=== PATIENT | female | born 1935 | race Hispanic/Latino ===

== ENCOUNTER 2018-06-18 22:48 | Observation (INO) | payer OTHER ==
[2018-06-18] MEDS ORDERED: FUROSEMIDE 40 MG/4 ML VIAL ONE (23:42)
[2018-06-18] MEDS ORDERED: IPRATROPIUM BROM 0.5MG/2.5ML ONE (23:42)
[2018-06-18] MEDS ORDERED: ALBUTEROL 2.5 MG/3 ML NEB SOL ONE (23:42)
[2018-06-19 00:13] LABS: Protime INR 1.31
[2018-06-19 00:16] LABS: Absolute Lymphocytes (CBC) 1.1 K/uL (0.7-4.9); Absolute Monocytes 0.6 K/uL (0.1-1.3); Absolute Neutrophil 2.4 K/uL (1.8-8.0); Basophils % 0.9 % (0-1.3); Eosinophils % 4.4 % (0-4.4); Hematocrit 32.5 % (36.0-45.0); Lymphocytes % 25.1 % (15.3-44.8); MPV 8.9 fL (7.6-11.3); Monocytes % 14.2 % (3.3-12.3); RBC Red Blood Cell Count 3.56 M/uL (3.86-4.86)
[2018-06-19 00:22] LABS: Albumin 2.6 g/dL (3.4-5.0); Bilirubin Direct 0.4 mg/dL (0-0.2); Bilirubin Total 0.8 mg/dL (0.2-1.0); Magnesium 2.1 mg/dL (1.8-2.4); Potassium 3.6 mmol/L (3.5-5.1); Protein, Total 7.1 g/dL (6.4-8.2); Troponin (Emerg Dept Use Only) 0.05 ng/mL (0.0-0.045)
[2018-06-19 00:37] LABS: Blood Morphology Comment NOTED (NOT SEEN); Platelet Estimate DECR; Urine White Blood Cell Casts OK
[2018-06-19 00:38] LABS: Ovalocytes 1+
--- NOTE | 2018-06-19 00:38 | ER ---
Nurse's Notes [facility] Name: Claudia Fowler Age: 82 yrs Sex: Female : 1935 Arrival Date: 06/18/2018 Time: 22:53 Bed 8 Private MD: Diagnosis: Acute systolic (congestive) heart failure Presentation: 06/18 23:02 Presenting complaint: She has been having cold symptoms for about two weeks. Today she ed1 had an increase in shortness of breath and swelling. Transition of care: patient was not received from another setting of care. Onset of symptoms was June 18, 2018. Risk Assessment: Do you want to hurt yourself or someone else? Patient reports no desire to harm self or others. Initial Sepsis Screen: Does the patient meet any 2 criteria? No. Patient's initial sepsis screen is negative. Does the patient have a suspected source of infection? No. Patient's initial sepsis screen is negative. Care prior to arrival: Medication(s) given: Pt was taking DayQuil and NyQuil. 23:02 Method Of Arrival: Wheelchair ed1 23:02 Acuity: REJI 3 ed1 Triage Assessment: 23:08 General: Appears in no apparent distress. Behavior is calm, cooperative. Pain: Denies ed1 pain. EENT: Oral mucosa is moist. Neuro: Level of Consciousness is awake, alert, obeys commands, Oriented to person, place, time, situation. Cardiovascular: Denies chest pain, Heart tones S1 S2 present. Cardiovascular: Edema is 2+ to left ankle and right ankle. Respiratory: Reports shortness of breath at rest cough that is non-productive, Onset: The symptoms/episode began/occurred about 2 weeks ago, the patient has mild shortness of breath. GI: Abdomen is non-distended, Bowel sounds present X 4 quads. Abd is soft and non tender X 4 quads. Patient currently denies diarrhea, nausea, vomiting. : No signs and/or symptoms were reported regarding the genitourinary system. Derm: Skin is fragile, is thin, Skin is dry, Skin is normal, Skin temperature is warm. Musculoskeletal: Circulation, motion, and sensation intact. Capillary refill < 3 seconds, in bilateral fingers. Range of motion: intact in all extremities. Historical: - Allergies: 23:08 No Known Allergies; ed1 - Home Meds: 23:08 aspirin 81 mg Oral chew 1 tab once daily [Active]; atorvastatin 20 mg oral tab 1 tab ed1 once daily [Active]; carvedilol 25 mg oral tab 1 tab 2 times per day [Active]; lisinopril 40 mg Oral tab 1 tab once daily [Active]; furosemide 20 mg Oral tab 1 tab once daily [Active]; Fish Oil 1,000 mg oral cap daily [Active]; Vitamin D Oral 1,000 unit daily [Active]; vitamin A 25,000 unit Oral cap 1 cap once daily [Active]; Vitamin B-12 1,000 mcg Oral TbER daily [Active]; - PMHx: 23:08 CAD; ed1 - PSHx: 23:08 CABG; ed1 - Immunization history:: Adult Immunizations up to date. - Social history:: Smoking status: Patient/guardian denies using tobacco. - Ebola Screening: : Patient negative for fever greater than or equal to 101.5 degrees Fahrenheit, and additional compatible Ebola Virus Disease symptoms Patient denies exposure to infectious person Patient denies travel to an Ebola-affected area in the 21 days before illness onset No symptoms or risks identified at this time. Screenin:12 Abuse screen: Denies threats or abuse. Denies injuries from another. Nutritional ed1 screening: No deficits noted. Tuberculosis screening: No symptoms or risk factors identified. Fall Risk No fall in past 12 months (0 pts). No secondary diagnosis (0 pts). No IV (0 pts). Ambulatory Aid- Crutches/Cane/Walker (15 pts). Gait- Weak (10 pts.). Mental Status- Oriented to own ability (0 pts). Total Alan Fall Scale indicates Low Risk Score (25-44 pts). Fall prevention measures have been instituted. Side Rails Up X 2 Frequent Obs/Assesments occuring Family Present and informed to notify staff if they need to leave bedside As available Patient and Family Educated on Fall Prevention Program and strategies. Assessment: 23:12 Reassessment: See triage assessment. Cardiovascular: Rhythm is sinus rhythm. ed1 Respiratory: Airway is patent Respiratory effort is even, unlabored, Respiratory pattern is regular, symmetrical, Breath sounds with wheezes bilaterally. 06/19 00:08 Reassessment: Patient appears in no apparent distress at this time. Patient and/or ed1 family updated on plan of care and expected duration. Pain level reassessed. Patient is alert, oriented x 3, equal unlabored respirations, skin warm/dry/pink. Pt reports mid back pain that is coming and going. Pt repositioned for comfort. Dr. Mcmillan notified, no new orders received. 00:57 Reassessment: Patient appears in no apparent distress at this time. Patient and/or ed1 family updated on plan of care and expected duration. Pain level reassessed. Patient is alert, oriented x 3, equal unlabored respirations, skin warm/dry/pink. Patient states feeling better. Patient states symptoms have improved. 01:24 Reassessment: Patient appears in no apparent distress at this time. Patient and/or ed1 family updated on plan of care and expected duration. Pain level reassessed. Patient is alert, oriented x 3, equal unlabored respirations, skin warm/dry/pink. Patient states feeling better. Patient states symptoms have improved. Vital Signs: 06/18 23:08 BP 147 / 63; Pulse 66; Resp 21; Temp 98.2(O); Pulse Ox 98% on R/A; Weight 90.72 kg (R); ed1 Height 5 ft. 0 in. (152.40 cm) (R); Pain 0/10; 06/19 00:08 BP 138 / 51; Pulse 65; Resp 18; Pulse Ox 97% on R/A; Pain 8/10; ed1 00:57 BP 122 / 77; Pulse 65; Resp 14; Temp 98(O); Pulse Ox 97% on R/A; Pain 5/10; ed1 01:24 BP 142 / 52; Pulse 65; Resp 15; Temp 97.9(O); Pulse Ox 96% on R/A; Pain 5/10; ed1 06/18 23:08 Body Mass Index 39.06 (90.72 kg, 152.40 cm) ed1 ED Course: 06/18 22:53 Patient arrived in ED. es 22:56 Tonia Call, HAYLEY is Primary Nurse. ed1 22:56 Santi Mcmillan MD is Attending Physician. gs 23:04 Triage completed. ed1 23:08 Arm band placed on. ed1 23:11 X-ray completed. Portable x-ray completed in exam room. Patient tolerated procedure sg4 well. 23:12 Patient has correct armband on for positive identification. Placed in gown. Bed in low ed1 position. Call light in reach. Side rails up X2. Adult w/ patient. phonograph mechanic on. Pulse ox on. NIBP on. Warm blanket given. 23:31 XRAY Chest (1 view) In Process Unspecified. EDMS 23:39 Initial lab(s) drawn, by me, sent to lab. Initial Neb Treatment Given as ordered ed1 Patient was instructed and evaluated on procedure. Inserted saline lock: 22 gauge in right forearm, using aseptic technique. Blood collected. 06/19 00:36 Ana Maria Napoles MD is Hospitalizing Provider. gs 01:24 No provider procedures requiring assistance completed. Patient admitted, IV remains in ed1 place. intact, No redness/swelling at site. Administered Medications: 06/18 23:38 Drug: Albuterol 2.5 mg Route: Inhalation; ed1 06/19 00:57 Follow up: Response: No adverse reaction ed1 06/18 23:38 Drug: AtroVENT Aerosol 0.5 mg Route: Inhalation; ed1 06/19 00:56 Follow up: Response: No adverse reaction ed1 06/18 23:38 Drug: Lasix 40 mg Route: IVP; Site: right forearm; ed1 06/19 00:56 Follow up: Urine output 200 ml; Response: No adverse reaction ed1 Output: 00:56 Urine: 200ml; Total: 200ml. ed1 Outcome: 00:36 Decision to Hospitalize by Provider. gs 01:24 Admitted to Med/surg accompanied by tech, family with patient, via wheelchair, room ed1 211, with chart, Report called to Chioma Ortega LVN 01:24 Condition: good 01:24 Discharge instructions given to patient, family, Instructed on the need for admit, Demonstrated understanding of instructions. 01:45 Patient left the ED. ak1 Signatures: Dispatcher [employer] EDMS Rylee Keita Erika, RN RN ed1 Marilia Carcamo RN RN ak1 Santi Mcmillan MD MD gs Garcia, Susana sg4 Corrections: (The following items were deleted from the chart) 00:57 06/18 23:08 BP 147 / 63; Pulse 66bpm; Resp 21bpm; Pulse Ox 98% RA; 90.72 kg Reported; ed1 Height 5 ft. 0 in. Reported; BMI: 39.0; Pain 0/10; ed1
--- NOTE | 2018-06-19 00:39 | EDPHYS ---
Physician Documentation [facility] Name: Claudia Fowler Age: 82 yrs Sex: Female : 1935 Arrival Date: 06/18/2018 Time: 22:53 Bed 8 Private MD: ED Physician Santi Mcmillan HPI: 06/19 00:31 This 82 yrs old Female presents to ER via Wheelchair with complaints of gs Shortness Of Breath, Swelling all over. 00:31 Onset: The symptoms/episode began/occurred 2 week(s) ago, and became worse and became gs persistent. Duration: The symptoms are continuous, and are steadily getting worse. The patient's shortness of breath is aggravated by exertion. Associated signs and symptoms: Pertinent negatives: chest pain, non-productive cough, productive cough, fever. Severity of symptoms: At their worst the symptoms were moderate in the emergency department the symptoms are unchanged. The patient has experienced similar episodes in the past, a few times. The patient has not recently seen a physician. Historical: - Allergies: 06/18 23:08 No Known Allergies; ed1 - Home Meds: 23:08 aspirin 81 mg Oral chew 1 tab once daily [Active]; atorvastatin 20 mg oral tab 1 tab ed1 once daily [Active]; carvedilol 25 mg oral tab 1 tab 2 times per day [Active]; lisinopril 40 mg Oral tab 1 tab once daily [Active]; furosemide 20 mg Oral tab 1 tab once daily [Active]; Fish Oil 1,000 mg oral cap daily [Active]; Vitamin D Oral 1,000 unit daily [Active]; vitamin A 25,000 unit Oral cap 1 cap once daily [Active]; Vitamin B-12 1,000 mcg Oral TbER daily [Active]; - PMHx: 23:08 CAD; ed1 - PSHx: 23:08 CABG; ed1 - Immunization history:: Adult Immunizations up to date. - Social history:: Smoking status: Patient/guardian denies using tobacco. - Ebola Screening: : Patient negative for fever greater than or equal to 101.5 degrees Fahrenheit, and additional compatible Ebola Virus Disease symptoms Patient denies exposure to infectious person Patient denies travel to an Ebola-affected area in the 21 days before illness onset No symptoms or risks identified at this time. ROS: 06/19 00:31 Cardiovascular: Positive for edema. gs All other systems are negative. Exam: 00:31 Head/Face: Normocephalic, atraumatic. Eyes: Pupils equal round and reactive to light, gs extra-ocular motions intact. Lids and lashes normal. Conjunctiva and sclera are non-icteric and not injected. Cornea within normal limits. Periorbital areas with no swelling, redness, or edema. ENT: Nares patent. No nasal discharge, no septal abnormalities noted. Tympanic membranes are normal and external auditory canals are clear. Oropharynx with no redness, swelling, or masses, exudates, or evidence of obstruction, uvula midline. Mucous membranes moist. Neck: Trachea midline, no thyromegaly or masses palpated, and no cervical lymphadenopathy. Supple, full range of motion without nuchal rigidity, or vertebral point tenderness. No Meningismus. Chest/axilla: Normal chest wall appearance and motion. Nontender with no deformity. No lesions are appreciated. 00:31 Abdomen/GI: Soft, non-tender, with normal bowel sounds. No distension or tympany. No guarding or rebound. No evidence of tenderness throughout. Back: No spinal tenderness. No costovertebral tenderness. Full range of motion. Skin: Warm, dry with normal turgor. Normal color with no rashes, no lesions, and no evidence of cellulitis. MS/ Extremity: Pulses equal, no cyanosis. Neurovascular intact. Full, normal range of motion. Neuro: Awake and alert, GCS 15, oriented to person, place, time, and situation. Cranial nerves II-XII grossly intact. Motor strength 5/5 in all extremities. Sensory grossly intact. Cerebellar exam normal. Normal gait. 00:31 Constitutional: The patient appears alert, awake. 00:31 Cardiovascular: Rate: normal, Rhythm: regular, Pulses: no pulse deficits are appreciated, Edema: 2+ edema to level of left midcalf and right midcalf. 00:31 ECG was reviewed by the Attending Physician. 00:31 Respiratory: moderate respiratory distress is noted, Respirations: shallow respirations, Breath sounds: wheezing: inspiratory expiratory Vital Signs: 06/18 23:08 BP 147 / 63; Pulse 66; Resp 21; Temp 98.2(O); Pulse Ox 98% on R/A; Weight 90.72 kg (R); ed1 Height 5 ft. 0 in. (152.40 cm) (R); Pain 0/10; 06/19 00:08 BP 138 / 51; Pulse 65; Resp 18; Pulse Ox 97% on R/A; Pain 8/10; ed1 00:57 BP 122 / 77; Pulse 65; Resp 14; Temp 98(O); Pulse Ox 97% on R/A; Pain 5/10; ed1 01:24 BP 142 / 52; Pulse 65; Resp 15; Temp 97.9(O); Pulse Ox 96% on R/A; Pain 5/10; ed1 06/18 23:08 Body Mass Index 39.06 (90.72 kg, 152.40 cm) ed1 MDM: 06/18 23:05 Patient medically screened. 06/19 00:31 Differential diagnosis: CHF exacerbation, Chronic Obstructive Pulmonary Disease gs Myocardial Infarction pneumonia. Data reviewed: vital signs, nurses notes, lab test result(s), EKG, radiologic studies. Counseling: I had a detailed discussion with the patient and/or guardian regarding: the historical points, exam findings, and any diagnostic results supporting the discharge/admit diagnosis, the need for further work-up and treatment in the hospital. Response to treatment: the patient's symptoms have markedly improved after treatment, and as a result, I will admit patient. 06/18 23:06 Order name: Basic Metabolic Panel 06/18 23:06 Order name: CBC with Diff 06/18 23:06 Order name: LFT's; Complete Time: 00: 06/18 23:06 Order name: Magnesium; Complete Time: 00: 06/18 23:06 Order name: NT PRO-BNP; Complete Time: 00: 06/18 23:06 Order name: PT-INR; Complete Time: 00: 06/18 23:06 Order name: Troponin (emerg Dept Use Only); Complete Time: 00: 06/18 23:06 Order name: XRAY Chest (1 view) 06/18 23:06 Order name: EKG; Complete Time: 23:07 06/18 23:06 Order name: Basic Metabolic Panel; Complete Time: 00: [facility] 06/19 00:38 Order name: CBC Smear Scan [facility] 06/18 23:06 Order name: Cardiac monitoring; Complete Time: 23:40 06/18 23:06 Order name: EKG - Nurse/Tech; Complete Time: 23:39 06/18 23:06 Order name: IV Saline Lock; Complete Time: 23:39 06/18 23:06 Order name: Labs collected and sent; Complete Time: 23:39 06/18 23:06 Order name: O2 Per Protocol; Complete Time: 23:39 06/18 23:06 Order name: O2 Sat Monitoring; Complete Time: 23:39 06/19 00:28 Order name: EKG - Nurse/Tech; Complete Time: 00:56 EC:31 Rate is 66 beats/min. Rhythm is regular. MA interval is normal. T waves are Inverted. No ST changes noted. Clinical impression: NSR w/ Non-specific ST/T Changes. Interpreted by me. Administered Medications: 06/18 23:38 Drug: Albuterol 2.5 mg Route: Inhalation; ed1 06/19 00:57 Follow up: Response: No adverse reaction ed1 06/18 23:38 Drug: AtroVENT Aerosol 0.5 mg Route: Inhalation; ed1 06/19 00:56 Follow up: Response: No adverse reaction ed1 06/18 23:38 Drug: Lasix 40 mg Route: IVP; Site: right forearm; ed1 06/19 00:56 Follow up: Urine output 200 ml; Response: No adverse reaction ed1 Disposition: 00:36 Critical Care:. gs Disposition: 06/19/18 00:36 Hospitalization ordered by Ana Maria Napoles for Observation. Preliminary diagnosis is Acute systolic (congestive) heart failure. - Bed requested for Telemetry/MedSurg (observation). - Status is Observation. ak1 - Condition is Stable. - Problem is new. - Symptoms have improved. UTI on Admission? No Critical care time excluding procedures: 00:36 Critical care time: Bedside Care: 10 minutes, Consultation: 10 minutes, Family gs Intervention: 10 minutes. Total time: 30 minutes Signatures: Dispatcher [employer] Fabiola Jerome RN RN kl Riggs, Erika, RN RN ed1 Marilia Carcamo RN RN ak1 Santi Mcmillan MD MD Corrections: (The following items were deleted from the chart) 01:07 00:36 Hospitalization Ordered by Ana Maria Napoles MD for Observation. Preliminary kl diagnosis is Acute systolic (congestive) heart failure. Bed requested for Telemetry/MedSurg (observation). Status is Observation. Condition is Stable. Problem is new. Symptoms have improved. UTI on Admission? No. gs 01:45 01:07 06/19/2018 00:36 Hospitalization Ordered by Ana Maria Napoles MD for Observation. ak1 Preliminary diagnosis is Acute systolic (congestive) heart failure. Bed requested for Telemetry/MedSurg (observation). Status is Observation. Condition is Stable. Problem is new. Symptoms have improved. UTI on Admission? No. kl
[2018-06-19] MEDS ORDERED: ACETAMINOPHEN 500 MG TAB PO PRN (00:57)
[2018-06-19] MEDS ORDERED: ONDANSETRON 4 MG/2 ML VIAL IV PRN (00:57)
[2018-06-19] MEDS ORDERED: FUROSEMIDE 40 MG/4 ML VIAL IV SCH (02:16)
--- NOTE | 2018-06-19 05:00 | P.HP ---
Certification for Inpatient Patient admitted to: Observation With expected LOS: <2 Midnights Practitioner: I am a practitioner with admitting privileges, knowledge of patient current condition, hospital course, and medical plan of care. Services: Services provided to patient in accordance with Admission requirements found in Title 42 Section 412.3 of the Code of Federal Regulations Patient History Date of Service: 06/19/18 Reason for admission: CHF exacerbation History of Present Illness: Ms Fowler is an 82 years old woman with history of CAD s/p CABG, HTN, who start about 2 weeks ago with cold signs. Over this time, she has had progressively increasing in lower extremity swelling and SOB. Today, her symptoms got worse and she came to ED for evaluation. The patient denied chest pain, dizziness, palpitation or sweating episodes. No history of fever or chills either. Her SOB its worse with light activity. Lab work remarkable for normal WBC count and elevated ProBNP. O2 sat was 98% on RA, CXR bilateral infiltrate consistent with pulmonary edema. Allergies No Known Allergies Allergy (Verified 06/19/18 02:16) Home medications list reviewed: Yes Home Medications: Aspirin Chewable [Aspirin Chewable*] 81 mg PO DAILY 06/19/18 Atorvastatin Calcium [Lipitor*] 20 mg PO DAILY 06/19/18 Carvedilol [Coreg*] 25 mg PO BID 06/19/18 Cholecalciferol (Vitamin D3) [Vitamin D 1000 Iu Tab*] 1,000 unit PO DAILY Cyanocobalamin [Vitamin B-12*] 1,000 mcg PO DAILY 06/19/18 Furosemide [Lasix*] 20 mg PO DAILY 06/19/18 Lisinopril [Zestril] 40 mg PO DAILY 06/19/18 [place]-3 Fatty Acids/Fish Oil [Fish Oil 1,000 mg Capsule] 1 cap PO DAILY Vitamin A [Vitamin A*] 25,000 unit PO DAILY 06/19/18 - Past Medical/Surgical History Has patient received pneumonia vaccine in the past: No Diabetic: No -: HTN -: CAD -: CHF -: BYPASS - Social History Smoking Status: Never smoker Alcohol use: No CD- Drugs: No Caffeine use: No Place of Residence: Home Review of Systems 10-point ROS is otherwise unremarkable Physical Examination - Vital Signs Temperature: 97.6 F Blood Pressure: 135/60 Pulse: 67 Respirations: 60 Pulse Ox (%): 16 - Physical Exam General: Alert, In no apparent distress HEENT: Atraumatic, PERRLA, Mucous membr. moist/pink, EOMI, Sclerae nonicteric Neck: Supple, 2+ carotid pulse no bruit, No LAD, Without JVD or thyroid abnormality Respiratory: Diminished, Crackles/rales (bibasilar rales) Cardiovascular: Regular rate/rhythm, Normal S1 S2 Gastrointestinal: Normal bowel sounds, No tenderness Musculoskeletal: No tenderness, Swelling (bilateral LE edema 2+) Integumentary: No rashes Neurological: Normal speech, Normal strength at 5/5 x4 extr, Normal tone, Normal affect Lymphatics: No axilla or inguinal lymphadenopathy - Studies Laboratory Data (last 24 hrs) 06/18/18 23:27: PT 15.5 H, INR 1.31 06/18/18 23:27: WBC 4.4, Hgb 10.9 L, Hct 32.5 L, Plt Count 95 L 06/18/18 23:27: Sodium 142, Potassium 3.6, BUN 15, Creatinine 1.03, Glucose 113 H, Magnesium 2.1, Total Bilirubin 0.8, AST 26, ALT 14, Alkaline Phosphatase 92 Assessment and Plan - Problems (Diagnosis) (1) Acute on chronic systolic CHF (congestive heart failure) Current Visit: Yes Status: Acute (2) CAD (coronary artery disease) Current Visit: Yes Status: Acute Qualifiers: Coronary Disease-Associated Artery/Lesion type: bypass graft [place] vs. transplanted heart: [place] heart Associated angina: without angina Qualified Code(s): I25.810 - Atherosclerosis of coronary artery bypass graft(s) without angina pectoris (3) HTN (hypertension) Current Visit: Yes Status: Acute Qualifiers: Hypertension type: essential hypertension Qualified Code(s): I10 - Essential (primary) hypertension - Plan The patient will be admitted to the hospital due to acute CHF exacerbation. No records of previous ECHO, however, her granddaughter, states that her EF is known to be abnormal, about 20%. Will order new ECHO today, continue close monitoring of body fluid balance, start IV lasix. Will resume home medication once verified. - Advance Directives Does patient have a Living Will: Yes Does patient have a Durable POA for Healthcare: Yes - Code Status/Comfort Care Code Status: Do Not Resuscitate
--- NOTE | 2018-06-19 07:58 | RAD REPORT ---
EXAM DESCRIPTION: RAD - Chest Single View - 06/18/2018 11:31 pm CLINICAL HISTORY: Shortness of breath COMPARISON: None. TECHNIQUE: AP portable chest image was obtained 2329 hours . FINDINGS: Lung volumes are low. Interstitial markings are prominent. Baseline for the patient is unk nown. Heart size and vasculature are prominent in part due to the shallow inspiration and portable [place]. Bilateral costophrenic angle blunting is present more pronounced on the left. No pneumothora x. CABG surgical changes are present. No acute bony abnormality seen. No acute aortic findings suspec neel. IMPRESSION: Limited shallow inspiration film showing evidence for a mild failure or volume overload. Increased left base opacification could indicate superimposed atelectasis and/or pneumonia.
[2018-06-19] MEDS: ENOXAPARIN 40 MG/0.4 ML SQ SCH (09:59)
[2018-06-19] MEDS: FUROSEMIDE 40 MG/4 ML VIAL IV SCH ×2 (09:59→16:26)
--- NOTE | 2018-06-19 12:16 | PN ---
Date of Progress Note: 06/19/2018 The patient is seen and examined. Chart reviewed and case discussed with RN. Family at the bedside. Treatment plan explained. All questions answered. Code Status: Do not resuscitate. Medications: List reviewed. Physical Examination: Vital Signs: Temperature 98, heart rate 65, blood pressure 138/61, respirations 20, O2 97% on room a ir. General: Awake, alert, oriented x3, not in any acute distress. Elderly female, obese. CV: S1 and S2. Regular rate and rhythm. Peripheral pulses present. Respiratory: Diminished breath sounds. Some crackles heard. No wheezing or stridor. Gastrointestinal: Abdomen is soft, nontender, nondistended. Positive bowel sounds. Extremities: No clubbing, cyanosis. The patient has 3+ peripheral edema. Neuro: Nonfocal. Laboratory Data: Troponin is 0.05. Chest x-ray shows mild failure or volume overload, left base opa cification could be atelectasis or pneumonia. Assessment And Plan: An 82-year-old female with: 1.Acute on chronic systolic congestive heart failure. Last known ejection fraction is 30%-35%. The patient has not seen her systems security analyst in a couple of years. Her systems security analyst is in [place]. We kerry l continue with daily weights. Strict I's and O's. We will continue with fluid-restricted diet. Co ntinue diuresis. Congestive heart failure guidelines. 2.Coronary artery disease, [place] artery and [place] heart, status post coronary artery bypass grafti ng, stable. 3.Essential hypertension, stable. Resume home medications as appropriate. 4.Obesity, body mass index of 33.9. 5.Gastrointestinal and deep venous thrombosis prophylaxis addressed. The patient is on Lovenox. Plan: Continue diuresis. The patient does have some mild elevated troponin, likely due to congestiv e heart failure. No chest pain. SA/MODL Voice ID: [id number] Report ID: [id number]
[2018-06-19] MEDS ORDERED: ATORVASTATIN 20 MG TAB PO SCH (21:00)
[2018-06-19] MEDS: CARVEDILOL 25 MG TAB PO SCH (21:11)
[2018-06-20] MEDS: FUROSEMIDE 40 MG/4 ML VIAL IV SCH ×2 (00:33→08:56)
[2018-06-20 05:57] VITALS: BMI 31.0
[2018-06-20 06:25] LABS: Albumin 2.2 g/dL (3.4-5.0); Bilirubin Total 0.9 mg/dL (0.2-1.0); Potassium 3.1 mmol/L (3.5-5.1); Protein, Total 6.2 g/dL (6.4-8.2); Troponin I 0.07 ng/mL (0.0-0.045)
[2018-06-20] MEDS ORDERED: KCL 20 MEQ/100 mL IVPB 20 MEQ/100 ML BAG IV SCH (07:00)
[2018-06-20] MEDS ORDERED: POTASSIUM CL SA 10 MEQ TAB PO ONE (07:45)
[2018-06-20 08:44] VITALS: O2SAT 93
[2018-06-20 08:54] VITALS: BP 157/65; TEMP 98.3
[2018-06-20] MEDS: ENOXAPARIN 40 MG/0.4 ML SQ SCH (08:56)
[2018-06-20] MEDS: CARVEDILOL 25 MG TAB PO SCH (08:56)
[2018-06-20] MEDS ORDERED: LISINOPRIL 20 MG TAB PO SCH (09:00)
[2018-06-20] MEDS ORDERED: ASPIRIN 81 MG CHEWABLE TABLET PO SCH (09:00)
--- NOTE | 2018-06-21 03:41 | DS ---
Date of Discharge: 06/20/2018 Discharge Diagnoses: 1.Acute on chronic systolic congestive heart failure. Last known ejection fraction 30%-35%. 2.Coronary artery disease [place] artery and [place] heart status post coronary artery bypass graft. 3.Essential hypertension. 4.Obesity, BMI of 33.9. 5.Elevated troponin level. 6.Hyperkalemia. Hospital Course: The patient is an 82-year-old female with history of coronary artery disease status post CABG, hypertension, comes in with progressive shortness of breath and lower extremity swelling. She was found to have CHF exacerbation. Her chest x-ray showed pulmonary edema. She was started o n CHF guidelines. She did have some hypokalemia and mildly elevated troponin levels, which was likel y related to demand mismatch. No chest pain. EKG did not show any acute ST elevation. The patient was then weighed daily. She diuresed well and had improvement in her symptoms. Her daily weight vel wed decrease and her fluid balance was negative. The patient's swelling improved. She was able to a mbulate, move around well. The patient was then cleared for discharge. She was sent home in stable condition. She was counseled regarding fluid restricted diet and to establish care with a cardiologi . She has not seen a change attendant since in [place] and has been several years. Medications: As per medication reconciliation list. Followup: Follow up with primary care physician in 2-3 days. Establish care with change attendant in [facility] area, Dr. Kaplan in [place]. Return to ER for worsening condition. Diet: Low-sodium, fluid-restricted diet. Activity: Fall precautions. The patient instructed to weigh herself daily, to increase the dose of Lasix when she finds herself getting more than 3 pounds and to call her physician. The patient refus ed home health with physical therapy. Her daughter and son-in-law are both paramedics and she has go od social support. She felt that she did not need home health and understands the risks. She does u se a cane for ambulation. Physical Examination: General: Awake, alert and oriented x3. Elderly female, obese. CV: S1, S2. Respiratory: Moving air well bilaterally. Abdomen: Soft, nontender, nondistended. Positive bowel sounds. Extremities: No clubbing or cyanosis. 1+ edema, improved significantly. Neurologic: Nonfocal. SA/MODL Voice ID: [id number] Report ID: [id number]
--- NOTE | 2018-06-21 07:59 | EKG ---
Test Date: 2018-06-18 Test Time: 23:13:15 Emt I/85: TERESA MEASUREMENT RESULTS: Intervals: Rate: 66 NH: 122 QRSD: 96 QT: 454 QTc: 475 [place]: P: 37 NH: 122 QRS: 76 T: -82 INTERPRETIVE STATEMENTS: Normal sinus rhythm Cannot rule out Anterior infarct, age undetermined Abnormal ECG Compared to ECG 05/14/2007 06:16:04 Myocardial infarct finding now present T-wave abnormality no longer present Possible ischemia no longer present Prolonged QT interval no longer present Electronically Signed On 06-21-18 07:54:40 CLINICAL RESEARCH MANAGER by Ayaz Rivero
--- NOTE | 2018-06-21 20:54 | EKG ---
Test Date: 2018-06-19 Test Time: 00:41:37 Stationary Boiler Fireman: JEANR MEASUREMENT RESULTS: Intervals: Rate: 66 VA: 146 QRSD: 96 QT: 442 QTc: 463 [place]: P: 96 VA: 146 QRS: -10 T: 206 INTERPRETIVE STATEMENTS: Normal sinus rhythm Nonspecific ST and T wave abnormality Abnormal ECG Compared to ECG 06/18/2018 23:13:15 ST (T wave) deviation now present Myocardial infarct finding no longer present Electronically Signed On 06-21-18 20:48:37 DRY HEAT ROOM ATTENDANT by Ayaz Rivero
== END 2018-06-20 12:10 | disposition home or self-care (01) ==
LOC: ER 22:48 → ERHOLD 06-19 00:36 → 2ND 06-19 01:37
PROVIDERS: ADMIT Internal Medicine; ATTEND Internal Medicine
DX: I11.0 Hypertensive heart disease with heart failure (principal); I50.23 Acute on chronic systolic (congestive) heart failure; R79.89 Other specified abnormal findings of blood chemistry; E87.5 Hyperkalemia; I25.10 Atherosclerotic heart disease of native coronary artery without angina pectoris; Z95.1 Presence of aortocoronary bypass graft; Z79.82 Long term (current) use of aspirin; E66.9 Obesity, unspecified; Z68.33 Body mass index [BMI] 33.0-33.9, adult
CPT/HCPCS: 36415 ×2; 71045; 80048; 80053; 80076; 83735; 83880; 84484 ×3; 85025; 85610; 93005 ×2; 94760 ×3; 96374; 99285; G0378 ×2; J1650 ×2; J1940 ×5

== ENCOUNTER 2019-03-21 09:06 | Inpatient (IN) | payer OTHER ==
--- NOTE | 2019-03-21 10:50 | R.PREADM ---
SCREENING DATE AND TIME 03/21/2019 09:22 (CDT) ANTICIPATED REHAB ADMISSION DATE 03/23/2019 REFERRING FACILITY [facility] REFERRAL DATE AND TIME 03/21/2019 09:23 (CDT) Previous Rehabilitation(s): No. REFERRING PHYSICIAN [facility] REHAB FACILITY [facility] CLINICAL LIAISON Robert Elena PHYSICIAN REVIEWER Dr. Milton Torres M.D. MR# [id number] NAME LUCIANELSON WESLEY ADDRESS [address] [facility] PHONE [facility] [id number] DATE OF 1935 AGE 83 SSN# [id number] GENDER female MARITAL STATUS RACE white ADMIT FROM Outside Hospital PRE-HOSPITAL LIVING SETTING Home HOME TYPE AND DETAILS Type of home: Single Family # of steps to enter the residence: 0 # of steps within the residence: 0 # of levels in the residence: 1 PRE-HOSPITAL LIVING WITH Attendant FAMILY SUPPORT No PRIMARY FAMILY CONTACT NAME ID [place] PRIMARY FAMILY CONTACT PHONE PHONE PRIMARY FAMILY CONTACT ON ADM.? no IS PRIMARY FAMILY CONTACT AUTH. REP.? no 1ST EMERGENCY CONTACT [id number] 1ST CONTACT PHONE PHONE 1ST CONTACT ON ADM. no IS 1ST CONTACT AUTH. REP.? no PHONE 2ND CONTACT ON ADM.? no PATIENT EMPLOYMENT STATUS Retired (for age) PATIENT EMPLOYER No Employer PAYOR INFORMATION: 1ST PAYOR NAME [email or web address] 1ST PAYOR PHONE 1ST PAYOR INJURY/ILLNESS DUE TO ACCIDENT? No ANOTHER REPUBLICAN RESPONSIBLE? No PRIMARY REHAB/ACUTE DIAGNOSIS: L STORAGE ARCHITECT occlusion ONSET DATE 03/10/2019 REHAB IMPAIRMENT CATEGORY (SHAORNA): 01 Stroke (STR) MEETS 60% rule AFFECTED EXTREMITIES: LLE, and LUE PRIMARY DIAGNOSIS-RELATED SURGERIES: No surgeries related to the primary diagnosis were performed. COMORBID REHAB/ACUTE DIAGNOSES: - N/A CHF hypertension ckd stage III intracranial Aneurysm INTERVENTIONS: - Hypertension Fluid management Medications VS RISK FOR COMPLICATIONS: - Hypertension CVA Hypotension MN TIA SUMMARY OF ACUTE HOSPITALIZATION: Pt. is a 83 yo Right-handed white female. On 03/10/2019 Pt. presented to [facility] with sudden onset of left-side weakness. On 03/10/2019 she was admitted to [facility] with diagnosis L STORAGE ARCHITECT occlusion. Her impairment category is Stroke 01 - Left Body (Right Brain) (01.1). Pre-morbidly, Pt. was independent/mod-I in Self-Care, Sphincter Control, Transfers Control, Locomotio n, Communication, and Social Cognition; and she had good Sphincter Control. Currently, she has deficits of Self-Care, Transfers Control, Locomotion, Communication, Social Cognit ion, Endurance, Balance, and Safety Awareness. Pt. is now referred to [facility] for acute in-patient rehabilitation in order to maximize patient's functional independence in activities of daily living, strength, ROM, and mobi lity. Patient has realistic goal of being discharged at assistance level 6-Jakob to reside at Home with Fam christina/Relatives. Patient was admitted on Mar 10 2019 to [facility] for acute L sided weakness. 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 Patient lives al one with family support. PAST MEDICAL HISTORY CAD valvular disease PAST SURGICAL HISTORY: CABG MEDICATION ALLERGIES: No Known Drug Allergies (NKDA) ENVIRONMENTAL ALLERGIES: - Substance Allergies None Known - Other Allergies None Known CODE STATUS: Full code WEIGHT/HEIGHT/BMI: WEIGHT 140 lbs HEIGHT 5' 0" BMI 27.3 DIET: - Diet Type Regular - Diet - Solid Texture Regular - Diet - Liquid Texture Regular - Tube Feed N/A REVIEW OF SYSTEMS: - Gen Alert and awake Lying in bed No apparent distress Oriented to: person, time, and place - CVS RRR VITAL SIGNS Temperature: 97.6 F SBP/DBP: 131/71 Pulse: 65 Resp: 18 Vital signs stable, afebrile MEDICATIONS/TREATMENT: Other- See attached MAR (Medication Administration Record). CURRENT SPHINCTER CONTROL: Pre-hospital bladder status: continent # of bladder accidents in the last 7 days prior to screenin Pre-hospital bowel status: continent # of bowel accidents in the last 7 days prior to screenin Last Bowel Movement Date: 03/21/2019 DETAILED CURRENT FUNCTIONAL STATUS: - Bladder accident frequency: Ind - No accidents in the past 7 days - Bowel accident frequency: Ind - No accidents in the past 7 days - Walking score based on distance walked: 1(<=50ft) - Wheelchair score based on distance traveled: 1(<=50ft) FUNCTIONAL STATUS: - Self-Care A. Eating Ind sup B. Grooming Ind sup C. Bathing Ind modA D. Dressing - Upper Ind sup E. Dressing - Lower Ind maxA F. Toileting Ind modA - Sphincter Control G: Bladder control Ind Ind H: Bowel control Ind Ind - Transfers Control I. Bed/Chair/Wheelchair Ind CGA J. Toilet Ind CGA K. Tub/Shower Ind Joaquim - Locomotion L. Walk/Wheelchair (C) Ind maxA L. Walk/Wheelchair (W) Ind ADNO M. Stairs Ind ADNO - Communication N. Comprehension (B) Ind sup O. Expression (B) Ind sup - Social Cognition P. Social Interaction Ind sup Q. Problem Solving Ind sup R. Memory Ind sup - Endurance Poor - Balance Poor - Safety Awareness Fair QI SCORES: - Self-Care A. Eating 05-Setup or clean-up assistance B. Oral hygiene 05-Setup or clean-up assistance C. Toileting hygiene 05-Setup or clean-up assistance E. Shower/bathe self 03-Partial/moderate assistance F. Upper body dressing 05-Setup or clean-up assistance G. Lower body dressing 04-Supervision or touching assistance H. Putting on/taking off footwear 88-Not attempted due to medical condition or safety concerns - Mobility A. Roll left and right 04-Supervision or touching assistance B. Sit to lying 04-Supervision or touching assistance C. Lying to sitting on side of bed 04-Supervision or touching assistance D. Sit to stand 03-Partial/moderate assistance E. Chair/cto-qc-lajho transfer 05-Setup or clean-up assistance F. Toilet transfer 05-Setup or clean-up assistance G. Car transfer 88-Not attempted due to medical condition or safety concerns I. Walk 10 feet 03-Partial/moderate assistance J. Walk 50 feet with two turns 88-Not attempted due to medical condition or safety concerns K. Walk 150 feet 88-Not attempted due to medical condition or safety concerns L. Walking 10 feet on uneven surfaces 88-Not attempted due to medical condition or safety concerns M. 1 step (curb) 88-Not attempted due to medical condition or safety concerns N. 4 steps 88-Not attempted due to medical condition or safety concerns O. 12 steps 88-Not attempted due to medical condition or safety concerns P. Picking up object 88-Not attempted due to medical condition or safety concerns R. Wheel 50 feet with two turns 88-Not attempted due to medical condition or safety concerns S. Wheel 150 feet 88-Not attempted due to medical condition or safety concerns - Bladder and Bowel Bladder continence 0-Always continent Bowel continence 0-Always continent CURRENT FUNC. DEFICITS: Self-Care, Transfers Control, Locomotion, Communication, Social Cognition, Endurance, Balance, and Sa fety Awareness THERAPY NOTES FROM ACUTE CARE: Attached. SPECIAL NEEDS: - Safety Concerns Skin breakdown precautions needed due to skin breakdown risk PRECAUTIONS: - Weight Bearing Precaution WBAT left LE PATIENT NEEDS ACTIVE AND ONGOING THERAPEUTIC INTERVENTION OF MULTIPLE THERAPY DISCIPLINES, INCLUDING: - Occupational Therapy Cognitive Retraining. Visual Perceptual Training. - Dietary and Nutrition Adequate Nutrition. Nutritional Education. Nutritional Supplements. - Speech Therapy Cognitive Training. Expressive Language Skills. Memory Strategies. Receptive Language Skills. Speech Intelligibility Training. PATIENT NEEDS CLOSE MEDICAL SUPERVISION BY A REHABILITATION PHYSICIAN FOR: Bowel and Bladder Management Coordination of Treatment Team Medical and Co-Morbidity Management PATIENT REQUIRES 24X7 REHAB NURSING FOR MEDICAL AND FUNCTIONAL MGT. OF THE FOLLOWING DEFICITS: ADL's Ambulation Bowel and Bladder Management Cognition Communication Disease Management Medication Management Patient/Family Education Providing Safe Environment Transfers PATIENT REQUIRES INTENSIVE, COORDINATED INTERDISCIPLINARY APPROACH TO REHAB: Arranging Home Equipment/Services Discharge Planning Family Intervention/Training Job Hand/Case Management PATIENT REHAB POTENTIAL: Silvino MYERS is able and expected to receive 3 hours of individualized therapy daily on at least 5 of every 7 days Silvino MYERS's prognosis for significant practical improvement within a reasonable period of time appe ars Good Expected level of measurable improvement will be of a practical value to Silvino MYERS's functional cap acity or adaptations to impairments Has a viable Discharge Plan Medically appropriate; condition is sufficiently stable to participate in intensive rehab program DISCHARGE PLAN: - Estimated Length of Stay (days) 17. - Consensus on plan Discharge plan has been discussed with primary caregiver. Patient/Family is in agreement with the clint n. Primary caregiver is in agreement with the plan. - Patient/Family Goals Return home with assistance. - Planned Living Setting Upon Discharge Home, to live with Family/Relatives. RECOMMENDED CARE LEVEL: IRF RECOMMENDATION DETAILS: Recommended Admission to Comprehensive Rehabilitation Program to Increase Functional [place] SCREENER'S COMPLETENESS CONFIRMATION: - Screening Confirmation The patient data collection on this preadmission screening form is finished PHYSICIANS REVIEW AND ADMISSION DETERMINATION Admit - Based on my review of the Pre-Admission Screening results, in my medical judgment and experie nce, I concur with the findings and recommend admission to [facility], as this patient requires an IRF level of care. SIGNATURE PANEL: Clinical Liaison - [electronically] signed by Trinity Canada on 03/21/2019 at 10:28 (CDT) Clinical Liaison - [electronically] signed by Robert Elena RN on 03/21/2019 at 10:30 (CDT) Physician Reviewer - [electronically] signed by Dr. Milton Torres M.D. on 03/21/2019 at 10:49 (CDT )
[2019-03-21] MEDS: ATORVASTATIN 80 MG TAB PO SCH (20:36)
[2019-03-21] MEDS: DIPHENHYDRAMINE 25 MG TAB/CAP PO PRN (20:36)
[2019-03-22] MEDS: carvediloL 25 MG TAB PO SCH ×2 (05:30→17:21)
[2019-03-22 06:36] LABS: Absolute Lymphocytes (CBC) 0.6 K/uL (0.7-4.9); Basophils % 0.5 % (0-1.3); Hematocrit 22.1 % (36.0-45.0); Lymphocytes % 22.4 % (15.3-44.8); MPV 8.9 fL (7.6-11.3); RBC Red Blood Cell Count 2.47 M/uL (3.86-4.86)
[2019-03-22 06:41] LABS: Albumin 1.9 g/dL (3.4-5.0); Magnesium 2.3 mg/dL (1.8-2.4); Potassium 4.2 mmol/L (3.5-5.1)
[2019-03-22] MEDS: CYANOCOBALAMIN 1,000 MCG TAB PO SCH (07:37)
[2019-03-22] MEDS: CLOPIDOGREL 75 MG TABLET PO SCH (07:37)
[2019-03-22] MEDS: ASPIRIN 81 MG CHEWABLE TABLET PO SCH (07:37)
[2019-03-22] MEDS: VITAMIN D 1000 UNIT TAB PO SCH (07:37)
[2019-03-22] MEDS: ISOSORBIDE MONO SR 30 MG TAB PO SCH (07:38)
[2019-03-22] MEDS ORDERED: HYDROCORTISONE 1 % CREAM 30GM TOP SCH (08:00)
[2019-03-22] MEDS: HYDROCORTISONE 1% OINTMENT TOP SCH ×2 (09:15→19:36)
[2019-03-22] MEDS: VITAMIN A PO SCH (09:15)
[2019-03-22 09:38] LABS: Anisocytosis 1+; Blood Morphology Comment NOTED (NOT SEEN); Hypochromasia 1+; Ovalocytes 1+; Platelet Estimate DECR
--- NOTE | 2019-03-22 10:49 | FAST ---
SHIFT START DATE/TIME: 03/22/2019 07:00 (CDT) SHIFT END DATE/TIME: 03/22/2019 19:00 (CDT) NAME NELSON MYERS DATE OF : 1935 DATE OF ADMISSION: 03/21/2019 17:38 (CDT) PHONE: AGE: 83 N# [id number] GENDER: Female ENCOUNTER PHYSICIAN: Dr. Milton Torres M.D. 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 EATING: EATING - STEP 1: Does the patient complete the activity by him/herself with no assistance (physical, verbal/nonverbal cueing, setup/clean-up)? No. EATING - STEP 2: Does the patient need only setup/clean-up assistance from one helper? Yes. 1. [id number] ADMISSION PERFORMANCE: Setup or clean-up assistance CODE: 05 ORAL HYGIENE: ORAL HYGIENE - STEP 1: Does the patient complete the activity by him/herself with no assistance (physical, verbal/nonverbal cueing, setup/clean-up)? No. ORAL HYGIENE - STEP 2: Does the patient need only setup/clean-up assistance from one helper? Yes. 1. [id number] ADMISSION PERFORMANCE: Setup or clean-up assistance CODE: 05 TOILETING HYGIENE: TOILETING HYGIENE - STEP 1: Does the patient complete the activity by him/herself with no assistance (physical, verbal/nonverbal cueing, setup/clean-up)? No. TOILETING HYGIENE - STEP 2: Does the patient need only setup/clean-up assistance from one helper? No. TOILETING HYGIENE - STEP 3: Does the patient need only verbal/nonverbal cueing or touching/steadying/contact guard assistance fro m one helper? Yes. 1. [id number] ADMISSION PERFORMANCE: Supervision or touching assistance CODE: 04 BATHING: Not assessed/no information CODE: - DRESSING - UPPER BODY: Not assessed/no information CODE: - DRESSING - LOWER BODY: Not assessed/no information CODE: - PUTTING ON/TAKING OFF FOOTWEAR: Not assessed/no information CODE: - ROLL LEFT AND RIGHT: Not assessed/no information CODE: - SIT TO LYING: Not assessed/no information CODE: - LYING TO SITTING: Not assessed/no information CODE: - SIT TO STAND: Not assessed/no information CODE: - TRANSFERS: BED, CHAIR: Not assessed/no information CODE: - TRANSFER TOILET: TOILET TRANSFER - STEP 1: Does the patient complete the activity by him/herself with no assistance (physical, verbal/nonverbal cueing, setup/clean-up)? No. TOILET TRANSFER - STEP 2: Does the patient need only setup/clean-up assistance from one helper? Yes. 1. [id number] ADMISSION PERFORMANCE: Setup or clean-up assistance CODE: 05 TRANSFERS: CAR: Not assessed/no information CODE: - WALK 10 FEET: Not assessed/no information CODE: - 1 STEP (CURB): Not assessed/no information CODE: - PICKING UP OBJECT: Not assessed/no information CODE: - DOES THE PATIENT USE A WHEELCHAIR/SCOOTER? CODE: EXPR WHEEL 50 FEET WITH TWO TURNS: Not assessed/no information CODE: - INDICATE THE TYPE OF WHEELCHAIR/SCOOTER USED: CODE: EXPR WHEEL 150 FEET: Not assessed/no information CODE: - INDICATE THE TYPE OF WHEELCHAIR/SCOOTER USED: CODE: EXPR BLADDER AND BOWEL: H350. BLADDER CONTINENCE (3-DAY ASSESSMENT PERIOD): Always continent (no documented incontinence) CODE: 0 H400. BOWEL CONTINENCE (3-DAY ASSESSMENT PERIOD): Always continent CODE: 0 SIGNATURE PANEL: The following modified sections: 1. [id number] Admission Performance, 1. [id number] Admission Performance, 1. [id number] Admission Performance, 1. [id number] Admission Performance, Code, H350. Bladder Continence (3 -day assessment period), H400. Bowel Continence (3-day assessment period) were [electronically] gilberto d by Anibal Cervantes on ThuMar 22 2019 10:49:10 GMT-0500 (Central Daylight Time)
[2019-03-22] MEDS ORDERED: NA CHLORIDE 0.9% 250 ML ONE ×2 (11:37→17:45)
--- NOTE | 2019-03-22 16:40 | FAST ---
ENCOUNTER DATE AND TIME: 03/22/2019 08:00 (CDT) NAME NELSON MYERS DATE OF : 1935 DATE OF ADMISSION: 03/21/2019 17:38 (CDT) PHONE: AGE: 83 N# [id number] GENDER: Female ENCOUNTER PHYSICIAN: Dr. Milton Torres M.D. 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 ROLL LEFT AND RIGHT: ROLL LEFT AND RIGHT - STEP 1: Does the patient complete the activity by him/herself with no assistance (physical, verbal/nonverbal cueing, setup/clean-up)? No. ROLL LEFT AND RIGHT - STEP 2: Does the patient need only setup/clean-up assistance from one helper? No. ROLL LEFT AND RIGHT - STEP 3: Does the patient need only verbal/nonverbal cueing or touching/steadying/contact guard assistance fro m one helper? Yes. 1. [id number] ADMISSION PERFORMANCE: Supervision or touching assistance CODE: 04 SIT TO LYING: SIT TO LYING - STEP 1: Does the patient complete the activity by him/herself with no assistance (physical, verbal/nonverbal cueing, setup/clean-up)? No. SIT TO LYING - STEP 2: Does the patient need only setup/clean-up assistance from one helper? No. SIT TO LYING - STEP 3: Does the patient need only verbal/nonverbal cueing or touching/steadying/contact guard assistance fro m one helper? Yes. 1. [id number] ADMISSION PERFORMANCE: Supervision or touching assistance CODE: 04 LYING TO SITTING: LYING TO SITTING ON SIDE OF BED - STEP 1: Does the patient complete the activity by him/herself with no assistance (physical, verbal/nonverbal cueing, setup/clean-up)? No. LYING TO SITTING ON SIDE OF BED - STEP 2: Does the patient need only setup/clean-up assistance from one helper? No. LYING TO SITTING ON SIDE OF BED - STEP 3: Does the patient need only verbal/nonverbal cueing or touching/steadying/contact guard assistance fro m one helper? Yes. 1. [id number] ADMISSION PERFORMANCE: Supervision or touching assistance CODE: 04 SIT TO STAND: SIT TO STAND - STEP 1: Does the patient complete the activity by him/herself with no assistance (physical, verbal/nonverbal cueing, setup/clean-up)? No. SIT TO STAND - STEP 2: Does the patient need only setup/clean-up assistance from one helper? No. SIT TO STAND - STEP 3: Does the patient need only verbal/nonverbal cueing or touching/steadying/contact guard assistance fro m one helper? No. SIT TO STAND - STEP 4: Does the patient need physical assistance - for example lifting or trunk support from one helper - wi th the helper providing less than half of the effort? Yes. 1. [id number] ADMISSION PERFORMANCE: Partial/moderate assistance CODE: 03 TRANSFERS: BED, CHAIR: CHAIR/[id number] TRANSFER - STEP 1: Does the patient complete the activity by him/herself with no assistance (physical, verbal/nonverbal cueing, setup/clean-up)? No. CHAIR/[id number]-UK-[id number] TRANSFER - STEP 2: Does the patient need only setup/clean-up assistance from one helper? No. CHAIR/[id number] TRANSFER - STEP 3: Does the patient need only verbal/nonverbal cueing or touching/steadying/contact guard assistance fro m one helper? No. CHAIR/[id number] TRANSFER - STEP 4: Does the patient need physical assistance - for example lifting or trunk support from one helper - wi th the helper providing less than half of the effort? Yes. 1. [id number] ADMISSION PERFORMANCE: Partial/moderate assistance CODE: 03 TRANSFER TOILET: TOILET TRANSFER - STEP 1: Does the patient complete the activity by him/herself with no assistance (physical, verbal/nonverbal cueing, setup/clean-up)? No. TOILET TRANSFER - STEP 2: Does the patient need only setup/clean-up assistance from one helper? No. TOILET TRANSFER - STEP 3: Does the patient need only verbal/nonverbal cueing or touching/steadying/contact guard assistance fro m one helper? No. TOILET TRANSFER - STEP 4: Does the patient need physical assistance - for example lifting or trunk support from one helper - wi th the helper providing less than half of the effort? Yes. 1. [id number] ADMISSION PERFORMANCE: Partial/moderate assistance CODE: 03 TRANSFERS: CAR: Not attempted due to environmental limitations (e.g., lack of equipment, weather constraints) CODE: 10 WALK 10 FEET: WALK 10 FEET - STEP 1: Does the patient complete the activity by him/herself with no assistance (physical, verbal/nonverbal cueing, setup/clean-up)? No. WALK 10 FEET - STEP 2: Does the patient need only setup/clean-up assistance from one helper? No. WALK 10 FEET - STEP 3: Does the patient need only verbal/nonverbal cueing or touching/steadying/contact guard assistance fro m one helper? Yes. 1. [id number] ADMISSION PERFORMANCE: Supervision or touching assistance CODE: 04 WALK 50 FEET: WALK 50 FEET - STEP 1: Does the patient complete the activity by him/herself with no assistance (physical, verbal/nonverbal cueing, setup/clean-up)? No. WALK 50 FEET - STEP 2: Does the patient need only setup/clean-up assistance from one helper? No. WALK 50 FEET - STEP 3: Does the patient need only verbal/nonverbal cueing or touching/steadying/contact guard assistance fro m one helper? Yes. 1. [id number] ADMISSION PERFORMANCE: Supervision or touching assistance CODE: 04 WALK 150 FEET: Not attempted due to medical condition or safety concerns CODE: 88 WALK 10 FEET UNEVEN: Not attempted due to medical condition or safety concerns CODE: 88 1 STEP (CURB): Not attempted due to medical condition or safety concerns CODE: 88 PICKING UP OBJECT: Not attempted due to medical condition or safety concerns CODE: 88 DOES THE PATIENT USE A WHEELCHAIR/SCOOTER? Q1. DOES THE PATIENT USE A WHEELCHAIR/SCOOTER?: No CODE: 0 INDICATE THE TYPE OF WHEELCHAIR/SCOOTER USED: CODE: EXPR INDICATE THE TYPE OF WHEELCHAIR/SCOOTER USED: CODE: EXPR BLADDER AND BOWEL: CODE: EXPR CODE: EXPR SIGNATURE PANEL: The following modified sections: 1. [id number] Admission Performance, 1. [id number] Admission Performance, 1. [id number] Admission Performance, 1. EU2162C Admission Performance, 1. [id number] Admission Performance, 1. [id number] Admission Performance, 1. [id number] Admission Performance, 1. [id number] Admission Performance , Q1. Does the patient use a wheelchair/scooter? were [electronically] signed by Joaquín Loja PT on ThuMar 22 2019 16:39:54 T-0500 (Central Daylight Time)
[2019-03-22] MEDS: FUROSEMIDE 20 MG/ 2ML VIAL IV SCH ×2 (17:21→22:21)
[2019-03-22 18:48] LABS: Urine Appearance CLEAR; Urine Bilirubin NEGATIVE (NEG); Urine Blood TRACE (NEG); Urine Color DK YELLOW; Urine Glucose NEGATIVE (NEG); Urine Protein NEGATIVE (NEG); Urine Specific Gravity 1.015 (1.005-1.030); Urine Urobilinogen 0.2 mg/dL (0.2-1.0); Urine pH 5.5 (5.0-7.0)
[2019-03-22] MEDS: MAGNESIUM OXIDE 400 MG TAB PO SCH (19:36)
[2019-03-22] MEDS: ACETAMINOPHEN 500 MG TAB PO PRN (19:36)
[2019-03-22] MEDS: ATORVASTATIN 80 MG TAB PO SCH (19:36)
[2019-03-22] MEDS: PROMOD 30 ML DOSE PO SCH (19:37)
[2019-03-22 19:53] LABS: Urine Amorphous Sediment 3+ /HPF (NONE SEEN); Urine Bacteria >50 /HPF (<20); Urine Culture Reflex Order REFLEXED; Urine Mucus 3+ /HPF (NONE SEEN)
--- NOTE | 2019-03-22 21:21 | R.HP ---
FACILITY: [facility] ENCOUNTER DATE AND TIME: 03/22/2019 20:59 (CDT) MR#: [id number] NAME NELSON MYERS ADDRESS: [id number] CITY: [place]IP [address] PHONE: DATE OF : 1935 AGE: 83 SSN# [id number] GENDER: Female DEXTERITY Right-handed MARITAL STATUS RACE White PRE-HOSPITAL LIVING SETTING Home PRE-HOSPITAL LIVING WITH Attendant ENCOUNTER PHYSICIAN: Dr. Milton Torres M.D. REFERRING DOCTOR: Elizabeth Paris DATE OF ADMISSION: 03/21/2019 17:38 (CDT) REFERRING FACILITY [facility] HOME TYPE AND DETAILS: Type of home: Single Family # of steps to enter the residence: 0 # of steps within the residence: 0 # of levels in the residence: 1 ADMISSION DIAGNOSIS: L SEAMER ELASTIC BAND occlusion ONSET DATE: 03/10/2019 PRIMARY DIAGNOSIS-RELATED SURGERIES: No surgeries related to the primary diagnosis were performed. SECONDARY/COMORBID DIAGNOSES (TIERED): - N/A CHF hypertension ckd stage III intracranial Aneurysm Severe anemia, will get 2 units of PRBCs. HISTORY OF PRESENT ILLNESS (HPI): Pt. is a 83 yo Right-handed white female. On 03/10/2019 Pt. presented to [facility] with sudden onset of left-side weakness. On 03/10/2019 she was admitted to [facility] with diagnosis L SEAMER ELASTIC BAND occlusion. Her impairment category is Stroke 01 - Left Body (Right Brain) (01.1). Pre-morbidly, Pt. was independent/mod-I in Self-Care, Sphincter Control, Transfers Control, Locomotio n, Communication, and Social Cognition; and she had good Sphincter Control. Currently, she has deficits of Self-Care, Transfers Control, Locomotion, Communication, Social Cognit ion, Endurance, Balance, and Safety Awareness. Pt. is now referred to [facility] for acute in-patient rehabilitation in order to maximize patient's functional independence in activities of daily living, strength, ROM, and mobi lity. Patient has realistic goal of being discharged at assistance level 6-Jakob to reside at Home with Fam christina/Relatives. Patient was admitted on Mar 10 2019 to [facility] for acute L sided weakness. 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 Patient lives al one with family support. MEDICATION ALLERGIES: No Known Drug Allergies (NKDA) ENVIRONMENTAL ALLERGIES: - Substance Allergies None Known - Other Allergies None Known PAST MEDICAL HISTORY: CAD valvular disease PAST SURGICAL HISTORY: CABG FAMILY HISTORY: Family history is not contributory. REVIEW OF SYSTEMS: - Gen No Chills Fatigue No Fever - Eyes No Double Vision No itchiness - ENMT No Difficulty Swallowing - CVS No Chest Discomfort No Chest Pain Fatigue No Weight Gain - Resp No Cough No Shortness of Breath - GI Continent No Abdominal Pain No Constipation No Diarrhea - Continent No Kidney Pain No Painful Urination No Urinary Urgency - MSK No Joint Pain Muscle Cramps Stiffness - Skin No Itching No Rash No Suspicious Lesions - Neuro Coordination Difficulty Difficulty with Concentration No Memory Loss No Seizures Weakness - Psych No Anxiety No Depression No HIV Exposure No Persistent Infections No Seasonal Allergies - Endo No Cold/Heat Intolerance No Excessive Hunger No Excessive Thirst No Excessive Urination PHYSICAL EXAM - Gen Alert and awake Lying in bed No apparent distress Oriented to: person, time, and place - Skin Allergic rash and edema of the the legs No abnormalities - Eyes No abnormalities - ENMT No abnormalities - Neck No abnormalities - CVS RRR - Chest No abnormalities - Resp Clear to auscultation - Abd + bowel sounds - GI nondistended Deferred - No abnormalities - Ext Mild to moderate bilateral lower extremity edema. - MSK 4+/5 weakness in left lower extremity - Neuro 4/5 strength left lower extremity. - Psych No abnormalities VITAL SIGNS Temperature: 97.6 F SBP/DBP: 131/71 Pulse: 65 Resp: 18 NURSING: - Shower allowing shower - Bladder care per protocol - Skin care per protocol PRECAUTIONS: - Weight Bearing Precaution WBAT left LE ACTIVITIES OOB only with supervision FUNCTIONAL STATUS: - Self-Care A. Eating Ind sup B. Grooming Ind sup C. Bathing Ind modA D. Dressing - Upper Ind sup E. Dressing - Lower Ind maxA F. Toileting Ind modA - Sphincter Control G: Bladder control Ind Ind H: Bowel control Ind Ind - Transfers Control I. Bed/Chair/Wheelchair Ind CGA J. Toilet Ind CGA K. Tub/Shower Ind Joaquim - Locomotion L. Walk/Wheelchair (C) Ind maxA L. Walk/Wheelchair (W) Ind ADNO M. Stairs Ind ADNO - Communication N. Comprehension (B) Ind sup O. Expression (B) Ind sup - Social Cognition P. Social Interaction Ind sup Q. Problem Solving Ind sup R. Memory Ind sup - Endurance Poor - Balance Poor - Safety Awareness Fair QI SCORES: - Self-Care A. Eating 05-Setup or clean-up assistance B. Oral hygiene 05-Setup or clean-up assistance C. Toileting hygiene 05-Setup or clean-up assistance E. Shower/bathe self 03-Partial/moderate assistance F. Upper body dressing 05-Setup or clean-up assistance G. Lower body dressing 04-Supervision or touching assistance H. Putting on/taking off footwear 88-Not attempted due to medical condition or safety concerns - Mobility A. Roll left and right 04-Supervision or touching assistance B. Sit to lying 04-Supervision or touching assistance C. Lying to sitting on side of bed 04-Supervision or touching assistance D. Sit to stand 03-Partial/moderate assistance E. Chair/gcs-mw-yggve transfer 05-Setup or clean-up assistance F. Toilet transfer 05-Setup or clean-up assistance G. Car transfer 88-Not attempted due to medical condition or safety concerns I. Walk 10 feet 03-Partial/moderate assistance J. Walk 50 feet with two turns 88-Not attempted due to medical condition or safety concerns K. Walk 150 feet 88-Not attempted due to medical condition or safety concerns L. Walking 10 feet on uneven surfaces 88-Not attempted due to medical condition or safety concerns M. 1 step (curb) 88-Not attempted due to medical condition or safety concerns N. 4 steps 88-Not attempted due to medical condition or safety concerns O. 12 steps 88-Not attempted due to medical condition or safety concerns P. Picking up object 88-Not attempted due to medical condition or safety concerns R. Wheel 50 feet with two turns 88-Not attempted due to medical condition or safety concerns S. Wheel 150 feet 88-Not attempted due to medical condition or safety concerns - Bladder and Bowel Bladder continence 0-Always continent Bowel continence 0-Always continent CURRENT FUNC. DEFICITS: Self-Care, Transfers Control, Locomotion, Communication, Social Cognition, Endurance, Balance, and Sa fety Awareness MEDICATIONS: - Other See attached MAR (Medication Administration Record) ASSESSMENT: Pt. is a 83 yo Right-handed white female.On 03/10/2019 Pt. presented to [facility] with sudden o nset of left-side weakness.On 03/10/2019 she was admitted to [facility] with diagnosis L SEAMER ELASTIC BAND occ lusion.Her impairment category is Stroke 01 - Left Body (Right Brain) (01.1).Pre-morbidly, Pt. was i ndependent/mod-I in Self-Care, Sphincter Control, Transfers Control, Locomotion, Communication, and S ocial Cognition; and she had good Sphincter Control.Currently, she has deficits of Self-Care, Transfe rs Control, Locomotion, Communication, Social Cognition, Endurance, Balance, and Safety Awareness.Pt. is now referred to [facility] for acute in-patient rehabilitation in order to maximize patient's functional independence in activities of daily living, strength, ROM, and mobilit y.- Rehab Goal Patient has realistic goal of being discharged at assistance level 6-Jakob to reside at Home with Fam christina/Relatives. Patient was admitted on Mar 10 2019 to [facility] for acute L sided weakness. 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 Patient lives al one with family support. REHAB PLAN: for Dementia, TBI, Stroke, or others - Physical Therapy Gait dysfunction - to improve, our physical therapists will perform initial evaluation of pt's status upon admission and devise an individualized program for Gait Training, and Wheel Chair mobility Inability to transfer - to improve, our physical therapists will perform initial evaluation of pt's s tatus upon admission and devise an individualized program for Bed mobility Need for home safety evaluation - to improve, our physical therapists will perform initial evaluation of pt's status upon admission and devise an individualized program for Home Evaluation Need in caregiver upon discharge - to improve, our physical therapists will perform initial evaluatio n of pt's status upon admission and devise an individualized program for Caregiver Training New precaution - to improve, our physical therapists will perform initial evaluation of pt's status u crista admission and devise an individualized program for Patient precaution education Edema - to improve, our physical therapists will perform initial evaluation of pt's status upon admi ssion and devise an individualized program for Elevation Training, and Lymphedema Therapy Poor balance - to improve, our physical therapists will perform initial evaluation of pt's status upo n admission and devise an individualized program for Balance Training Poor endurance - to improve, our physical therapists will perform initial evaluation of pt's status u crista admission and devise an individualized program for Endurance Training Weakness - to improve, our physical therapists will perform initial evaluation of pt's status upon ad mission and devise an individualized program for Aquatic Therapy, Neuromuscular Reeducation, and Stre ngthening Achieving independence - to improve, our physical therapists will perform initial evaluation of pt's status upon admission and devise an individualized program for Community Reintegration Activities - Occupational Therapy ADL deficits - to improve, our occupation therapists will perform initial evaluation of pt's status u crista admission and devise an individualized program for Bathing, Bed mobility, Community Reintegration , Cooking, Dressing, Eating, Fine Motor Skills, Grooming, Homemaking, Kitchen Mobility, Laundry, Rosey ent Education, Safety Awareness, Splinting - Positioning, Transfers(Toilet, Tub, Shower), and Wheel C hair Management Cognitive deficits - to improve, our occupation therapists will perform initial evaluation of pt's st atus upon admission and devise an individualized program for Cognition - orientation Need for career development manager - to improve, our occupation therapists will perform initial evaluation of pt's s tatus upon admission and devise an individualized program for Caregiver Training Weakness - to improve, our occupation therapists will perform initial evaluation of pt's status upon admission and devise an individualized program for Aquatic Therapy, Balance, Endurance, UE ROM, and U E strengthening MEDICAL PLAN: - Diet Type Start Regular - Diet - Liquid Texture Start Regular - Tube Feed Start N/A - Bladder care per protocol - Weight Bearing Precaution WBAT left LE - Skin care per protocol - Other See attached MAR (Medication Administration Record) - Diet - Solid Texture Regular - Shower shower DISCHARGE PLAN: - Estimated Length of Stay (days) 17. - Consensus on plan Discharge plan has been discussed with primary caregiver. Patient/Family is in agreement with the clint n. Primary caregiver is in agreement with the plan. - Patient/Family Goals Return home with assistance. - Planned Living Setting Upon Discharge Home, to live with Family/Relatives. SIGNATURE PANEL: (CDT)
--- NOTE | 2019-03-22 21:24 | PAPE ---
PATIENT: [facility] MR# [id number] REFERRING DOCTOR Elizabeth Paris EVALUATION DATE AND TIME 03/22/2019 21:22 (CDT) NAME NELSON MYERS DATE OF 1935 AGE 83 PHONE SSN# [id number] GENDER female EVALUATING PHYSICIAN Dr. Milton Torres M.D. ADMISSION DIAGNOSIS: L BINGO CASHIER occlusion ONSET DATE 03/10/2019 SECONDARY/COMORBID DIAGNOSES TIERED: - N/A CHF hypertension ckd stage III intracranial Aneurysm Severe anemia, will get 2 units of PRBCs. POST-ADMISSION FUNCTIONAL/MEDICAL STATUS: - Bladder Same accident frequency: Ind - No accidents in the past 7 days - Bowel Same accident frequency: Ind - No accidents in the past 7 days - Walking Same score based on distance walked: 1(<=50ft) - Wheelchair Same score based on distance traveled: 1(<=50ft) STATUS CHANGE EVALUATION: No change in Functional or Medical Status is identified compared with Pre-Admission screening. PATIENT NEEDS CLOSE MEDICAL SUPERVISION BY A REHABILITATION PHYSICIAN FOR: Bowel and Bladder Management Coordination of Treatment Team Medical and Co-Morbidity Management PATIENT REQUIRES 24X7 REHAB NURSING FOR MEDICAL AND FUNCTIONAL MGT. OF THE FOLLOWING DEFICITS: ADL's Ambulation Bowel and Bladder Management Cognition Communication Disease Management Medication Management Patient/Family Education Providing Safe Environment Transfers PATIENT REQUIRES INTENSIVE, COORDINATED INTERDISCIPLINARY APPROACH TO REHAB: Arranging Home Equipment/Services Discharge Planning Family Intervention/Training Tomb Maker Helper/Case Management LIST OF IDENTIFIED AND POTENTIAL PROBLEMS: Alteration in leisure activities Bladder, Incontinence Blood Pressure, Hypertension/hypotension Issues Bowel, Incontinence Fluid volume overload related to Congestive Heart Failure (CHF) Infection, Actual or Potential Mobility Impaired Pain, Alteration in Comfort Self Care Deficit Skin Integrity, Actual or Potential Urinary Tract Infection (UTI), Actual or Potential RISK FOR COMPLICATIONS - Hypertension CVA. Hypotension. MA. TIA. INTERVENTIONS - Hypertension PATIENT COULD BE AT RISK FOR COMPLICATIONS FROM ADVERSE MEDICAL CONDITIONS DUE TO HIS/HER COMORBIDITI ES AND THE RIGORS OF THE INTENSIVE REHABILLITATION PROGRAM. METHODS OR INTERVENTIONS TO AVOID COMPLIC ATIONS INCLUDE: - Bleeding Stroke patients assessed for lethargy or change in status. - Infection Clinical staff to assess and manage the signs and symptoms of infection including fever, redness, war mth, etc. - Urinary Tract Infection - Aspiration Clinical staff will assess and manage coughing, drooling, congestion. - Falls Patient will be evaluated for Fall Precautions and will be placed on Fall Precautions as indicated pe r protocol. - Skin Breakdown Nursing will assess skin daily using assessment tool and will place on Skin Breakdown Precautions as indicated per protocol. - Pain Clinical staff may employ non-medication methods such as massage, distraction, decrease stimulus, etc . as needed. Clinical staff will assess patient's pain level every shift per protocol to assess and e nsure pain management effectiveness. Medications will be given and the pain level re-assessed. PRELIMINARY PLAN OF CARE: - Physical Therapy Patient needs Physical Therapy for a daily minimum of 1.5 hours at least 5 out of 7 days, to improve: Mobility, Strengthening, Transfers, Stretching, ROM, Endurance, Ability to manage stairs, Gait, and Balance. - Speech Therapy Patient needs Speech Therapy for a daily minimum of 0.5 hours at least 5 out of 7 days, to improve: S wallowing, Cognition, Language Skills, and Compensatory Strategies. - Rehabilitation Nursing Patient requires 24x7 Rehabilitation Nursing for: Pain Issues, Identifying and preventing risk factor s, Monitoring and reporting current medical conditions, Assisting with ambulation and transfer, Fran ting with all ADL-s, Teaching patients about disease process and medications, Family teaching, Provid ing safe environment, Bowel and Bladder Issues, Skin Integrity, and Medication Management. Patient needs Tomb Maker Helper and/or Case Management for: Discharge Planning, Arranging Home Equipmen t or Services, and Family Interventions. - Dietary and Nutrition Services Patient needs Dietary and Nutrition Services for: Adequate Nutrition, Nutritional Supplements, and Nu tritional Education. - Occupational Therapy Patient needs Occupational Therapy for a daily minimum of 1.5 hours at least 5 out of 7 days, to impr ove Activities of Daily Living, including: Eating, Grooming, Bathing, Dressing, Toileting, Toilet Tra nsfers, Community Reintegration, Higher functional activities, Adaptive Equipment, Splinting, Househo ld Tasks, and Other activities as determined. QI SCORES: - Self-Care A. Eating 05-Setup or clean-up assistance B. Oral hygiene 05-Setup or clean-up assistance C. Toileting hygiene 05-Setup or clean-up assistance E. Shower/bathe self 03-Partial/moderate assistance F. Upper body dressing 05-Setup or clean-up assistance G. Lower body dressing 04-Supervision or touching assistance H. Putting on/taking off footwear 88-Not attempted due to medical condition or safety concerns - Mobility A. Roll left and right 04-Supervision or touching assistance B. Sit to lying 04-Supervision or touching assistance C. Lying to sitting on side of bed 04-Supervision or touching assistance D. Sit to stand 03-Partial/moderate assistance E. Chair/unh-gz-khczv transfer 05-Setup or clean-up assistance F. Toilet transfer 05-Setup or clean-up assistance G. Car transfer 88-Not attempted due to medical condition or safety concerns I. Walk 10 feet 03-Partial/moderate assistance J. Walk 50 feet with two turns 88-Not attempted due to medical condition or safety concerns K. Walk 150 feet 88-Not attempted due to medical condition or safety concerns L. Walking 10 feet on uneven surfaces 88-Not attempted due to medical condition or safety concerns M. 1 step (curb) 88-Not attempted due to medical condition or safety concerns N. 4 steps 88-Not attempted due to medical condition or safety concerns O. 12 steps 88-Not attempted due to medical condition or safety concerns P. Picking up object 88-Not attempted due to medical condition or safety concerns R. Wheel 50 feet with two turns 88-Not attempted due to medical condition or safety concerns S. Wheel 150 feet 88-Not attempted due to medical condition or safety concerns - Bladder and Bowel Bladder continence 0-Always continent Bowel continence 0-Always continent POTENTIAL FUNCTIONAL GOALS FOR PATIENT TO ACHIEVE BY DISCHARGE: - Safety Precaution Patient will remain free from falls or injury at time of discharge. - Bed Mobility Patient will perform bed mobility at 4-Joaquim level of assistance. - Transfers Patient will complete transfers from bed to chair at 4-Joaquim level of assistance. - Mobility Patient will ambulate 150 ft with 4-Joaquim level of assistance with RW. PATIENT REHAB POTENTIAL Silvino MYERS is able and expected to receive 3 hours of individualized therapy daily on at least 5 of every 7 days Silvino MYERS's prognosis for significant practical improvement within a reasonable period of time appe ars Good Expected level of measurable improvement will be of a practical value to Silvino MYERS's functional cap acity or adaptations to impairments Has a viable Discharge Plan Medically appropriate; condition is sufficiently stable to participate in intensive rehab program DISCHARGE PLAN: - Estimated Length of Stay (days) 17. - Consensus on plan Discharge plan has been discussed with primary caregiver. Patient/Family is in agreement with the clint n. Primary caregiver is in agreement with the plan. - Patient/Family Goals Return home with assistance. - Planned Living Setting Upon Discharge Home, to live with Family/Relatives. CONCLUSION ON REHABILITATION NECESSITY: I have evaluated patient's pre-admission functional status and, comparing it to the patient's post-ad mission functional status now, I conclude that the pre-admission assessment was accurate. Patient's c ondition on admission supports the medical necessity of admission to IR[facility]. It is safe to proceed with patient's therapy program. SIGNATURE PANEL: (CDT)
[2019-03-23 03:38] LABS: Hematocrit 29.5 % (36.0-45.0)
[2019-03-23] MEDS: carvediloL 25 MG TAB PO SCH ×2 (05:13→17:45)
[2019-03-23] MEDS: FERROUS SULFATE 325 MG TAB PO SCH (08:48)
[2019-03-23] MEDS: VITAMIN D 1000 UNIT TAB PO SCH (08:48)
[2019-03-23] MEDS: predniSONE 10 MG TAB PO SCH (08:48)
[2019-03-23] MEDS: FE SULF/FA/VIT B COMP & C TAB PO SCH (08:48)
[2019-03-23] MEDS: CLOPIDOGREL 75 MG TABLET PO SCH (08:48)
[2019-03-23] MEDS: HYDROCORTISONE 1% OINTMENT TOP SCH ×2 (08:49→20:00)
[2019-03-23] MEDS: ISOSORBIDE MONO SR 30 MG TAB PO SCH (08:50)
[2019-03-23] MEDS: ASPIRIN 81 MG CHEWABLE TABLET PO SCH (08:50)
[2019-03-23] MEDS: PROMOD 30 ML DOSE PO SCH ×2 (08:51→20:54)
--- NOTE | 2019-03-23 12:36 | FAST ---
ENCOUNTER DATE AND TIME: 03/23/2019 08:00 (CDT) NAME NELSON MYERS DATE OF : 1935 DATE OF ADMISSION: 03/21/2019 17:38 (CDT) PHONE: AGE: 83 N# [id number] GENDER: Female ENCOUNTER PHYSICIAN: Dr. Milton Torres M.D. ADMISSION DIAGNOSIS: - Stroke 01 - Left Body (Right Brain) (01.1) L BANKING CONSULTANT occlusion. EATING: EATING - STEP 1: Does the patient complete the activity by him/herself with no assistance (physical, verbal/nonverbal cueing, setup/clean-up)? Yes. 1. [id number] ADMISSION PERFORMANCE: Independent CODE: 06 ORAL HYGIENE: ORAL HYGIENE - STEP 1: Does the patient complete the activity by him/herself with no assistance (physical, verbal/nonverbal cueing, setup/clean-up)? Yes. 1. [id number] ADMISSION PERFORMANCE: Independent CODE: 06 TOILETING HYGIENE: Not assessed/no information CODE: - BATHING: SHOWER/BATHE SELF - STEP 1: Does the patient complete the activity by him/herself with no assistance (physical, verbal/nonverbal cueing, setup/clean-up)? No. SHOWER/BATHE SELF - STEP 2: Does the patient need only setup/clean-up assistance from one helper? No. SHOWER/BATHE SELF - STEP 3: Does the patient need only verbal/nonverbal cueing or touching/steadying/contact guard assistance fro m one helper? No. SHOWER/BATHE SELF - STEP 4: Does the patient need physical assistance - for example lifting or trunk support from one helper - wi th the helper providing less than half of the effort? Yes. 1. [id number] ADMISSION PERFORMANCE: Partial/moderate assistance CODE: 03 DRESSING - UPPER BODY: DRESSING - UPPER BODY - STEP 1: Does the patient complete the activity by him/herself with no assistance (physical, verbal/nonverbal cueing, setup/clean-up)? No. DRESSING - UPPER BODY - STEP 2: Does the patient need only setup/clean-up assistance from one helper? Yes. 1. [id number] ADMISSION PERFORMANCE: Setup or clean-up assistance CODE: 05 DRESSING - LOWER BODY: DRESSING - LOWER BODY - STEP 1: Does the patient complete the activity by him/herself with no assistance (physical, verbal/nonverbal cueing, setup/clean-up)? No. DRESSING - LOWER BODY - STEP 2: Does the patient need only setup/clean-up assistance from one helper? No. DRESSING - LOWER BODY - STEP 3: Does the patient need only verbal/nonverbal cueing or touching/steadying/contact guard assistance fro m one helper? No. DRESSING - LOWER BODY - STEP 4: Does the patient need physical assistance - for example lifting or trunk support from one helper - wi th the helper providing less than half of the effort? Yes. 1. [id number] ADMISSION PERFORMANCE: Partial/moderate assistance CODE: 03 PUTTING ON/TAKING OFF FOOTWEAR: FOOTWEAR - STEP 1: Does the patient complete the activity by him/herself with no assistance (physical, verbal/nonverbal cueing, setup/clean-up)? No. FOOTWEAR - STEP 2: Does the patient need only setup/clean-up assistance from one helper? No. FOOTWEAR - STEP 3: Does the patient need only verbal/nonverbal cueing or touching/steadying/contact guard assistance fro m one helper? No. FOOTWEAR - STEP 4: Does the patient need physical assistance - for example lifting or trunk support from one helper - wi th the helper providing less than half of the effort? No. FOOTWEAR - STEP 5: Does the patient need physical assistance - for example lifting or trunk support from one helper - wi th the helper providing more than half of the effort? No. FOOTWEAR - STEP 6: Does the helper provide all of the effort? OR Is the assistance of two or more helpers required to co mplete the activity? Yes. 1. [id number] ADMISSION PERFORMANCE: Dependent CODE: 01 DOES THE PATIENT USE A WHEELCHAIR/SCOOTER? CODE: EXPR INDICATE THE TYPE OF WHEELCHAIR/SCOOTER USED: CODE: EXPR INDICATE THE TYPE OF WHEELCHAIR/SCOOTER USED: CODE: EXPR BLADDER AND BOWEL: CODE: EXPR CODE: EXPR SIGNATURE PANEL: The following modified sections: 1. [id number] Admission Performance, 1. [id number] Admission Performance, 1. [id number] Admission Performance, 1. [id number] Admission Performance, 1. [id number] Admission Performance, 1. [id number] Admission Performance were [electronically] signed by Winifred Angulo OT on ThuMar 23 12:36:04 GMT-0500 (Central Daylight Time)
[2019-03-23] MEDS: CYANOCOBALAMIN 1,000 MCG TAB PO SCH (12:48)
[2019-03-23] MEDS: MAGNESIUM OXIDE 400 MG TAB PO SCH ×2 (12:48→20:53)
[2019-03-23] MEDS: VITAMIN A PO SCH (12:49)
--- NOTE | 2019-03-23 18:47 | R.PN ---
ENCOUNTER DATE AND TIME: 03/23/2019 18:41 (CDT) NAME NELSON MYERS DATE OF : 1935 DATE OF ADMISSION: 03/21/2019 17:38 (CDT) L BODY SERVICE TEAM MEMBER occlusionCHIEF COMPLAINT: Left posterior cerebral artery occlusion. SUBJECTIVE: Pt denied any Shortness of Breath. Pt denied any depression. Labs reviewed and are stable. She is feeling more energetic today after 2 units of blood yesterday. Shes is making fair progress with physical and occupational therapy. VITAL SIGNS Temperature: 97.5 F SBP/DBP: 135/74 Pulse: 68 Resp: 16 MEDICATION ALLERGIES: No Known Drug Allergies (NKDA) ENVIRONMENTAL ALLERGIES: - Substance Allergies None Known - Other Allergies None Known NURSING: - Shower allowing shower - Bladder care per protocol - Skin care per protocol PRECAUTIONS: - Weight Bearing Precaution WBAT left LE ACTIVITIES OOB only with supervision THERAPIES: - Occupational Therapy Cognitive Retraining. Visual Perceptual Training. - Dietary and Nutrition Adequate Nutrition. Nutritional Education. Nutritional Supplements. - Speech Therapy Cognitive Training. Expressive Language Skills. Memory Strategies. Receptive Language Skills. Speech Intelligibility Training. PHYSICAL EXAM - Gen Alert and awake Lying in bed No apparent distress Oriented to: person, time, and place - Skin Allergic rash and edema of the the legs No abnormalities - Eyes No abnormalities - ENMT No abnormalities - Neck No abnormalities - CVS RRR - Chest No abnormalities - Resp Clear to auscultation - Abd + bowel sounds - GI nondistended Deferred - No abnormalities - Ext Mild to moderate bilateral lower extremity edema. - MSK 4+/5 weakness in left lower extremity - Neuro 4/5 strength left lower extremity. - Psych No abnormalities ASSESSMENT: Pt. is a 83 yo Right-handed white female.On 03/10/2019 Pt. presented to [facility] with sudden o nset of left-side weakness.On 03/10/2019 she was admitted to [facility] with diagnosis L BODY SERVICE TEAM MEMBER occ lusion.Her impairment category is Stroke 01 - Left Body (Right Brain) (01.1).Pre-morbidly, Pt. was i ndependent/mod-I in Self-Care, Sphincter Control, Transfers Control, Locomotion, Communication, and S ocial Cognition; and she had good Sphincter Control.Currently, she has deficits of Self-Care, Transfe rs Control, Locomotion, Communication, Social Cognition, Endurance, Balance, and Safety Awareness.Pt. is now referred to [facility] for acute in-patient rehabilitation in order to maximize patient's functional independence in activities of daily living, strength, ROM, and mobilit y.- Rehab Goal Patient has realistic goal of being discharged at assistance level 6-Jakob to reside at Home with Fam christina/Relatives. MDM/PLAN: - Physical Therapy Gait dysfunction - to improve, our physical therapists will perform initial evaluation of pt's statu s upon admission and devise an individualized program for Gait Training, and Wheel Chair mobility Inability to transfer - to improve, our physical therapists will perform initial evaluation of pt's status upon admission and devise an individualized program for Bed mobility Need for home safety evaluation - to improve, our physical therapists will perform initial evaluatio n of pt's status upon admission and devise an individualized program for Home Evaluation Need in caregiver upon discharge - to improve, our physical therapists will perform initial evaluati on of pt's status upon admission and devise an individualized program for Caregiver Training Edema - to improve, our physical therapists will perform initial evaluation of pt's status upon admis mal and devise an individualized program for Elevation Training, and Lymphedema Therapy New precaution - to improve, our physical therapists will perform initial evaluation of pt's status upon admission and devise an individualized program for Patient precaution education Poor balance - to improve, our physical therapists will perform initial evaluation of pt's status up on admission and devise an individualized program for Balance Training Poor endurance - to improve, our physical therapists will perform initial evaluation of pt's status upon admission and devise an individualized program for Endurance Training Weakness - to improve, our physical therapists will perform initial evaluation of pt's status upon a dmission and devise an individualized program for Aquatic Therapy, Neuromuscular Reeducation, and Str engthening Achieving independence - to improve, our physical therapists will perform initial evaluation of pt's status upon admission and devise an individualized program for Community Reintegration Activities - Occupational Therapy ADL deficits - to improve, our occupation therapists will perform initial evaluation of pt's status upon admission and devise an individualized program for Bathing, Bed mobility, Community Reintegratio n, Cooking, Dressing, Eating, Fine Motor Skills, Grooming, Homemaking, Kitchen Mobility, Laundry, Pat ient Education, Safety Awareness, Splinting - Positioning, Transfers(Toilet, Tub, Shower), and Wheel Chair Management Cognitive deficits - to improve, our occupation therapists will perform initial evaluation of pt's s tatus upon admission and devise an individualized program for Cognition - orientation Need for child day care teacher - to improve, our occupation therapists will perform initial evaluation of pt's status upon admission and devise an individualized program for Caregiver Training Weakness - to improve, our occupation therapists will perform initial evaluation of pt's status upon admission and devise an individualized program for Aquatic Therapy, Balance, Endurance, UE ROM, and UE strengthening - Other See attached MAR (Medication Administration Record) - Diet Type Continue Regular - Diet - Liquid Texture Continue Regular - Tube Feed Continue N/A - Bladder care per protocol - Weight Bearing Precaution WBAT left LE - Skin care per protocol - Diet - Solid Texture Continue Regular - Shower allowing shower for Dementia, TBI, Stroke, or others FUNCTIONAL STATUS: UPDATED AT WEEKLY TEAM CONFERENCE - Bladder Same accident frequency: 7-Ind - No accidents in the past 7 days - Bowel Same accident frequency: 7-Ind - No accidents in the past 7 days - Walking Same score based on distance walked: 1(<=50ft) - Wheelchair Same score based on distance traveled: 1(<=50ft) FUNCTIONAL STATUS: - Self-Care A. Eating sup B. Grooming sup C. Bathing modA D. Dressing - Upper sup E. Dressing - Lower maxA F. Toileting modA - Sphincter Control G: Bladder control Ind H: Bowel control Ind - Transfers Control I. Bed/Chair/Wheelchair CGA J. Toilet CGA K. Tub/Shower Joaquim - Locomotion L. Walk/Wheelchair (C) maxA L. Walk/Wheelchair (W) ADNO M. Stairs ADNO - Communication N. Comprehension (B) sup O. Expression (B) sup - Social Cognition P. Social Interaction sup Q. Problem Solving sup R. Memory sup - Endurance Poor - Balance Poor - Safety Awareness Fair QI SCORES: - Self-Care A. Eating 05-Setup or clean-up assistance B. Oral hygiene 05-Setup or clean-up assistance C. Toileting hygiene 05-Setup or clean-up assistance E. Shower/bathe self 03-Partial/moderate assistance F. Upper body dressing 05-Setup or clean-up assistance G. Lower body dressing 04-Supervision or touching assistance H. Putting on/taking off footwear 88-Not attempted due to medical condition or safety concerns - Mobility A. Roll left and right 04-Supervision or touching assistance B. Sit to lying 04-Supervision or touching assistance C. Lying to sitting on side of bed 04-Supervision or touching assistance D. Sit to stand 03-Partial/moderate assistance E. Chair/[id number] transfer 05-Setup or clean-up assistance F. Toilet transfer 05-Setup or clean-up assistance G. Car transfer 88-Not attempted due to medical condition or safety concerns I. Walk 10 feet 03-Partial/moderate assistance J. Walk 50 feet with two turns 88-Not attempted due to medical condition or safety concerns K. Walk 150 feet 88-Not attempted due to medical condition or safety concerns L. Walking 10 feet on uneven surfaces 88-Not attempted due to medical condition or safety concerns M. 1 step (curb) 88-Not attempted due to medical condition or safety concerns N. 4 steps 88-Not attempted due to medical condition or safety concerns O. 12 steps 88-Not attempted due to medical condition or safety concerns P. Picking up object 88-Not attempted due to medical condition or safety concerns R. Wheel 50 feet with two turns 88-Not attempted due to medical condition or safety concerns S. Wheel 150 feet 88-Not attempted due to medical condition or safety concerns - Bladder and Bowel Bladder continence 0-Always continent Bowel continence 0-Always continent CURRENT FUNC. DEFICITS: Self-Care, Transfers Control, Locomotion, Communication, Social Cognition, Endurance, Balance, and Sa fety Awareness SIGNATURE PANEL: (CDT)
[2019-03-23] MEDS: ATORVASTATIN 80 MG TAB PO SCH (20:53)
[2019-03-23] MEDS: ACETAMINOPHEN 500 MG TAB PO PRN (20:54)
[2019-03-24] MEDS: carvediloL 25 MG TAB PO SCH ×2 (05:04→17:32)
[2019-03-24] MEDS: HYDROCORTISONE 1% OINTMENT TOP SCH ×2 (06:31→20:05)
[2019-03-24] MEDS: CLOPIDOGREL 75 MG TABLET PO SCH (08:42)
[2019-03-24] MEDS: CYANOCOBALAMIN 1,000 MCG TAB PO SCH (08:42)
[2019-03-24] MEDS: VITAMIN D 1000 UNIT TAB PO SCH (08:42)
[2019-03-24] MEDS: VITAMIN A PO SCH (08:42)
[2019-03-24] MEDS: FE SULF/FA/VIT B COMP & C TAB PO SCH (08:43)
[2019-03-24] MEDS: MAGNESIUM OXIDE 400 MG TAB PO SCH ×2 (08:43→20:05)
[2019-03-24] MEDS: FERROUS SULFATE 325 MG TAB PO SCH (08:43)
[2019-03-24] MEDS: ISOSORBIDE MONO SR 30 MG TAB PO SCH (08:44)
[2019-03-24] MEDS: predniSONE 10 MG TAB PO SCH (08:44)
[2019-03-24] MEDS: PROMOD 30 ML DOSE PO SCH ×2 (08:45→20:05)
[2019-03-24] MEDS: ASPIRIN 81 MG CHEWABLE TABLET PO SCH (08:45)
[2019-03-24] MEDS: ATORVASTATIN 80 MG TAB PO SCH (20:05)
[2019-03-25] MEDS: DIPHENHYDRAMINE 25 MG TAB/CAP PO PRN (01:52)
[2019-03-25] MEDS: carvediloL 25 MG TAB PO SCH ×2 (04:58→16:54)
[2019-03-25 06:31] LABS: Absolute Lymphocytes (CBC) 0.6 K/uL (0.7-4.9); Basophils % 0.8 % (0-1.3); Hematocrit 29.3 % (36.0-45.0); Lymphocytes % 21.9 % (15.3-44.8); MPV 8.8 fL (7.6-11.3); RBC Red Blood Cell Count 3.31 M/uL (3.86-4.86)
[2019-03-25 06:43] LABS: Magnesium 2.7 mg/dL (1.8-2.4); Potassium 4.4 mmol/L (3.5-5.1); Prealbumin 7.2 mg/dL (20-40)
[2019-03-25] MEDS: VITAMIN A PO SCH (07:47)
[2019-03-25] MEDS: ASPIRIN 81 MG CHEWABLE TABLET PO SCH (07:48)
[2019-03-25] MEDS: ISOSORBIDE MONO SR 30 MG TAB PO SCH (07:48)
[2019-03-25] MEDS: predniSONE 10 MG TAB PO SCH (07:48)
[2019-03-25] MEDS: CYANOCOBALAMIN 1,000 MCG TAB PO SCH (07:48)
[2019-03-25] MEDS: VITAMIN D 1000 UNIT TAB PO SCH (07:48)
[2019-03-25] MEDS: CLOPIDOGREL 75 MG TABLET PO SCH (07:48)
[2019-03-25] MEDS: PROMOD 30 ML DOSE PO SCH ×2 (07:48→20:16)
[2019-03-25] MEDS: FE SULF/FA/VIT B COMP & C TAB PO SCH (07:48)
[2019-03-25] MEDS: FERROUS SULFATE 325 MG TAB PO SCH (07:49)
[2019-03-25] MEDS: ACETAMINOPHEN 500 MG TAB PO PRN (07:49)
[2019-03-25] MEDS: MAGNESIUM OXIDE 400 MG TAB PO SCH ×2 (07:50→20:00)
--- NOTE | 2019-03-25 09:35 | P.RH.PN ---
Estimated Length of Stay: 16 Expected Discharge Date: 04/05/19 Discharge Disposition Plan: Home Family Support: Yes [facility] Goal: Mobility, Transfers, Self Care Vital Signs: Last Vital Signs Temp 97.6 F 03/24/19 19:50 Pulse 79 03/25/19 04:58 Resp 16 03/24/19 19:50 BP 114/80 03/25/19 04:58 Pulse Ox 99 03/24/19 19:50 Laboratory: Laboratory Last Values WBC 3.0 K/uL (4.3-10.9) L 03/25/19 06:14 RBC 3.31 M/uL (3.86-4.86) L D 03/25/19 06:14 Hgb 10.3 g/dL (12.0-15.0) L 03/25/19 06:14 Hct 29.3 % (36.0-45.0) L 03/25/19 06:14 MCV 88.4 fL (80-100) 03/25/19 06:14 MCH 31.0 pg (27.0-35.0) 03/25/19 06:14 MCHC 35.1 g/dL (32.0-36.0) 03/25/19 06:14 RDW 16.4 % (12.1-15.2) H 03/25/19 06:14 Plt Count 77 K/uL (152-406) L 03/25/19 06:14 MPV 8.8 fL (7.6-11.3) 03/25/19 06:14 Neutrophils % 59.0 % (41.7-73.7) 03/25/19 06:14 Lymphocytes % 21.9 % (15.3-44.8) 03/25/19 06:14 Monocytes % 12.5 % (3.3-12.3) H 03/25/19 06:14 Eosinophils % 5.8 % (0-4.4) H 03/25/19 06:14 Basophils % 0.8 % (0-1.3) 03/25/19 06:14 Absolute Neutrophils 1.7 K/uL (1.8-8.0) L 03/25/19 06:14 Segmented Neutrophils 65 % (40-80) 03/22/19 05:59 Absolute Lymphocytes 0.6 K/uL (0.7-4.9) L 03/25/19 06:14 Lymphocytes 20 % (15-42) 03/22/19 05:59 Monocytes 8 % (0-10) 03/22/19 05:59 Absolute Monocytes 0.4 K/uL (0.1-1.3) 03/25/19 06:14 Eosinophils 6 % (0-3) H 03/22/19 05:59 Absolute Eosinophils 0.2 K/uL (0-0.5) 03/25/19 06:14 Absolute Basophils 0.0 K/uL (0-0.5) 03/25/19 06:14 Atypical Lymphocytes 1 03/22/19 05:59 Hypochromasia 1+ 03/22/19 05:59 Anisocytosis 1+ 03/22/19 05:59 Ovalocytes 1+ 03/22/19 05:59 Morphology Comment Noted (NOT SEEN) 03/22/19 05:59 Sodium 141 mmol/L (136-145) 03/25/19 06:14 Potassium 4.4 mmol/L (3.5-5.1) 03/25/19 06:14 Chloride 112 mmol/L (98-107) H 03/25/19 06:14 Carbon Dioxide 24 mmol/L (21-32) 03/25/19 06:14 BUN 36 mg/dL (7-18) H 03/25/19 06:14 Creatinine 1.11 mg/dL (0.55-1.3) 03/25/19 06:14 Estimated GFR 47 mL/min (=/>90) L 03/25/19 06:14 Glucose 98 mg/dL (74-106) 03/25/19 06:14 Calcium 7.9 mg/dL (8.5-10.1) L 03/25/19 06:14 Magnesium 2.7 mg/dL (1.8-2.4) H 03/25/19 06:14 Albumin 2.0 g/dL (3.4-5.0) L 03/25/19 06:14 Prealbumin 7.2 mg/dL (20-40) L 03/25/19 06:14 Urine Color Dk yellow 03/22/19 18:19 Urine Appearance Clear 03/22/19 18:19 Urine pH 5.5 (5.0-7.0) 03/22/19 18:19 Ur Specific [place] 1.015 (1.005-1.030) 03/22/19 18:19 Urine Ketones Negative (NEG) 03/22/19 18:19 Urine Blood Trace (NEG) H 03/22/19 18:19 Urine Nitrite Negative (NEG) 03/22/19 18:19 Urine Bilirubin Negative (NEG) 03/22/19 18:19 Urine Urobilinogen 0.2 mg/dL (0.2-1.0) 03/22/19 18:19 Ur Leukocyte Esterase 1+ (NEG) H 03/22/19 18:19 Urine RBC 5-10 /HPF (NONE SEEN) H 03/22/19 18:19 Urine WBC 5-10 /HPF (<5) H 03/22/19 18:19 Ur Squamous Epith Cells 5-10 /HPF (NONE SEEN) H 03/22/19 18:19 Amorphous Sediment 3+ /HPF (NONE SEEN) H 03/22/19 18:19 Urine Bacteria >50 /HPF (<20) H 03/22/19 18:19 Hyaline Casts 5-10 /LPF (NONE SEEN) 03/22/19 18:19 Urine Mucus 3+ /HPF (NONE SEEN) H 03/22/19 18:19 Urine Culture Reflexed Reflexed 03/22/19 18:19 Urine Glucose Negative (NEG) 03/22/19 18:19 Urine Total Protein Negative (NEG) 03/22/19 18:19 ABO/Rh O NEGATIVE 03/22/19 08:19 Antibody Screen Negative 03/22/19 08:19 Crossmatch See Detail 03/22/19 08:19 Weight: 138 lb 6.4 oz Wound Present: No Closed Surgical Incision Present: No Negative Pressure Wound Therapy Present: No Physician Update: She is doing fair with ADLs she requires supervision. She has a UTI with pseudomonas sensitive to Levaquin. Minimum assistance for toileting. Her systemic allergic reaction is slightly better. She is walking 250' and up and down 15 stairs with standby assistance. Medical Issues: Patient is incontinent less than daily with bladder and always continent with bowel. Functional Improvement Occupational Therapy: Pt making good physical gains with improving activity tolerance. Cooperative and motivated to participate. Pt does require encouragement and assist with problem solving and attention. Need to further assess safety with functional tasks. Pt continues to require physical assist with Bathing and footware. Summary: Patient's care plan and senior care goals have been reviewed and revised as necessary. Please see the Rehabilitation Signature page for all necessary signatures.
[2019-03-25] MEDS: HYDROCORTISONE 1% OINTMENT TOP SCH ×2 (10:30→20:15)
[2019-03-25] MEDS: CRANBERRY FRUIT EXTRACT 200 MG CAP PO SCH ×2 (12:28→20:15)
--- NOTE | 2019-03-25 14:29 | FAST ---
ENCOUNTER DATE AND TIME: 03/25/2019 08:00 (CDT) NAME NELSON MYERS DATE OF : 1935 DATE OF ADMISSION: 03/21/2019 17:38 (CDT) PHONE: AGE: 83 N# [id number] GENDER: Female ENCOUNTER PHYSICIAN: Dr. Milton Torres M.D. 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 EATING: Not assessed/no information CODE: - ORAL HYGIENE: Not assessed/no information CODE: - TOILETING HYGIENE: TOILETING HYGIENE - STEP 1: Does the patient complete the activity by him/herself with no assistance (physical, verbal/nonverbal cueing, setup/clean-up)? No. TOILETING HYGIENE - STEP 2: Does the patient need only setup/clean-up assistance from one helper? No. TOILETING HYGIENE - STEP 3: Does the patient need only verbal/nonverbal cueing or touching/steadying/contact guard assistance fro m one helper? No. TOILETING HYGIENE - STEP 4: Does the patient need physical assistance - for example lifting or trunk support from one helper - wi th the helper providing less than half of the effort? No. TOILETING HYGIENE - STEP 5: Does the patient need physical assistance - for example lifting or trunk support from one helper - wi th the helper providing more than half of the effort? Yes. 1. [id number] ADMISSION PERFORMANCE: Substantial/maximal assistance CODE: 02 BATHING: SHOWER/BATHE SELF - STEP 1: Does the patient complete the activity by him/herself with no assistance (physical, verbal/nonverbal cueing, setup/clean-up)? No. SHOWER/BATHE SELF - STEP 2: Does the patient need only setup/clean-up assistance from one helper? No. SHOWER/BATHE SELF - STEP 3: Does the patient need only verbal/nonverbal cueing or touching/steadying/contact guard assistance fro m one helper? No. SHOWER/BATHE SELF - STEP 4: Does the patient need physical assistance - for example lifting or trunk support from one helper - wi th the helper providing less than half of the effort? Yes. 1. [id number] ADMISSION PERFORMANCE: Partial/moderate assistance CODE: 03 DRESSING - UPPER BODY: DRESSING - UPPER BODY - STEP 1: Does the patient complete the activity by him/herself with no assistance (physical, verbal/nonverbal cueing, setup/clean-up)? No. DRESSING - UPPER BODY - STEP 2: Does the patient need only setup/clean-up assistance from one helper? Yes. 1. [id number] ADMISSION PERFORMANCE: Setup or clean-up assistance CODE: 05 DRESSING - LOWER BODY: DRESSING - LOWER BODY - STEP 1: Does the patient complete the activity by him/herself with no assistance (physical, verbal/nonverbal cueing, setup/clean-up)? No. DRESSING - LOWER BODY - STEP 2: Does the patient need only setup/clean-up assistance from one helper? No. DRESSING - LOWER BODY - STEP 3: Does the patient need only verbal/nonverbal cueing or touching/steadying/contact guard assistance fro m one helper? No. DRESSING - LOWER BODY - STEP 4: Does the patient need physical assistance - for example lifting or trunk support from one helper - wi th the helper providing less than half of the effort? Yes. 1. [id number] ADMISSION PERFORMANCE: Partial/moderate assistance CODE: 03 PUTTING ON/TAKING OFF FOOTWEAR: FOOTWEAR - STEP 1: Does the patient complete the activity by him/herself with no assistance (physical, verbal/nonverbal cueing, setup/clean-up)? No. FOOTWEAR - STEP 2: Does the patient need only setup/clean-up assistance from one helper? No. FOOTWEAR - STEP 3: Does the patient need only verbal/nonverbal cueing or touching/steadying/contact guard assistance fro m one helper? No. FOOTWEAR - STEP 4: Does the patient need physical assistance - for example lifting or trunk support from one helper - wi th the helper providing less than half of the effort? No. FOOTWEAR - STEP 5: Does the patient need physical assistance - for example lifting or trunk support from one helper - wi th the helper providing more than half of the effort? Yes. 1. [id number] ADMISSION PERFORMANCE: Substantial/maximal assistance CODE: 02 DOES THE PATIENT USE A WHEELCHAIR/SCOOTER? CODE: EXPR INDICATE THE TYPE OF WHEELCHAIR/SCOOTER USED: CODE: EXPR INDICATE THE TYPE OF WHEELCHAIR/SCOOTER USED: CODE: EXPR BLADDER AND BOWEL: CODE: EXPR CODE: EXPR SIGNATURE PANEL: The following modified sections: 1. [id number] Admission Performance, 1. [id number] Admission Performance, 1. [id number] Admission Performance, 1. [id number] Admission Performance, 1. [id number] Admission Performance were [electronically] signed by Edith Watts OT on ThuMar 25 2019 14:29:01 GMT-0500 ([facility] tra Daylight Time)
--- NOTE | 2019-03-25 15:43 | RAD REPORT ---
EXAM DESCRIPTION: RAD - Chest Single View - 03/25/2019 3:34 pm CLINICAL HISTORY: Wheezing Chest pain. COMPARISON: Chest Single View dated 06/18/2018 FINDINGS: Portable technique limits examination quality. Mild interstitial pulmonary edema. The heart is moderately enlarged in size. No displaced fractures.S ternotomy wires present. IMPRESSION: Mild CHF.
[2019-03-25] MEDS ORDERED: FUROSEMIDE 20 MG TABLET PO ONE (16:19)
[2019-03-25] MEDS: ATORVASTATIN 80 MG TAB PO SCH (20:15)
[2019-03-26] MEDS: carvediloL 25 MG TAB PO SCH ×2 (05:16→17:03)
[2019-03-26 05:55] VITALS: BMI 26.4
[2019-03-26] MEDS ORDERED: levoFLOXacin 500 MG TAB PO SCH (06:30)
[2019-03-26] MEDS: VITAMIN A PO SCH (08:52)
[2019-03-26] MEDS: HYDROCORTISONE 1% OINTMENT TOP SCH ×2 (08:52→20:01)
[2019-03-26] MEDS: levoFLOXacin 500 MG TAB PO SCH (08:53)
[2019-03-26] MEDS: CRANBERRY FRUIT EXTRACT 200 MG CAP PO SCH ×2 (08:53→20:01)
[2019-03-26] MEDS: FE SULF/FA/VIT B COMP & C TAB PO SCH (08:53)
[2019-03-26] MEDS: CLOPIDOGREL 75 MG TABLET PO SCH (08:53)
[2019-03-26] MEDS: FERROUS SULFATE 325 MG TAB PO SCH (08:54)
[2019-03-26] MEDS: predniSONE 10 MG TAB PO SCH (08:54)
[2019-03-26] MEDS: ISOSORBIDE MONO SR 30 MG TAB PO SCH (08:54)
[2019-03-26] MEDS: ACETAMINOPHEN 500 MG TAB PO PRN (08:54)
[2019-03-26] MEDS: CYANOCOBALAMIN 1,000 MCG TAB PO SCH (08:54)
[2019-03-26] MEDS: VITAMIN D 1000 UNIT TAB PO SCH (08:55)
[2019-03-26] MEDS: FUROSEMIDE 20 MG TABLET PO SCH (08:55)
[2019-03-26] MEDS: ASPIRIN 81 MG CHEWABLE TABLET PO SCH (08:55)
[2019-03-26] MEDS: PROMOD 30 ML DOSE PO SCH ×2 (08:56→20:01)
[2019-03-26] MEDS: MAGNESIUM OXIDE 400 MG TAB PO SCH ×2 (08:56→20:01)
--- NOTE | 2019-03-26 09:52 | FAST ---
SHIFT START DATE/TIME: 03/26/2019 07:00 (CDT) SHIFT END DATE/TIME: 03/26/2019 19:00 (CDT) NAME NELSON MYERS DATE OF : 1935 DATE OF ADMISSION: 03/21/2019 17:38 (CDT) PHONE: AGE: 83 N# [id number] GENDER: Female ENCOUNTER PHYSICIAN: Dr. Milton Torres M.D. 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 EATING: EATING - STEP 1: Does the patient complete the activity by him/herself with no assistance (physical, verbal/nonverbal cueing, setup/clean-up)? No. EATING - STEP 2: Does the patient need only setup/clean-up assistance from one helper? Yes. 1. [id number] ADMISSION PERFORMANCE: Setup or clean-up assistance CODE: 05 ORAL HYGIENE: ORAL HYGIENE - STEP 1: Does the patient complete the activity by him/herself with no assistance (physical, verbal/nonverbal cueing, setup/clean-up)? No. ORAL HYGIENE - STEP 2: Does the patient need only setup/clean-up assistance from one helper? Yes. 1. [id number] ADMISSION PERFORMANCE: Setup or clean-up assistance CODE: 05 TOILETING HYGIENE: TOILETING HYGIENE - STEP 1: Does the patient complete the activity by him/herself with no assistance (physical, verbal/nonverbal cueing, setup/clean-up)? No. TOILETING HYGIENE - STEP 2: Does the patient need only setup/clean-up assistance from one helper? Yes. 1. [id number] ADMISSION PERFORMANCE: Setup or clean-up assistance CODE: 05 BATHING: Not assessed/no information CODE: - DRESSING - UPPER BODY: Not assessed/no information CODE: - DRESSING - LOWER BODY: Not assessed/no information CODE: - PUTTING ON/TAKING OFF FOOTWEAR: Not assessed/no information CODE: - ROLL LEFT AND RIGHT: Not assessed/no information CODE: - SIT TO LYING: Not assessed/no information CODE: - LYING TO SITTING: Not assessed/no information CODE: - SIT TO STAND: Not assessed/no information CODE: - TRANSFERS: BED, CHAIR: Not assessed/no information CODE: - TRANSFER TOILET: Not assessed/no information CODE: - TRANSFERS: CAR: Not assessed/no information CODE: - WALK 10 FEET: Not assessed/no information CODE: - 1 STEP (CURB): Not assessed/no information CODE: - PICKING UP OBJECT: Not assessed/no information CODE: - DOES THE PATIENT USE A WHEELCHAIR/SCOOTER? CODE: EXPR WHEEL 50 FEET WITH TWO TURNS: Not assessed/no information CODE: - INDICATE THE TYPE OF WHEELCHAIR/SCOOTER USED: CODE: EXPR WHEEL 150 FEET: Not assessed/no information CODE: - INDICATE THE TYPE OF WHEELCHAIR/SCOOTER USED: CODE: EXPR BLADDER AND BOWEL: H350. BLADDER CONTINENCE (3-DAY ASSESSMENT PERIOD): Always continent (no documented incontinence) CODE: 0 H400. BOWEL CONTINENCE (3-DAY ASSESSMENT PERIOD): Always continent CODE: 0 SIGNATURE PANEL: The following modified sections: 1. [id number] Admission Performance, 1. [id number] Admission Performance, 1. [id number] Admission Performance, Code, H350. Bladder Continence (3-day assessment period), H400. [place] Continence (3-day assessment period) were [electronically] signed by Anibal Cervantes on Sat Mar 26 2019 09:51:31 GMT-0500 (Central Daylight Time)
[2019-03-26] MEDS: ATORVASTATIN 80 MG TAB PO SCH (20:01)
[2019-03-27] MEDS: carvediloL 25 MG TAB PO SCH ×2 (04:55→16:42)
[2019-03-27] MEDS: PROMOD 30 ML DOSE PO SCH ×2 (07:48→19:06)
[2019-03-27] MEDS: FE SULF/FA/VIT B COMP & C TAB PO SCH (07:49)
[2019-03-27] MEDS: levoFLOXacin 500 MG TAB PO SCH (07:49)
[2019-03-27] MEDS: VITAMIN A PO SCH (07:49)
[2019-03-27] MEDS: FERROUS SULFATE 325 MG TAB PO SCH (07:49)
[2019-03-27] MEDS: HYDROCORTISONE 1% OINTMENT TOP SCH ×2 (07:49→19:07)
[2019-03-27] MEDS: MAGNESIUM OXIDE 400 MG TAB PO SCH ×2 (07:50→19:06)
[2019-03-27] MEDS: ISOSORBIDE MONO SR 30 MG TAB PO SCH (07:50)
[2019-03-27] MEDS: CLOPIDOGREL 75 MG TABLET PO SCH (07:50)
[2019-03-27] MEDS: predniSONE 10 MG TAB PO SCH (07:50)
[2019-03-27] MEDS: FUROSEMIDE 20 MG TABLET PO SCH (07:50)
[2019-03-27] MEDS: CRANBERRY FRUIT EXTRACT 200 MG CAP PO SCH ×2 (07:50→19:06)
[2019-03-27] MEDS: VITAMIN D 1000 UNIT TAB PO SCH (07:50)
[2019-03-27] MEDS: CYANOCOBALAMIN 1,000 MCG TAB PO SCH (07:51)
[2019-03-27] MEDS: ASPIRIN 81 MG CHEWABLE TABLET PO SCH (07:51)
[2019-03-27] MEDS: ATORVASTATIN 80 MG TAB PO SCH (19:06)
[2019-03-28] MEDS: carvediloL 25 MG TAB PO SCH ×2 (05:11→17:07)
[2019-03-28 06:49] LABS: Potassium 4.2 mmol/L (3.5-5.1)
[2019-03-28] MEDS: VITAMIN A PO SCH (07:52)
[2019-03-28] MEDS: levoFLOXacin 500 MG TAB PO SCH (07:52)
[2019-03-28] MEDS: MAGNESIUM OXIDE 400 MG TAB PO SCH ×2 (07:52→20:00)
[2019-03-28] MEDS: FE SULF/FA/VIT B COMP & C TAB PO SCH (07:52)
[2019-03-28] MEDS: CRANBERRY FRUIT EXTRACT 200 MG CAP PO SCH ×2 (07:52→20:11)
[2019-03-28] MEDS: FERROUS SULFATE 325 MG TAB PO SCH (07:52)
[2019-03-28] MEDS: ISOSORBIDE MONO SR 30 MG TAB PO SCH (07:53)
[2019-03-28] MEDS: VITAMIN D 1000 UNIT TAB PO SCH (07:53)
[2019-03-28] MEDS: FUROSEMIDE 20 MG TABLET PO SCH (07:53)
[2019-03-28] MEDS: PROMOD 30 ML DOSE PO SCH ×2 (07:54→20:11)
[2019-03-28] MEDS: ASPIRIN 81 MG CHEWABLE TABLET PO SCH (07:54)
[2019-03-28] MEDS: predniSONE 10 MG TAB PO SCH (07:54)
[2019-03-28] MEDS: CYANOCOBALAMIN 1,000 MCG TAB PO SCH (07:54)
[2019-03-28] MEDS: CLOPIDOGREL 75 MG TABLET PO SCH (07:54)
[2019-03-28] MEDS: HYDROCORTISONE 1% OINTMENT TOP SCH ×2 (10:15→20:11)
--- NOTE | 2019-03-28 13:42 | FAST ---
ENCOUNTER DATE AND TIME: 03/28/2019 08:00 (EVAPORATOR) NAME NELSON MYERS DATE OF : 1935 DATE OF ADMISSION: 03/21/2019 17:38 (CDT) PHONE: AGE: 83 N# [id number] GENDER: Female ENCOUNTER PHYSICIAN: Dr. Milton Torres M.D. 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 EATING: Not assessed/no information CODE: - ORAL HYGIENE: Not assessed/no information CODE: - TOILETING HYGIENE: Not assessed/no information CODE: - BATHING: SHOWER/BATHE SELF - STEP 1: Does the patient complete the activity by him/herself with no assistance (physical, verbal/nonverbal cueing, setup/clean-up)? No. SHOWER/BATHE SELF - STEP 2: Does the patient need only setup/clean-up assistance from one helper? No. SHOWER/BATHE SELF - STEP 3: Does the patient need only verbal/nonverbal cueing or touching/steadying/contact guard assistance fro m one helper? Yes. 1. [id number] ADMISSION PERFORMANCE: Supervision or touching assistance CODE: 04 DRESSING - UPPER BODY: DRESSING - UPPER BODY - STEP 1: Does the patient complete the activity by him/herself with no assistance (physical, verbal/nonverbal cueing, setup/clean-up)? No. DRESSING - UPPER BODY - STEP 2: Does the patient need only setup/clean-up assistance from one helper? Yes. 1. [id number] ADMISSION PERFORMANCE: Setup or clean-up assistance CODE: 05 DRESSING - LOWER BODY: DRESSING - LOWER BODY - STEP 1: Does the patient complete the activity by him/herself with no assistance (physical, verbal/nonverbal cueing, setup/clean-up)? No. DRESSING - LOWER BODY - STEP 2: Does the patient need only setup/clean-up assistance from one helper? No. DRESSING - LOWER BODY - STEP 3: Does the patient need only verbal/nonverbal cueing or touching/steadying/contact guard assistance fro m one helper? Yes. 1. [id number] ADMISSION PERFORMANCE: Supervision or touching assistance CODE: 04 PUTTING ON/TAKING OFF FOOTWEAR: FOOTWEAR - STEP 1: Does the patient complete the activity by him/herself with no assistance (physical, verbal/nonverbal cueing, setup/clean-up)? No. FOOTWEAR - STEP 2: Does the patient need only setup/clean-up assistance from one helper? No. FOOTWEAR - STEP 3: Does the patient need only verbal/nonverbal cueing or touching/steadying/contact guard assistance fro m one helper? Yes. 1. [id number] ADMISSION PERFORMANCE: Supervision or touching assistance CODE: 04 DOES THE PATIENT USE A WHEELCHAIR/SCOOTER? CODE: EXPR INDICATE THE TYPE OF WHEELCHAIR/SCOOTER USED: CODE: EXPR INDICATE THE TYPE OF WHEELCHAIR/SCOOTER USED: CODE: EXPR BLADDER AND BOWEL: CODE: EXPR CODE: EXPR SIGNATURE PANEL: The following modified sections: 1. [id number] Admission Performance, 1. [id number] Admission Performance, 1. [id number] Admission Performance, 1. [id number] Admission Performance were [electronically] signed by Brianda Watts OT on ThuMar 28 2019 13:41:53 GMT-0600 (Central Standard Time)
--- NOTE | 2019-03-28 14:03 | FAST ---
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 Milton Torres M.D. 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 EATING: EATING - STEP 1: Does the patient complete the activity by him/herself with no assistance (physical, verbal/nonverbal cueing, setup/clean-up)? No. EATING - STEP 2: Does the patient need only setup/clean-up assistance from one helper? Yes. 1. [id number] ADMISSION PERFORMANCE: Setup or clean-up assistance CODE: 05 ORAL HYGIENE: ORAL HYGIENE - STEP 1: Does the patient complete the activity by him/herself with no assistance (physical, verbal/nonverbal cueing, setup/clean-up)? No. ORAL HYGIENE - STEP 2: Does the patient need only setup/clean-up assistance from one helper? Yes. 1. [id number] ADMISSION PERFORMANCE: Setup or clean-up assistance CODE: 05 TOILETING HYGIENE: TOILETING HYGIENE - STEP 1: Does the patient complete the activity by him/herself with no assistance (physical, verbal/nonverbal cueing, setup/clean-up)? No. TOILETING HYGIENE - STEP 2: Does the patient need only setup/clean-up assistance from one helper? No. TOILETING HYGIENE - STEP 3: Does the patient need only verbal/nonverbal cueing or touching/steadying/contact guard assistance fro m one helper? Yes. 1. [id number] ADMISSION PERFORMANCE: Supervision or touching assistance CODE: 04 BATHING: Not assessed/no information CODE: - DRESSING - UPPER BODY: Not assessed/no information CODE: - DRESSING - LOWER BODY: Not assessed/no information DRESSING - LOWER BODY - STEP 1: Does the patient complete the activity by him/herself with no assistance (physical, verbal/nonverbal cueing, setup/clean-up)? No. DRESSING - LOWER BODY - STEP 2: Does the patient need only setup/clean-up assistance from one helper? No. DRESSING - LOWER BODY - STEP 3: Does the patient need only verbal/nonverbal cueing or touching/steadying/contact guard assistance fro m one helper? Yes. 1. [id number] ADMISSION PERFORMANCE: Supervision or touching assistance CODE: 04 PUTTING ON/TAKING OFF FOOTWEAR: Not assessed/no information CODE: - ROLL LEFT AND RIGHT: ROLL LEFT AND RIGHT - STEP 1: Does the patient complete the activity by him/herself with no assistance (physical, verbal/nonverbal cueing, setup/clean-up)? No. ROLL LEFT AND RIGHT - STEP 2: Does the patient need only setup/clean-up assistance from one helper? No. ROLL LEFT AND RIGHT - STEP 3: Does the patient need only verbal/nonverbal cueing or touching/steadying/contact guard assistance fro m one helper? Yes. 1. [id number] ADMISSION PERFORMANCE: Supervision or touching assistance CODE: 04 SIT TO LYING: SIT TO LYING - STEP 1: Does the patient complete the activity by him/herself with no assistance (physical, verbal/nonverbal cueing, setup/clean-up)? No. SIT TO LYING - STEP 2: Does the patient need only setup/clean-up assistance from one helper? No. SIT TO LYING - STEP 3: Does the patient need only verbal/nonverbal cueing or touching/steadying/contact guard assistance fro m one helper? Yes. 1. [id number] ADMISSION PERFORMANCE: Supervision or touching assistance CODE: 04 LYING TO SITTING: LYING TO SITTING ON SIDE OF BED - STEP 1: Does the patient complete the activity by him/herself with no assistance (physical, verbal/nonverbal cueing, setup/clean-up)? No. LYING TO SITTING ON SIDE OF BED - STEP 2: Does the patient need only setup/clean-up assistance from one helper? No. LYING TO SITTING ON SIDE OF BED - STEP 3: Does the patient need only verbal/nonverbal cueing or touching/steadying/contact guard assistance fro m one helper? Yes. 1. [id number] ADMISSION PERFORMANCE: Supervision or touching assistance CODE: 04 SIT TO STAND: SIT TO STAND - STEP 1: Does the patient complete the activity by him/herself with no assistance (physical, verbal/nonverbal cueing, setup/clean-up)? No. SIT TO STAND - STEP 2: Does the patient need only setup/clean-up assistance from one helper? No. SIT TO STAND - STEP 3: Does the patient need only verbal/nonverbal cueing or touching/steadying/contact guard assistance fro m one helper? Yes. 1. [id number] ADMISSION PERFORMANCE: Supervision or touching assistance CODE: 04 TRANSFERS: BED, CHAIR: CHAIR/[id number] TRANSFER - STEP 1: Does the patient complete the activity by him/herself with no assistance (physical, verbal/nonverbal cueing, setup/clean-up)? No. CHAIR/[id number] TRANSFER - STEP 2: Does the patient need only setup/clean-up assistance from one helper? No. CHAIR/[id number] TRANSFER - STEP 3: Does the patient need only verbal/nonverbal cueing or touching/steadying/contact guard assistance fro m one helper? Yes. 1. [id number] ADMISSION PERFORMANCE: Supervision or touching assistance CODE: 04 TRANSFER TOILET: TOILET TRANSFER - STEP 1: Does the patient complete the activity by him/herself with no assistance (physical, verbal/nonverbal cueing, setup/clean-up)? No. TOILET TRANSFER - STEP 2: Does the patient need only setup/clean-up assistance from one helper? No. TOILET TRANSFER - STEP 3: Does the patient need only verbal/nonverbal cueing or touching/steadying/contact guard assistance fro m one helper? Yes. 1. [id number] ADMISSION PERFORMANCE: Supervision or touching assistance CODE: 04 TRANSFERS: CAR: Not assessed/no information CODE: - WALK 10 FEET: Not assessed/no information CODE: - 1 STEP (CURB): Not assessed/no information CODE: - PICKING UP OBJECT: Not assessed/no information CODE: - DOES THE PATIENT USE A WHEELCHAIR/SCOOTER? Q1. DOES THE PATIENT USE A WHEELCHAIR/SCOOTER?: Yes CODE: 1 WHEEL 50 FEET WITH TWO TURNS: WHEEL 50 FEET WITH TWO TURNS - STEP 1: Does the patient complete the activity by him/herself with no assistance (physical, verbal/nonverbal cueing, setup/clean-up)? No. WHEEL 50 FEET WITH TWO TURNS - STEP 2: Does the patient need only setup/clean-up assistance from one helper? Yes. 1. [id number] ADMISSION PERFORMANCE: Setup or clean-up assistance CODE: 05 INDICATE THE TYPE OF WHEELCHAIR/SCOOTER USED: RR1. INDICATE THE TYPE OF WHEELCHAIR/SCOOTER USED.: Manual CODE: 1 WHEEL 150 FEET: Not assessed/no information CODE: - INDICATE THE TYPE OF WHEELCHAIR/SCOOTER USED: SS1. INDICATE THE TYPE OF WHEELCHAIR/SCOOTER USED.: Manual CODE: 1 BLADDER AND BOWEL: H350. BLADDER CONTINENCE (3-DAY ASSESSMENT PERIOD): Always continent (no documented incontinence) CODE: 0 H400. BOWEL CONTINENCE (3-DAY ASSESSMENT PERIOD): Always continent CODE: 0 SIGNATURE PANEL: The following modified sections: 1. [id number] Admission Performance, 1. [id number] Admission Performance, 1. BV2848B Admission Performance, 1. UT9031A Admission Performance, 1. [id number] Admission Performance, 1. [id number] Admission Performance, 1. [id number] Admission Performance, 1. [id number] Admission Performance , 1. [id number] Admission Performance, 1. [id number] Admission Performance, 1. [id number] Admission Performanc e, 1. [id number] Admission Performance, 1. [id number] Admission Performance, Q1. Does the patient use a whe elchair/scooter?, 1. [id number] Admission Performance, 1. [id number] Admission Performance, RR1. Indicate t he type of wheelchair/scooter used., Code, SS1. Indicate the type of wheelchair/scooter used., H350. Bladder Continence (3-day assessment period), H400. Bowel Continence (3-day assessment period) were [ electronically] signed by Coretta Ordonez C.N.A. on ThuMar 28 2019 14:02:20 GMT-0600 (Central Standard Time)
--- NOTE | 2019-03-28 14:52 | FAST ---
ENCOUNTER DATE AND TIME: 03/24/2019 08:00 (CDT) NAME NELSON MYERS DATE OF : 1935 DATE OF ADMISSION: 03/21/2019 17:38 (CDT) PHONE: AGE: 83 N# [id number] GENDER: Female ENCOUNTER PHYSICIAN: Dr. Milton Torres M.D. 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 ROLL LEFT AND RIGHT: ROLL LEFT AND RIGHT - STEP 1: Does the patient complete the activity by him/herself with no assistance (physical, verbal/nonverbal cueing, setup/clean-up)? No. ROLL LEFT AND RIGHT - STEP 2: Does the patient need only setup/clean-up assistance from one helper? Yes. 1. [id number] ADMISSION PERFORMANCE: Setup or clean-up assistance CODE: 05 SIT TO LYING: SIT TO LYING - STEP 1: Does the patient complete the activity by him/herself with no assistance (physical, verbal/nonverbal cueing, setup/clean-up)? No. SIT TO LYING - STEP 2: Does the patient need only setup/clean-up assistance from one helper? Yes. 1. [id number] ADMISSION PERFORMANCE: Setup or clean-up assistance CODE: 05 LYING TO SITTING: LYING TO SITTING ON SIDE OF BED - STEP 1: Does the patient complete the activity by him/herself with no assistance (physical, verbal/nonverbal cueing, setup/clean-up)? No. LYING TO SITTING ON SIDE OF BED - STEP 2: Does the patient need only setup/clean-up assistance from one helper? Yes. 1. [id number] ADMISSION PERFORMANCE: Setup or clean-up assistance CODE: 05 SIT TO STAND: SIT TO STAND - STEP 1: Does the patient complete the activity by him/herself with no assistance (physical, verbal/nonverbal cueing, setup/clean-up)? No. SIT TO STAND - STEP 2: Does the patient need only setup/clean-up assistance from one helper? Yes. 1. [id number] ADMISSION PERFORMANCE: Setup or clean-up assistance CODE: 05 TRANSFERS: BED, CHAIR: CHAIR/[id number] TRANSFER - STEP 1: Does the patient complete the activity by him/herself with no assistance (physical, verbal/nonverbal cueing, setup/clean-up)? No. CHAIR/[id number] TRANSFER - STEP 2: Does the patient need only setup/clean-up assistance from one helper? Yes. 1. [id number] ADMISSION PERFORMANCE: Setup or clean-up assistance CODE: 05 TRANSFER TOILET: Not assessed/no information CODE: - TRANSFERS: CAR: Not assessed/no information CODE: - WALK 10 FEET: WALK 10 FEET - STEP 1: Does the patient complete the activity by him/herself with no assistance (physical, verbal/nonverbal cueing, setup/clean-up)? No. WALK 10 FEET - STEP 2: Does the patient need only setup/clean-up assistance from one helper? Yes. 1. [id number] ADMISSION PERFORMANCE: Setup or clean-up assistance CODE: 05 WALK 50 FEET: WALK 50 FEET - STEP 1: Does the patient complete the activity by him/herself with no assistance (physical, verbal/nonverbal cueing, setup/clean-up)? No. WALK 50 FEET - STEP 2: Does the patient need only setup/clean-up assistance from one helper? Yes. 1. [id number] ADMISSION PERFORMANCE: Setup or clean-up assistance CODE: 05 WALK 150 FEET: WALK 150 FEET - STEP 1: Does the patient complete the activity by him/herself with no assistance (physical, verbal/nonverbal cueing, setup/clean-up)? No. WALK 150 FEET - STEP 2: Does the patient need only setup/clean-up assistance from one helper? Yes. 1. [id number] ADMISSION PERFORMANCE: Setup or clean-up assistance CODE: 05 WALK 10 FEET UNEVEN: Not assessed/no information CODE: - 1 STEP (CURB): 1 STEP CURB - STEP 1: Does the patient complete the activity by him/herself with no assistance (physical, verbal/nonverbal cueing, setup/clean-up)? No. 1 STEP CURB - STEP 2: Does the patient need only setup/clean-up assistance from one helper? Yes. 1. [id number] ADMISSION PERFORMANCE: Setup or clean-up assistance CODE: 05 4 STEPS: 4 STEPS - STEP 1: Does the patient complete the activity by him/herself with no assistance (physical, verbal/nonverbal cueing, setup/clean-up)? No. 4 STEPS - STEP 2: Does the patient need only setup/clean-up assistance from one helper? Yes. 1. [id number] ADMISSION PERFORMANCE: Setup or clean-up assistance CODE: 05 12 STEPS: 12 STEPS - STEP 1: Does the patient complete the activity by him/herself with no assistance (physical, verbal/nonverbal cueing, setup/clean-up)? No. 12 STEPS - STEP 2: Does the patient need only setup/clean-up assistance from one helper? Yes. 1. [id number] ADMISSION PERFORMANCE: Setup or clean-up assistance CODE: 05 PICKING UP OBJECT: Not assessed/no information CODE: - DOES THE PATIENT USE A WHEELCHAIR/SCOOTER? Q1. DOES THE PATIENT USE A WHEELCHAIR/SCOOTER?: Yes CODE: 1 WHEEL 50 FEET WITH TWO TURNS: WHEEL 50 FEET WITH TWO TURNS - STEP 1: Does the patient complete the activity by him/herself with no assistance (physical, verbal/nonverbal cueing, setup/clean-up)? No. WHEEL 50 FEET WITH TWO TURNS - STEP 2: Does the patient need only setup/clean-up assistance from one helper? No. WHEEL 50 FEET WITH TWO TURNS - STEP 3: Does the patient need only verbal/nonverbal cueing or touching/steadying/contact guard assistance fro m one helper? Yes. 1. [id number] ADMISSION PERFORMANCE: Supervision or touching assistance CODE: 04 INDICATE THE TYPE OF WHEELCHAIR/SCOOTER USED: RR1. INDICATE THE TYPE OF WHEELCHAIR/SCOOTER USED.: Manual CODE: 1 WHEEL 150 FEET: WHEEL 150 FEET - STEP 1: Does the patient complete the activity by him/herself with no assistance (physical, verbal/nonverbal cueing, setup/clean-up)? No. WHEEL 150 FEET - STEP 2: Does the patient need only setup/clean-up assistance from one helper? No. WHEEL 150 FEET - STEP 3: Does the patient need only verbal/nonverbal cueing or touching/steadying/contact guard assistance fro m one helper? Yes. 1. [id number] ADMISSION PERFORMANCE: Supervision or touching assistance CODE: 04 INDICATE THE TYPE OF WHEELCHAIR/SCOOTER USED: SS1. INDICATE THE TYPE OF WHEELCHAIR/SCOOTER USED.: Manual CODE: 1 BLADDER AND BOWEL: CODE: EXPR CODE: EXPR SIGNATURE PANEL: The following modified sections: 1. [id number] Admission Performance, 1. [id number] Admission Performance, 1. [id number] Admission Performance, 1. [id number] Admission Performance, 1. [id number] Admission Performance, 1. RR2704U Admission Performance, 1. [id number] Admission Performance, 1. JL4399V Admission Performance , 1. SB3398E Admission Performance, 1. IB1276Z Admission Performance, 1. [id number] Admission Performanc e, Q1. Does the patient use a wheelchair/scooter?, 1. EU0888V Admission Performance, 1. [id number] Admis mal Performance, Code, SS1. Indicate the type of wheelchair/scooter used., RR1. Indicate the type of wheelchair/scooter used. were [electronically] signed by Vinnie Jackson PTA on ThuMar 28 2019 14:51:43 GMT-0600 (Central Standard Time)
--- NOTE | 2019-03-28 19:24 | R.PN ---
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 SUBJECTIVE: Pt denied any Shortness of Breath. Pt denied any depression. Labs reviewed and are stable. She is feeling well after 2 units of blood. Shes is making better prog ress with physical and occupational therapy. VITAL SIGNS Temperature: 97.2 F SBP/DBP: 131/76 Pulse: 74 Resp: 16 MEDICATION ALLERGIES: No Known Drug Allergies (NKDA) ENVIRONMENTAL ALLERGIES: - Substance Allergies None Known - Other Allergies None Known NURSING: - Shower allowing shower - Bladder care per protocol - Skin care per protocol PRECAUTIONS: - Weight Bearing Precaution WBAT left LE ACTIVITIES OOB only with supervision THERAPIES: - Occupational Therapy Cognitive Retraining. Visual Perceptual Training. - Dietary and Nutrition Adequate Nutrition. Nutritional Education. Nutritional Supplements. - Speech Therapy Cognitive Training. Expressive Language Skills. Memory Strategies. Receptive Language Skills. Speech Intelligibility Training. PHYSICAL EXAM - Gen Alert and awake Lying in bed No apparent distress Oriented to: person, time, and place - Skin Allergic rash and edema of the the legs No abnormalities - Eyes No abnormalities - ENMT No abnormalities - Neck No abnormalities - CVS RRR - Chest No abnormalities - Resp Clear to auscultation - Abd + bowel sounds - GI nondistended Deferred - No abnormalities - Ext Mild to moderate bilateral lower extremity edema. - MSK 4+/5 weakness in left lower extremity - Neuro 4/5 strength left lower extremity. - Psych No abnormalities ASSESSMENT: Pt. is a 83 yo Right-handed white female.On 03/10/2019 Pt. presented to [facility] with sudden o nset of left-side weakness.On 03/10/2019 she was admitted to [facility] with diagnosis L PRE SCHOOL MANAGER occ lusion.Her impairment category is Stroke 01 - Left Body (Right Brain) (01.1).Pre-morbidly, Pt. was i ndependent/mod-I in Self-Care, Sphincter Control, Transfers Control, Locomotion, Communication, and S ocial Cognition; and she had good Sphincter Control.Currently, she has deficits of Self-Care, Transfe rs Control, Locomotion, Communication, Social Cognition, Endurance, Balance, and Safety Awareness.Pt. is now referred to [facility] for acute in-patient rehabilitation in order to maximize patient's functional independence in activities of daily living, strength, ROM, and mobilit y.- Rehab Goal Patient has realistic goal of being discharged at assistance level 6-Jakob to reside at Home with Fam christina/Relatives. MDM/PLAN: - Physical Therapy Gait dysfunction - to improve, our physical therapists will perform initial evaluation of pt's statu s upon admission and devise an individualized program for Gait Training, and Wheel Chair mobility Inability to transfer - to improve, our physical therapists will perform initial evaluation of pt's status upon admission and devise an individualized program for Bed mobility Need for home safety evaluation - to improve, our physical therapists will perform initial evaluatio n of pt's status upon admission and devise an individualized program for Home Evaluation Need in caregiver upon discharge - to improve, our physical therapists will perform initial evaluati on of pt's status upon admission and devise an individualized program for Caregiver Training Edema - to improve, our physical therapists will perform initial evaluation of pt's status upon admi ssion and devise an individualized program for Elevation Training, and Lymphedema Therapy New precaution - to improve, our physical therapists will perform initial evaluation of pt's status upon admission and devise an individualized program for Patient precaution education Poor balance - to improve, our physical therapists will perform initial evaluation of pt's status up on admission and devise an individualized program for Balance Training Poor endurance - to improve, our physical therapists will perform initial evaluation of pt's status upon admission and devise an individualized program for Endurance Training Weakness - to improve, our physical therapists will perform initial evaluation of pt's status upon a dmission and devise an individualized program for Aquatic Therapy, Neuromuscular Reeducation, and Str engthening Achieving independence - to improve, our physical therapists will perform initial evaluation of pt's status upon admission and devise an individualized program for Community Reintegration Activities - Occupational Therapy ADL deficits - to improve, our occupation therapists will perform initial evaluation of pt's status upon admission and devise an individualized program for Bathing, Bed mobility, Community Reintegratio n, Cooking, Dressing, Eating, Fine Motor Skills, Grooming, Homemaking, Kitchen Mobility, Laundry, Pat ient Education, Safety Awareness, Splinting - Positioning, Transfers(Toilet, Tub, Shower), and Wheel Chair Management Cognitive deficits - to improve, our occupation therapists will perform initial evaluation of pt's s tatus upon admission and devise an individualized program for Cognition - orientation Need for pet care attendant - to improve, our occupation therapists will perform initial evaluation of pt's status upon admission and devise an individualized program for Caregiver Training Weakness - to improve, our occupation therapists will perform initial evaluation of pt's status upon admission and devise an individualized program for Aquatic Therapy, Balance, Endurance, UE ROM, and UE strengthening - Other See attached MAR (Medication Administration Record) - Diet Type Continue Regular - Diet - Liquid Texture Continue Regular - Tube Feed Continue N/A - Bladder care per protocol - Weight Bearing Precaution WBAT left LE - Skin care per protocol - Diet - Solid Texture Continue Regular - Shower allowing shower for Dementia, TBI, Stroke, or others FUNCTIONAL STATUS: UPDATED AT WEEKLY TEAM CONFERENCE - Bladder Same accident frequency: 7-Ind - No accidents in the past 7 days - Bowel Same accident frequency: 7-Ind - No accidents in the past 7 days - Walking Same score based on distance walked: 1(<=50ft) - Wheelchair Same score based on distance traveled: 1(<=50ft) FUNCTIONAL STATUS: - Self-Care A. Eating sup B. Grooming sup C. Bathing modA D. Dressing - Upper sup E. Dressing - Lower maxA F. Toileting modA - Sphincter Control G: Bladder control Ind H: Bowel control Ind - Transfers Control I. Bed/Chair/Wheelchair CGA J. Toilet CGA K. Tub/Shower Joaquim - Locomotion L. Walk/Wheelchair (C) maxA L. Walk/Wheelchair (W) ADNO M. Stairs ADNO - Communication N. Comprehension (B) sup O. Expression (B) sup - Social Cognition P. Social Interaction sup Q. Problem Solving sup R. Memory sup - Endurance Poor - Balance Poor - Safety Awareness Fair QI SCORES: - Self-Care A. Eating 05-Setup or clean-up assistance B. Oral hygiene 05-Setup or clean-up assistance C. Toileting hygiene 05-Setup or clean-up assistance E. Shower/bathe self 03-Partial/moderate assistance F. Upper body dressing 05-Setup or clean-up assistance G. Lower body dressing 04-Supervision or touching assistance H. Putting on/taking off footwear 88-Not attempted due to medical condition or safety concerns - Mobility A. Roll left and right 04-Supervision or touching assistance B. Sit to lying 04-Supervision or touching assistance C. Lying to sitting on side of bed 04-Supervision or touching assistance D. Sit to stand 03-Partial/moderate assistance E. Chair/arh-ut-ceeej transfer 05-Setup or clean-up assistance F. Toilet transfer 05-Setup or clean-up assistance G. Car transfer 88-Not attempted due to medical condition or safety concerns I. Walk 10 feet 03-Partial/moderate assistance J. Walk 50 feet with two turns 88-Not attempted due to medical condition or safety concerns K. Walk 150 feet 88-Not attempted due to medical condition or safety concerns L. Walking 10 feet on uneven surfaces 88-Not attempted due to medical condition or safety concerns M. 1 step (curb) 88-Not attempted due to medical condition or safety concerns N. 4 steps 88-Not attempted due to medical condition or safety concerns O. 12 steps 88-Not attempted due to medical condition or safety concerns P. Picking up object 88-Not attempted due to medical condition or safety concerns R. Wheel 50 feet with two turns 88-Not attempted due to medical condition or safety concerns S. Wheel 150 feet 88-Not attempted due to medical condition or safety concerns - Bladder and Bowel Bladder continence 0-Always continent Bowel continence 0-Always continent CURRENT FUNC. 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
[2019-03-28] MEDS: ATORVASTATIN 80 MG TAB PO SCH (20:11)
[2019-03-29] MEDS: carvediloL 25 MG TAB PO SCH ×2 (05:02→17:02)
[2019-03-29] MEDS: MAGNESIUM OXIDE 400 MG TAB PO SCH ×3 (08:00→20:00)
[2019-03-29] MEDS: VITAMIN A PO SCH (08:21)
[2019-03-29] MEDS: HYDROCORTISONE 1% OINTMENT TOP SCH (08:21)
[2019-03-29] MEDS: VITAMIN D 1000 UNIT TAB PO SCH (08:23)
[2019-03-29] MEDS: CRANBERRY FRUIT EXTRACT 200 MG CAP PO SCH ×3 (08:23→20:00)
[2019-03-29] MEDS: ISOSORBIDE MONO SR 30 MG TAB PO SCH (08:24)
[2019-03-29] MEDS: CLOPIDOGREL 75 MG TABLET PO SCH (08:24)
[2019-03-29] MEDS: FE SULF/FA/VIT B COMP & C TAB PO SCH (08:24)
[2019-03-29] MEDS: FERROUS SULFATE 325 MG TAB PO SCH (08:24)
[2019-03-29] MEDS: FUROSEMIDE 20 MG TABLET PO SCH (08:25)
[2019-03-29] MEDS: predniSONE 10 MG TAB PO SCH (08:25)
[2019-03-29] MEDS: CYANOCOBALAMIN 1,000 MCG TAB PO SCH (08:26)
[2019-03-29] MEDS: ASPIRIN 81 MG CHEWABLE TABLET PO SCH (08:26)
[2019-03-29] MEDS: levoFLOXacin 500 MG TAB PO SCH (08:27)
[2019-03-29] MEDS: PROMOD 30 ML DOSE PO SCH ×2 (09:35→19:39)
--- NOTE | 2019-03-29 15:33 | FAST ---
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 Milton Torres M.D. 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 EATING: EATING - STEP 1: Does the patient complete the activity by him/herself with no assistance (physical, verbal/nonverbal cueing, setup/clean-up)? No. EATING - STEP 2: Does the patient need only setup/clean-up assistance from one helper? Yes. 1. [id number] ADMISSION PERFORMANCE: Setup or clean-up assistance CODE: 05 ORAL HYGIENE: ORAL HYGIENE - STEP 1: Does the patient complete the activity by him/herself with no assistance (physical, verbal/nonverbal cueing, setup/clean-up)? No. ORAL HYGIENE - STEP 2: Does the patient need only setup/clean-up assistance from one helper? Yes. 1. [id number] ADMISSION PERFORMANCE: Setup or clean-up assistance CODE: 05 TOILETING HYGIENE: TOILETING HYGIENE - STEP 1: Does the patient complete the activity by him/herself with no assistance (physical, verbal/nonverbal cueing, setup/clean-up)? No. TOILETING HYGIENE - STEP 2: Does the patient need only setup/clean-up assistance from one helper? No. TOILETING HYGIENE - STEP 3: Does the patient need only verbal/nonverbal cueing or touching/steadying/contact guard assistance fro m one helper? Yes. 1. [id number] ADMISSION PERFORMANCE: Supervision or touching assistance CODE: 04 BATHING: Not assessed/no information CODE: - DRESSING - UPPER BODY: Not assessed/no information CODE: - DRESSING - LOWER BODY: DRESSING - LOWER BODY - STEP 1: Does the patient complete the activity by him/herself with no assistance (physical, verbal/nonverbal cueing, setup/clean-up)? No. DRESSING - LOWER BODY - STEP 2: Does the patient need only setup/clean-up assistance from one helper? No. DRESSING - LOWER BODY - STEP 3: Does the patient need only verbal/nonverbal cueing or touching/steadying/contact guard assistance fro m one helper? Yes. 1. [id number] ADMISSION PERFORMANCE: Supervision or touching assistance CODE: 04 PUTTING ON/TAKING OFF FOOTWEAR: FOOTWEAR - STEP 1: Does the patient complete the activity by him/herself with no assistance (physical, verbal/nonverbal cueing, setup/clean-up)? No. FOOTWEAR - STEP 2: Does the patient need only setup/clean-up assistance from one helper? No. FOOTWEAR - STEP 3: Does the patient need only verbal/nonverbal cueing or touching/steadying/contact guard assistance fro m one helper? Yes. 1. [id number] ADMISSION PERFORMANCE: Supervision or touching assistance CODE: 04 ROLL LEFT AND RIGHT: ROLL LEFT AND RIGHT - STEP 1: Does the patient complete the activity by him/herself with no assistance (physical, verbal/nonverbal cueing, setup/clean-up)? No. ROLL LEFT AND RIGHT - STEP 2: Does the patient need only setup/clean-up assistance from one helper? No. ROLL LEFT AND RIGHT - STEP 3: Does the patient need only verbal/nonverbal cueing or touching/steadying/contact guard assistance fro m one helper? Yes. 1. [id number] ADMISSION PERFORMANCE: Supervision or touching assistance CODE: 04 SIT TO LYING: SIT TO LYING - STEP 1: Does the patient complete the activity by him/herself with no assistance (physical, verbal/nonverbal cueing, setup/clean-up)? No. SIT TO LYING - STEP 2: Does the patient need only setup/clean-up assistance from one helper? No. SIT TO LYING - STEP 3: Does the patient need only verbal/nonverbal cueing or touching/steadying/contact guard assistance fro m one helper? Yes. 1. [id number] ADMISSION PERFORMANCE: Supervision or touching assistance CODE: 04 LYING TO SITTING: LYING TO SITTING ON SIDE OF BED - STEP 1: Does the patient complete the activity by him/herself with no assistance (physical, verbal/nonverbal cueing, setup/clean-up)? No. LYING TO SITTING ON SIDE OF BED - STEP 2: Does the patient need only setup/clean-up assistance from one helper? No. LYING TO SITTING ON SIDE OF BED - STEP 3: Does the patient need only verbal/nonverbal cueing or touching/steadying/contact guard assistance fro m one helper? Yes. 1. [id number] ADMISSION PERFORMANCE: Supervision or touching assistance CODE: 04 SIT TO STAND: SIT TO STAND - STEP 1: Does the patient complete the activity by him/herself with no assistance (physical, verbal/nonverbal cueing, setup/clean-up)? No. SIT TO STAND - STEP 2: Does the patient need only setup/clean-up assistance from one helper? No. SIT TO STAND - STEP 3: Does the patient need only verbal/nonverbal cueing or touching/steadying/contact guard assistance fro m one helper? Yes. 1. [id number] ADMISSION PERFORMANCE: Supervision or touching assistance CODE: 04 TRANSFERS: BED, CHAIR: CHAIR/[id number] TRANSFER - STEP 1: Does the patient complete the activity by him/herself with no assistance (physical, verbal/nonverbal cueing, setup/clean-up)? No. CHAIR/[id number] TRANSFER - STEP 2: Does the patient need only setup/clean-up assistance from one helper? No. CHAIR/XLO-SC-LYRAY TRANSFER - STEP 3: Does the patient need only verbal/nonverbal cueing or touching/steadying/contact guard assistance fro m one helper? Yes. 1. [id number] ADMISSION PERFORMANCE: Supervision or touching assistance CODE: 04 TRANSFER TOILET: TOILET TRANSFER - STEP 1: Does the patient complete the activity by him/herself with no assistance (physical, verbal/nonverbal cueing, setup/clean-up)? No. TOILET TRANSFER - STEP 2: Does the patient need only setup/clean-up assistance from one helper? No. TOILET TRANSFER - STEP 3: Does the patient need only verbal/nonverbal cueing or touching/steadying/contact guard assistance fro m one helper? Yes. 1. [id number] ADMISSION PERFORMANCE: Supervision or touching assistance CODE: 04 TRANSFERS: CAR: Not assessed/no information CODE: - WALK 10 FEET: Not assessed/no information CODE: - 1 STEP (CURB): Not assessed/no information CODE: - PICKING UP OBJECT: Not assessed/no information CODE: - DOES THE PATIENT USE A WHEELCHAIR/SCOOTER? Q1. DOES THE PATIENT USE A WHEELCHAIR/SCOOTER?: Yes CODE: 1 WHEEL 50 FEET WITH TWO TURNS: WHEEL 50 FEET WITH TWO TURNS - STEP 1: Does the patient complete the activity by him/herself with no assistance (physical, verbal/nonverbal cueing, setup/clean-up)? No. WHEEL 50 FEET WITH TWO TURNS - STEP 2: Does the patient need only setup/clean-up assistance from one helper? No. WHEEL 50 FEET WITH TWO TURNS - STEP 3: Does the patient need only verbal/nonverbal cueing or touching/steadying/contact guard assistance fro m one helper? Yes. 1. [id number] ADMISSION PERFORMANCE: Supervision or touching assistance CODE: 04 INDICATE THE TYPE OF WHEELCHAIR/SCOOTER USED: RR1. INDICATE THE TYPE OF WHEELCHAIR/SCOOTER USED.: Motorized CODE: 2 WHEEL 150 FEET: WHEEL 150 FEET - STEP 1: Does the patient complete the activity by him/herself with no assistance (physical, verbal/nonverbal cueing, setup/clean-up)? No. WHEEL 150 FEET - STEP 2: Does the patient need only setup/clean-up assistance from one helper? No. WHEEL 150 FEET - STEP 3: Does the patient need only verbal/nonverbal cueing or touching/steadying/contact guard assistance fro m one helper? Yes. 1. [id number] ADMISSION PERFORMANCE: Supervision or touching assistance CODE: 04 INDICATE THE TYPE OF WHEELCHAIR/SCOOTER USED: SS1. INDICATE THE TYPE OF WHEELCHAIR/SCOOTER USED.: Motorized CODE: 2 BLADDER AND BOWEL: H350. BLADDER CONTINENCE (3-DAY ASSESSMENT PERIOD): Incontinent less than daily (e.g., once or twice during the 3-day assessment period) CODE: 2 H400. BOWEL CONTINENCE (3-DAY ASSESSMENT PERIOD): Occasionally incontinent (one episode of bowel incontinence) CODE: 1 SIGNATURE PANEL: The following modified sections: 1. [id number] Admission Performance, 1. US1285I Admission Performance, 1. [id number] Admission Performance, 1. [id number] Admission Performance, 1. [id number] Admission Performance, 1. [id number] Admission Performance, 1. [id number] Admission Performance, 1. [id number] Admission Performance , 1. [id number] Admission Performance, 1. [id number] Admission Performance, 1. [id number] Admission Performanc e, 1. [id number] Admission Performance, 1. [id number] Admission Performance, 1. [id number] Admission Performan ce, 1. [id number] Admission Performance, Q1. Does the patient use a wheelchair/scooter?, 1. [id number] Admi ssion Performance, 1. [id number] Admission Performance, RR1. Indicate the type of wheelchair/scooter use d., 1. [id number] Admission Performance, Code, SS1. Indicate the type of wheelchair/scooter used., H350. Bladder Continence (3-day assessment period), H400. Bowel Continence (3-day assessment period) were [electronically] signed by Coretta Ordonez C.N.A. on ThuMar 29 2019 15:32:14 T-0600 (Central Standar d Time)
[2019-03-29] MEDS: HYDROCORTISONE 1 % OINT 30GM TOP SCH ×2 (19:38→20:00)
[2019-03-29] MEDS: ATORVASTATIN 80 MG TAB PO SCH ×2 (20:00→20:12)
[2019-03-30] MEDS: carvediloL 25 MG TAB PO SCH ×2 (05:27→17:17)
[2019-03-30] MEDS: HYDROCORTISONE 1 % OINT 30GM TOP SCH ×2 (08:16→20:00)
[2019-03-30] MEDS: VITAMIN A PO SCH (08:16)
[2019-03-30] MEDS: MAGNESIUM OXIDE 400 MG TAB PO SCH ×2 (08:17→20:01)
[2019-03-30] MEDS: CRANBERRY FRUIT EXTRACT 200 MG CAP PO SCH ×2 (08:17→20:02)
[2019-03-30] MEDS: CLOPIDOGREL 75 MG TABLET PO SCH (08:17)
[2019-03-30] MEDS: ASPIRIN 81 MG CHEWABLE TABLET PO SCH (08:18)
[2019-03-30] MEDS: FUROSEMIDE 20 MG TABLET PO SCH (08:18)
[2019-03-30] MEDS: VITAMIN D 1000 UNIT TAB PO SCH (08:18)
[2019-03-30] MEDS: levoFLOXacin 500 MG TAB PO SCH (08:19)
[2019-03-30] MEDS: CYANOCOBALAMIN 1,000 MCG TAB PO SCH (08:19)
[2019-03-30] MEDS: FERROUS SULFATE 325 MG TAB PO SCH (08:19)
[2019-03-30] MEDS: predniSONE 10 MG TAB PO SCH (08:19)
[2019-03-30] MEDS: FE SULF/FA/VIT B COMP & C TAB PO SCH (08:20)
[2019-03-30] MEDS: PROMOD 30 ML DOSE PO SCH ×2 (08:20→20:00)
[2019-03-30] MEDS: ISOSORBIDE MONO SR 30 MG TAB PO SCH (08:20)
--- NOTE | 2019-03-30 17:58 | R.PN ---
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 SUBJECTIVE: Pt denied any Shortness of Breath. Pt denied any depression. Labs reviewed and are stable. She completed Levaquin 500 mg daily for 5 days. She is making good prog ress with physical, occupational and speech therapy. VITAL SIGNS Temperature: 97.5 F SBP/DBP: 128/79 Pulse: 76 Resp: 16 MEDICATION ALLERGIES: No Known Drug Allergies (NKDA) ENVIRONMENTAL ALLERGIES: - Substance Allergies None Known - Other Allergies None Known NURSING: - Shower allowing shower - Bladder care per protocol - Skin care per protocol PRECAUTIONS: - Weight Bearing Precaution WBAT left LE ACTIVITIES OOB only with supervision THERAPIES: - Occupational Therapy Cognitive Retraining. Visual Perceptual Training. - Dietary and Nutrition Adequate Nutrition. Nutritional Education. Nutritional Supplements. - Speech Therapy Cognitive Training. Expressive Language Skills. Memory Strategies. Receptive Language Skills. Speech Intelligibility Training. PHYSICAL EXAM - Gen Alert and awake Lying in bed No apparent distress Oriented to: person, time, and place - Skin Allergic rash and edema of the the legs No abnormalities - Eyes No abnormalities - ENMT No abnormalities - Neck No abnormalities - CVS RRR - Chest No abnormalities - Resp Clear to auscultation - Abd + bowel sounds - GI nondistended Deferred - No abnormalities - Ext Mild to moderate bilateral lower extremity edema. - MSK 4+/5 weakness in left lower extremity - Neuro 4/5 strength left lower extremity. - Psych No abnormalities ASSESSMENT: Pt. is a 83 yo Right-handed white female.On 03/10/2019 Pt. presented to [facility] with sudden o nset of left-side weakness.On 03/10/2019 she was admitted to [facility] with diagnosis L SENIOR ANALYST MARKET INTELLIGENCE occ lusion.Her impairment category is Stroke 01 - Left Body (Right Brain) (01.1).Pre-morbidly, Pt. was i ndependent/mod-I in Self-Care, Sphincter Control, Transfers Control, Locomotion, Communication, and S ocial Cognition; and she had good Sphincter Control.Currently, she has deficits of Self-Care, Transfe rs Control, Locomotion, Communication, Social Cognition, Endurance, Balance, and Safety Awareness.Pt. is now referred to [facility] for acute in-patient rehabilitation in order to maximize patient's functional independence in activities of daily living, strength, ROM, and mobilit y.- Rehab Goal Patient has realistic goal of being discharged at assistance level 6-Jakob to reside at Home with Fam christina/Relatives. MDM/PLAN: - Physical Therapy Gait dysfunction - to improve, our physical therapists will perform initial evaluation of pt's statu s upon admission and devise an individualized program for Gait Training, and Wheel Chair mobility Inability to transfer - to improve, our physical therapists will perform initial evaluation of pt's status upon admission and devise an individualized program for Bed mobility Need for home safety evaluation - to improve, our physical therapists will perform initial evaluatio n of pt's status upon admission and devise an individualized program for Home Evaluation Need in caregiver upon discharge - to improve, our physical therapists will perform initial evaluati on of pt's status upon admission and devise an individualized program for Caregiver Training Edema - to improve, our physical therapists will perform initial evaluation of pt's status upon admi ssion and devise an individualized program for Elevation Training, and Lymphedema Therapy New precaution - to improve, our physical therapists will perform initial evaluation of pt's status upon admission and devise an individualized program for Patient precaution education Poor balance - to improve, our physical therapists will perform initial evaluation of pt's status up on admission and devise an individualized program for Balance Training Poor endurance - to improve, our physical therapists will perform initial evaluation of pt's status upon admission and devise an individualized program for Endurance Training Weakness - to improve, our physical therapists will perform initial evaluation of pt's status upon a dmission and devise an individualized program for Aquatic Therapy, Neuromuscular Reeducation, and Str engthening Achieving independence - to improve, our physical therapists will perform initial evaluation of pt's status upon admission and devise an individualized program for Community Reintegration Activities - Occupational Therapy ADL deficits - to improve, our occupation therapists will perform initial evaluation of pt's status upon admission and devise an individualized program for Bathing, Bed mobility, Community Reintegratio n, Cooking, Dressing, Eating, Fine Motor Skills, Grooming, Homemaking, Kitchen Mobility, Laundry, Pat ient Education, Safety Awareness, Splinting - Positioning, Transfers(Toilet, Tub, Shower), and Wheel Chair Management Cognitive deficits - to improve, our occupation therapists will perform initial evaluation of pt's s tatus upon admission and devise an individualized program for Cognition - orientation Need for career development coordinator/teacher - to improve, our occupation therapists will perform initial evaluation of pt's status upon admission and devise an individualized program for Caregiver Training Weakness - to improve, our occupation therapists will perform initial evaluation of pt's status upon admission and devise an individualized program for Aquatic Therapy, Balance, Endurance, UE ROM, and UE strengthening - Other See attached MAR (Medication Administration Record) - Diet Type Continue Regular - Diet - Liquid Texture Continue Regular - Tube Feed Continue N/A - Bladder care per protocol - Weight Bearing Precaution WBAT left LE - Skin care per protocol - Diet - Solid Texture Continue Regular - Shower allowing shower for Dementia, TBI, Stroke, or others FUNCTIONAL STATUS: UPDATED AT WEEKLY TEAM CONFERENCE - Bladder Same accident frequency: 7-Ind - No accidents in the past 7 days - Bowel Same accident frequency: 7-Ind - No accidents in the past 7 days - Walking Same score based on distance walked: 1(<=50ft) - Wheelchair Same score based on distance traveled: 1(<=50ft) FUNCTIONAL STATUS: - Self-Care A. Eating sup B. Grooming sup C. Bathing modA D. Dressing - Upper sup E. Dressing - Lower maxA F. Toileting modA - Sphincter Control G: Bladder control Ind H: Bowel control Ind - Transfers Control I. Bed/Chair/Wheelchair CGA J. Toilet CGA K. Tub/Shower Joaquim - Locomotion L. Walk/Wheelchair (C) maxA L. Walk/Wheelchair (W) ADNO M. Stairs ADNO - Communication N. Comprehension (B) sup O. Expression (B) sup - Social Cognition P. Social Interaction sup Q. Problem Solving sup R. Memory sup - Endurance Poor - Balance Poor - Safety Awareness Fair QI SCORES: - Self-Care A. Eating 05-Setup or clean-up assistance B. Oral hygiene 05-Setup or clean-up assistance C. Toileting hygiene 05-Setup or clean-up assistance E. Shower/bathe self 03-Partial/moderate assistance F. Upper body dressing 05-Setup or clean-up assistance G. Lower body dressing 04-Supervision or touching assistance H. Putting on/taking off footwear 88-Not attempted due to medical condition or safety concerns - Mobility A. Roll left and right 04-Supervision or touching assistance B. Sit to lying 04-Supervision or touching assistance C. Lying to sitting on side of bed 04-Supervision or touching assistance D. Sit to stand 03-Partial/moderate assistance E. Chair/mug-pe-jdiij transfer 05-Setup or clean-up assistance F. Toilet transfer 05-Setup or clean-up assistance G. Car transfer 88-Not attempted due to medical condition or safety concerns I. Walk 10 feet 03-Partial/moderate assistance J. Walk 50 feet with two turns 88-Not attempted due to medical condition or safety concerns K. Walk 150 feet 88-Not attempted due to medical condition or safety concerns L. Walking 10 feet on uneven surfaces 88-Not attempted due to medical condition or safety concerns M. 1 step (curb) 88-Not attempted due to medical condition or safety concerns N. 4 steps 88-Not attempted due to medical condition or safety concerns O. 12 steps 88-Not attempted due to medical condition or safety concerns P. Picking up object 88-Not attempted due to medical condition or safety concerns R. Wheel 50 feet with two turns 88-Not attempted due to medical condition or safety concerns S. Wheel 150 feet 88-Not attempted due to medical condition or safety concerns - Bladder and Bowel Bladder continence 0-Always continent Bowel continence 0-Always continent CURRENT FUNC. 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
[2019-03-30] MEDS: ATORVASTATIN 80 MG TAB PO SCH (20:01)
[2019-03-31] MEDS: carvediloL 25 MG TAB PO SCH ×2 (05:19→16:44)
[2019-03-31 06:04] LABS: Absolute Lymphocytes (CBC) 0.8 K/uL (0.7-4.9); Basophils % 0.7 % (0-1.3); Lymphocytes % 28.5 % (15.3-44.8); MPV 9.1 fL (7.6-11.3)
[2019-03-31 06:21] LABS: Magnesium 2.4 mg/dL (1.8-2.4); Potassium 4.1 mmol/L (3.5-5.1); Prealbumin 9.4 mg/dL (20-40)
[2019-03-31 08:03] LABS: Platelet Estimate DECR
[2019-03-31 08:05] LABS: Anisocytosis 1+; Blood Morphology Comment NOTED (NOT SEEN)
[2019-03-31 08:06] LABS: Burr Cells 1+; Elliptocytes 1+; Poikilocytosis 1+
[2019-03-31] MEDS: CRANBERRY FRUIT EXTRACT 200 MG CAP PO SCH ×2 (08:13→20:35)
[2019-03-31] MEDS: FE SULF/FA/VIT B COMP & C TAB PO SCH (08:15)
[2019-03-31] MEDS: ASPIRIN 81 MG CHEWABLE TABLET PO SCH (08:16)
[2019-03-31] MEDS: predniSONE 10 MG TAB PO SCH (08:16)
[2019-03-31] MEDS: VITAMIN D 1000 UNIT TAB PO SCH (08:16)
[2019-03-31] MEDS: ISOSORBIDE MONO SR 30 MG TAB PO SCH (08:16)
[2019-03-31] MEDS: CLOPIDOGREL 75 MG TABLET PO SCH (08:16)
[2019-03-31] MEDS: CYANOCOBALAMIN 1,000 MCG TAB PO SCH (08:16)
[2019-03-31] MEDS: FUROSEMIDE 20 MG TABLET PO SCH (08:17)
[2019-03-31] MEDS: MAGNESIUM OXIDE 400 MG TAB PO SCH ×2 (08:17→20:35)
[2019-03-31] MEDS: FERROUS SULFATE 325 MG TAB PO SCH ×2 (08:17→20:35)
[2019-03-31] MEDS: VITAMIN A PO SCH (08:18)
[2019-03-31] MEDS: HYDROCORTISONE 1 % OINT 30GM TOP SCH ×2 (08:18→20:35)
[2019-03-31] MEDS: PROMOD 30 ML DOSE PO SCH ×2 (08:19→20:36)
--- NOTE | 2019-03-31 10:51 | FAST ---
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 Milton Torres M.D. 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 EATING: EATING - STEP 1: Does the patient complete the activity by him/herself with no assistance (physical, verbal/nonverbal cueing, setup/clean-up)? No. EATING - STEP 2: Does the patient need only setup/clean-up assistance from one helper? No. EATING - STEP 3: Does the patient need only verbal/nonverbal cueing or touching/steadying/contact guard assistance fro m one helper? Yes. 1. [id number] ADMISSION PERFORMANCE: Supervision or touching assistance CODE: 04 ORAL HYGIENE: ORAL HYGIENE - STEP 1: Does the patient complete the activity by him/herself with no assistance (physical, verbal/nonverbal cueing, setup/clean-up)? No. ORAL HYGIENE - STEP 2: Does the patient need only setup/clean-up assistance from one helper? No. ORAL HYGIENE - STEP 3: Does the patient need only verbal/nonverbal cueing or touching/steadying/contact guard assistance fro m one helper? Yes. 1. [id number] ADMISSION PERFORMANCE: Supervision or touching assistance CODE: 04 TOILETING HYGIENE: TOILETING HYGIENE - STEP 1: Does the patient complete the activity by him/herself with no assistance (physical, verbal/nonverbal cueing, setup/clean-up)? No. TOILETING HYGIENE - STEP 2: Does the patient need only setup/clean-up assistance from one helper? Yes. 1. [id number] ADMISSION PERFORMANCE: Setup or clean-up assistance CODE: 05 BATHING: Not assessed/no information CODE: - DRESSING - UPPER BODY: Not assessed/no information CODE: - DRESSING - LOWER BODY: Not assessed/no information CODE: - PUTTING ON/TAKING OFF FOOTWEAR: Not assessed/no information CODE: - ROLL LEFT AND RIGHT: ROLL LEFT AND RIGHT - STEP 1: Does the patient complete the activity by him/herself with no assistance (physical, verbal/nonverbal cueing, setup/clean-up)? No. ROLL LEFT AND RIGHT - STEP 2: Does the patient need only setup/clean-up assistance from one helper? No. ROLL LEFT AND RIGHT - STEP 3: Does the patient need only verbal/nonverbal cueing or touching/steadying/contact guard assistance fro m one helper? Yes. 1. [id number] ADMISSION PERFORMANCE: Supervision or touching assistance CODE: 04 SIT TO LYING: SIT TO LYING - STEP 1: Does the patient complete the activity by him/herself with no assistance (physical, verbal/nonverbal cueing, setup/clean-up)? No. SIT TO LYING - STEP 2: Does the patient need only setup/clean-up assistance from one helper? No. SIT TO LYING - STEP 3: Does the patient need only verbal/nonverbal cueing or touching/steadying/contact guard assistance fro m one helper? Yes. 1. [id number] ADMISSION PERFORMANCE: Supervision or touching assistance CODE: 04 LYING TO SITTING: LYING TO SITTING ON SIDE OF BED - STEP 1: Does the patient complete the activity by him/herself with no assistance (physical, verbal/nonverbal cueing, setup/clean-up)? No. LYING TO SITTING ON SIDE OF BED - STEP 2: Does the patient need only setup/clean-up assistance from one helper? Yes. 1. [id number] ADMISSION PERFORMANCE: Setup or clean-up assistance CODE: 05 SIT TO STAND: SIT TO STAND - STEP 1: Does the patient complete the activity by him/herself with no assistance (physical, verbal/nonverbal cueing, setup/clean-up)? No. SIT TO STAND - STEP 2: Does the patient need only setup/clean-up assistance from one helper? Yes. 1. [id number] ADMISSION PERFORMANCE: Setup or clean-up assistance CODE: 05 TRANSFERS: BED, CHAIR: CHAIR/[id number] TRANSFER - STEP 1: Does the patient complete the activity by him/herself with no assistance (physical, verbal/nonverbal cueing, setup/clean-up)? No. CHAIR/[id number] TRANSFER - STEP 2: Does the patient need only setup/clean-up assistance from one helper? No. CHAIR/[id number] TRANSFER - STEP 3: Does the patient need only verbal/nonverbal cueing or touching/steadying/contact guard assistance fro m one helper? Yes. 1. [id number] ADMISSION PERFORMANCE: Supervision or touching assistance CODE: 04 TRANSFER TOILET: TOILET TRANSFER - STEP 1: Does the patient complete the activity by him/herself with no assistance (physical, verbal/nonverbal cueing, setup/clean-up)? No. TOILET TRANSFER - STEP 2: Does the patient need only setup/clean-up assistance from one helper? No. TOILET TRANSFER - STEP 3: Does the patient need only verbal/nonverbal cueing or touching/steadying/contact guard assistance fro m one helper? Yes. 1. [id number] ADMISSION PERFORMANCE: Supervision or touching assistance CODE: 04 TRANSFERS: CAR: Not assessed/no information CODE: - WALK 10 FEET: Not assessed/no information CODE: - 1 STEP (CURB): Not assessed/no information CODE: - PICKING UP OBJECT: Not assessed/no information CODE: - DOES THE PATIENT USE A WHEELCHAIR/SCOOTER? CODE: EXPR WHEEL 50 FEET WITH TWO TURNS: Not assessed/no information CODE: - INDICATE THE TYPE OF WHEELCHAIR/SCOOTER USED: CODE: EXPR WHEEL 150 FEET: Not assessed/no information CODE: - INDICATE THE TYPE OF WHEELCHAIR/SCOOTER USED: CODE: EXPR BLADDER AND BOWEL: H350. BLADDER CONTINENCE (3-DAY ASSESSMENT PERIOD): Always continent (no documented incontinence) CODE: 0 H400. BOWEL CONTINENCE (3-DAY ASSESSMENT PERIOD): Always continent CODE: 0 SIGNATURE PANEL: The following modified sections: 1. [id number] Admission Performance, 1. [id number] Admission Performance, 1. [id number] Admission Performance, 1. [id number] Admission Performance, 1. [id number] Admission Performance, 1. [id number] Admission Performance, 1. [id number] Admission Performance, 1. [id number] Admission Performance , 1. [id number] Admission Performance, Code, H350. Bladder Continence (3-day assessment period), H350. B ladder Continence (3-day assessment period), H400. Bowel Continence (3-day assessment period) were [e lectronically] signed by Anibal Cervantes on ThuMar 31 2019 10:51:02 T-0600 (Central Standard Time)
--- NOTE | 2019-03-31 14:53 | FAST ---
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 Milton Torres M.D. ADMISSION DIAGNOSIS: - Stroke 01 - Left Body (Right Brain) (01.1) L DIRECTOR OF PHYSICAL SECURITY occlusion. ROLL LEFT AND RIGHT: ROLL LEFT AND RIGHT - STEP 1: Does the patient complete the activity by him/herself with no assistance (physical, verbal/nonverbal cueing, setup/clean-up)? No. ROLL LEFT AND RIGHT - STEP 2: Does the patient need only setup/clean-up assistance from one helper? Yes. 1. [id number] ADMISSION PERFORMANCE: Setup or clean-up assistance CODE: 05 SIT TO LYING: SIT TO LYING - STEP 1: Does the patient complete the activity by him/herself with no assistance (physical, verbal/nonverbal cueing, setup/clean-up)? No. SIT TO LYING - STEP 2: Does the patient need only setup/clean-up assistance from one helper? Yes. 1. [id number] ADMISSION PERFORMANCE: Setup or clean-up assistance CODE: 05 LYING TO SITTING: LYING TO SITTING ON SIDE OF BED - STEP 1: Does the patient complete the activity by him/herself with no assistance (physical, verbal/nonverbal cueing, setup/clean-up)? No. LYING TO SITTING ON SIDE OF BED - STEP 2: Does the patient need only setup/clean-up assistance from one helper? Yes. 1. [id number] ADMISSION PERFORMANCE: Setup or clean-up assistance CODE: 05 SIT TO STAND: SIT TO STAND - STEP 1: Does the patient complete the activity by him/herself with no assistance (physical, verbal/nonverbal cueing, setup/clean-up)? No. SIT TO STAND - STEP 2: Does the patient need only setup/clean-up assistance from one helper? Yes. 1. [id number] ADMISSION PERFORMANCE: Setup or clean-up assistance CODE: 05 TRANSFERS: BED, CHAIR: CHAIR/[id number] TRANSFER - STEP 1: Does the patient complete the activity by him/herself with no assistance (physical, verbal/nonverbal cueing, setup/clean-up)? No. CHAIR/[id number] TRANSFER - STEP 2: Does the patient need only setup/clean-up assistance from one helper? Yes. 1. [id number] ADMISSION PERFORMANCE: Setup or clean-up assistance CODE: 05 TRANSFER TOILET: Not assessed/no information CODE: - TRANSFERS: CAR: Not assessed/no information CODE: - WALK 10 FEET: WALK 10 FEET - STEP 1: Does the patient complete the activity by him/herself with no assistance (physical, verbal/nonverbal cueing, setup/clean-up)? No. WALK 10 FEET - STEP 2: Does the patient need only setup/clean-up assistance from one helper? Yes. 1. [id number] ADMISSION PERFORMANCE: Setup or clean-up assistance CODE: 05 WALK 50 FEET: WALK 50 FEET - STEP 1: Does the patient complete the activity by him/herself with no assistance (physical, verbal/nonverbal cueing, setup/clean-up)? No. WALK 50 FEET - STEP 2: Does the patient need only setup/clean-up assistance from one helper? Yes. 1. [id number] ADMISSION PERFORMANCE: Setup or clean-up assistance CODE: 05 WALK 150 FEET: WALK 150 FEET - STEP 1: Does the patient complete the activity by him/herself with no assistance (physical, verbal/nonverbal cueing, setup/clean-up)? No. WALK 150 FEET - STEP 2: Does the patient need only setup/clean-up assistance from one helper? Yes. 1. [id number] ADMISSION PERFORMANCE: Setup or clean-up assistance CODE: 05 WALK 10 FEET UNEVEN: Not assessed/no information CODE: - 1 STEP (CURB): 1 STEP CURB - STEP 1: Does the patient complete the activity by him/herself with no assistance (physical, verbal/nonverbal cueing, setup/clean-up)? No. 1 STEP CURB - STEP 2: Does the patient need only setup/clean-up assistance from one helper? Yes. 1. [id number] ADMISSION PERFORMANCE: Setup or clean-up assistance CODE: 4 STEPS: 4 STEPS - STEP 1: Does the patient complete the activity by him/herself with no assistance (physical, verbal/nonverbal cueing, setup/clean-up)? No. 4 STEPS - STEP 2: Does the patient need only setup/clean-up assistance from one helper? Yes. 1. [id number] ADMISSION PERFORMANCE: Setup or clean-up assistance CODE: 05 12 STEPS: 12 STEPS - STEP 1: Does the patient complete the activity by him/herself with no assistance (physical, verbal/nonverbal cueing, setup/clean-up)? No. 12 STEPS - STEP 2: Does the patient need only setup/clean-up assistance from one helper? Yes. 1. [id number] ADMISSION PERFORMANCE: Setup or clean-up assistance CODE: 05 PICKING UP OBJECT: Not assessed/no information CODE: - DOES THE PATIENT USE A WHEELCHAIR/SCOOTER? Q1. DOES THE PATIENT USE A WHEELCHAIR/SCOOTER?: Yes CODE: 1 WHEEL 50 FEET WITH TWO TURNS: Not assessed/no information CODE: - INDICATE THE TYPE OF WHEELCHAIR/SCOOTER USED: CODE: EXPR WHEEL 150 FEET: Not assessed/no information CODE: - INDICATE THE TYPE OF WHEELCHAIR/SCOOTER USED: CODE: EXPR BLADDER AND BOWEL: CODE: EXPR CODE: EXPR SIGNATURE PANEL: The following modified sections: 1. [id number] Admission Performance, 1. [id number] Admission Performance, 1. [id number] Admission Performance, 1. [id number] Admission Performance, 1. [id number] Admission Performance, 1. [id number] Admission Performance, 1. [id number] Admission Performance, 1. [id number] Admission Performance , 1. [id number] Admission Performance, 1. [id number] Admission Performance, 1. [id number] Admission Performanc e, Q1. Does the patient use a wheelchair/scooter?, Code were [electronically] signed by Parul Santos on ThuMar 31 2019 14:52:49 T-0600 (Central Standard Time)
--- NOTE | 2019-03-31 15:58 | FAST ---
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 Milton Torres M.D. 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 EATING: Not assessed/no information CODE: - ORAL HYGIENE: ORAL HYGIENE - STEP 1: Does the patient complete the activity by him/herself with no assistance (physical, verbal/nonverbal cueing, setup/clean-up)? No. ORAL HYGIENE - STEP 2: Does the patient need only setup/clean-up assistance from one helper? Yes. 1. [id number] ADMISSION PERFORMANCE: Setup or clean-up assistance CODE: 05 TOILETING HYGIENE: TOILETING HYGIENE - STEP 1: Does the patient complete the activity by him/herself with no assistance (physical, verbal/nonverbal cueing, setup/clean-up)? No. TOILETING HYGIENE - STEP 2: Does the patient need only setup/clean-up assistance from one helper? No. TOILETING HYGIENE - STEP 3: Does the patient need only verbal/nonverbal cueing or touching/steadying/contact guard assistance fro m one helper? Yes. 1. [id number] ADMISSION PERFORMANCE: Supervision or touching assistance CODE: 04 BATHING: SHOWER/BATHE SELF - STEP 1: Does the patient complete the activity by him/herself with no assistance (physical, verbal/nonverbal cueing, setup/clean-up)? No. SHOWER/BATHE SELF - STEP 2: Does the patient need only setup/clean-up assistance from one helper? No. SHOWER/BATHE SELF - STEP 3: Does the patient need only verbal/nonverbal cueing or touching/steadying/contact guard assistance fro m one helper? Yes. 1. [id number] ADMISSION PERFORMANCE: Supervision or touching assistance CODE: 04 DRESSING - UPPER BODY: DRESSING - UPPER BODY - STEP 1: Does the patient complete the activity by him/herself with no assistance (physical, verbal/nonverbal cueing, setup/clean-up)? No. DRESSING - UPPER BODY - STEP 2: Does the patient need only setup/clean-up assistance from one helper? Yes. 1. [id number] ADMISSION PERFORMANCE: Setup or clean-up assistance CODE: 05 DRESSING - LOWER BODY: DRESSING - LOWER BODY - STEP 1: Does the patient complete the activity by him/herself with no assistance (physical, verbal/nonverbal cueing, setup/clean-up)? No. DRESSING - LOWER BODY - STEP 2: Does the patient need only setup/clean-up assistance from one helper? No. DRESSING - LOWER BODY - STEP 3: Does the patient need only verbal/nonverbal cueing or touching/steadying/contact guard assistance fro m one helper? Yes. 1. [id number] ADMISSION PERFORMANCE: Supervision or touching assistance CODE: 04 PUTTING ON/TAKING OFF FOOTWEAR: FOOTWEAR - STEP 1: Does the patient complete the activity by him/herself with no assistance (physical, verbal/nonverbal cueing, setup/clean-up)? No. FOOTWEAR - STEP 2: Does the patient need only setup/clean-up assistance from one helper? No. FOOTWEAR - STEP 3: Does the patient need only verbal/nonverbal cueing or touching/steadying/contact guard assistance fro m one helper? Yes. 1. [id number] ADMISSION PERFORMANCE: Supervision or touching assistance CODE: 04 DOES THE PATIENT USE A WHEELCHAIR/SCOOTER? CODE: EXPR INDICATE THE TYPE OF WHEELCHAIR/SCOOTER USED: CODE: EXPR INDICATE THE TYPE OF WHEELCHAIR/SCOOTER USED: CODE: EXPR BLADDER AND BOWEL: CODE: EXPR CODE: EXPR SIGNATURE PANEL: The following modified sections: 1. [id number] Admission Performance, 1. [id number] Admission Performance, 1. [id number] Admission Performance, 1. [id number] Admission Performance, 1. [id number] Admission Performance, 1. [id number] Admission Performance were [electronically] signed by GISELLE Bustamante on ThuMar 31 2019 15:57:26 GMT-0600 (Central Standard Time)
--- NOTE | 2019-03-31 17:58 | R.PN ---
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 SUBJECTIVE: Pt denied any Shortness of Breath. Pt denied any depression. Labs reviewed and are stable. She completed Levaquin 500 mg daily for 5 days. She is making good prog ress with physical, occupational and speech therapy. VITAL SIGNS Temperature: 97.0 F SBP/DBP: 150/67 Pulse: 60 Resp: 16 MEDICATION ALLERGIES: No Known Drug Allergies (NKDA) ENVIRONMENTAL ALLERGIES: - Substance Allergies None Known - Other Allergies None Known NURSING: - Shower allowing shower - Bladder care per protocol - Skin care per protocol PRECAUTIONS: - Weight Bearing Precaution WBAT left LE ACTIVITIES OOB only with supervision THERAPIES: - Occupational Therapy Cognitive Retraining. Visual Perceptual Training. - Dietary and Nutrition Adequate Nutrition. Nutritional Education. Nutritional Supplements. - Speech Therapy Cognitive Training. Expressive Language Skills. Memory Strategies. Receptive Language Skills. Speech Intelligibility Training. PHYSICAL EXAM - Gen Alert and awake Lying in bed No apparent distress Oriented to: person, time, and place - Skin Allergic rash and edema of the the legs No abnormalities - Eyes No abnormalities - ENMT No abnormalities - Neck No abnormalities - CVS RRR - Chest No abnormalities - Resp Clear to auscultation - Abd + bowel sounds - GI nondistended Deferred - No abnormalities - Ext Mild to moderate bilateral lower extremity edema. - MSK 4+/5 weakness in left lower extremity - Neuro 4/5 strength left lower extremity. - Psych No abnormalities ASSESSMENT: Pt. is a 83 yo Right-handed white female.On 03/10/2019 Pt. presented to [facility] with sudden o nset of left-side weakness.On 03/10/2019 she was admitted to [facility] with diagnosis L FIELD COUNSEL occ lusion.Her impairment category is Stroke 01 - Left Body (Right Brain) (01.1).Pre-morbidly, Pt. was i ndependent/mod-I in Self-Care, Sphincter Control, Transfers Control, Locomotion, Communication, and S ocial Cognition; and she had good Sphincter Control.Currently, she has deficits of Self-Care, Transfe rs Control, Locomotion, Communication, Social Cognition, Endurance, Balance, and Safety Awareness.Pt. is now referred to [facility] for acute in-patient rehabilitation in order to maximize patient's functional independence in activities of daily living, strength, ROM, and mobilit y.- Rehab Goal Patient has realistic goal of being discharged at assistance level 6-Jakob to reside at Home with Fam christina/Relatives. MDM/PLAN: - Physical Therapy Gait dysfunction - to improve, our physical therapists will perform initial evaluation of pt's statu s upon admission and devise an individualized program for Gait Training, and Wheel Chair mobility Inability to transfer - to improve, our physical therapists will perform initial evaluation of pt's status upon admission and devise an individualized program for Bed mobility Need for home safety evaluation - to improve, our physical therapists will perform initial evaluatio n of pt's status upon admission and devise an individualized program for Home Evaluation Need in caregiver upon discharge - to improve, our physical therapists will perform initial evaluati on of pt's status upon admission and devise an individualized program for Caregiver Training Edema - to improve, our physical therapists will perform initial evaluation of pt's status upon admi ssion and devise an individualized program for Elevation Training, and Lymphedema Therapy New precaution - to improve, our physical therapists will perform initial evaluation of pt's status upon admission and devise an individualized program for Patient precaution education Poor balance - to improve, our physical therapists will perform initial evaluation of pt's status up on admission and devise an individualized program for Balance Training Poor endurance - to improve, our physical therapists will perform initial evaluation of pt's status upon admission and devise an individualized program for Endurance Training Weakness - to improve, our physical therapists will perform initial evaluation of pt's status upon a dmission and devise an individualized program for Aquatic Therapy, Neuromuscular Reeducation, and Str engthening Achieving independence - to improve, our physical therapists will perform initial evaluation of pt's status upon admission and devise an individualized program for Community Reintegration Activities - Occupational Therapy ADL deficits - to improve, our occupation therapists will perform initial evaluation of pt's status upon admission and devise an individualized program for Bathing, Bed mobility, Community Reintegratio n, Cooking, Dressing, Eating, Fine Motor Skills, Grooming, Homemaking, Kitchen Mobility, Laundry, Pat ient Education, Safety Awareness, Splinting - Positioning, Transfers(Toilet, Tub, Shower), and Wheel Chair Management Cognitive deficits - to improve, our occupation therapists will perform initial evaluation of pt's s tatus upon admission and devise an individualized program for Cognition - orientation Need for manager care - to improve, our occupation therapists will perform initial evaluation of pt's status upon admission and devise an individualized program for Caregiver Training Weakness - to improve, our occupation therapists will perform initial evaluation of pt's status upon admission and devise an individualized program for Aquatic Therapy, Balance, Endurance, UE ROM, and UE strengthening - Other See attached MAR (Medication Administration Record) - Diet Type Continue Regular - Diet - Liquid Texture Continue Regular - Tube Feed Continue N/A - Bladder care per protocol - Weight Bearing Precaution WBAT left LE - Skin care per protocol - Diet - Solid Texture Continue Regular - Shower allowing shower for Dementia, TBI, Stroke, or others FUNCTIONAL STATUS: UPDATED AT WEEKLY TEAM CONFERENCE - Bladder Same accident frequency: 7-Ind - No accidents in the past 7 days - Bowel Same accident frequency: 7-Ind - No accidents in the past 7 days - Walking Same score based on distance walked: 1(<=50ft) - Wheelchair Same score based on distance traveled: 1(<=50ft) FUNCTIONAL STATUS: - Self-Care A. Eating sup B. Grooming sup C. Bathing modA D. Dressing - Upper sup E. Dressing - Lower maxA F. Toileting modA - Sphincter Control G: Bladder control Ind H: Bowel control Ind - Transfers Control I. Bed/Chair/Wheelchair CGA J. Toilet CGA K. Tub/Shower Joaquim - Locomotion L. Walk/Wheelchair (C) maxA L. Walk/Wheelchair (W) ADNO M. Stairs ADNO - Communication N. Comprehension (B) sup O. Expression (B) sup - Social Cognition P. Social Interaction sup Q. Problem Solving sup R. Memory sup - Endurance Poor - Balance Poor - Safety Awareness Fair QI SCORES: - Self-Care A. Eating 05-Setup or clean-up assistance B. Oral hygiene 05-Setup or clean-up assistance C. Toileting hygiene 05-Setup or clean-up assistance E. Shower/bathe self 03-Partial/moderate assistance F. Upper body dressing 05-Setup or clean-up assistance G. Lower body dressing 04-Supervision or touching assistance H. Putting on/taking off footwear 88-Not attempted due to medical condition or safety concerns - Mobility A. Roll left and right 04-Supervision or touching assistance B. Sit to lying 04-Supervision or touching assistance C. Lying to sitting on side of bed 04-Supervision or touching assistance D. Sit to stand 03-Partial/moderate assistance E. Chair/[id number] transfer 05-Setup or clean-up assistance F. Toilet transfer 05-Setup or clean-up assistance G. Car transfer 88-Not attempted due to medical condition or safety concerns I. Walk 10 feet 03-Partial/moderate assistance J. Walk 50 feet with two turns 88-Not attempted due to medical condition or safety concerns K. Walk 150 feet 88-Not attempted due to medical condition or safety concerns L. Walking 10 feet on uneven surfaces 88-Not attempted due to medical condition or safety concerns M. 1 step (curb) 88-Not attempted due to medical condition or safety concerns N. 4 steps 88-Not attempted due to medical condition or safety concerns O. 12 steps 88-Not attempted due to medical condition or safety concerns P. Picking up object 88-Not attempted due to medical condition or safety concerns R. Wheel 50 feet with two turns 88-Not attempted due to medical condition or safety concerns S. Wheel 150 feet 88-Not attempted due to medical condition or safety concerns - Bladder and Bowel Bladder continence 0-Always continent Bowel continence 0-Always continent CURRENT FUNC. 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
[2019-03-31] MEDS: ATORVASTATIN 80 MG TAB PO SCH (20:35)
[2019-04-01] MEDS: carvediloL 25 MG TAB PO SCH (05:03)
[2019-04-01 06:53] VITALS: BP 168/72; TEMP 97.4
[2019-04-01] MEDS: HYDROCORTISONE 1 % OINT 30GM TOP SCH (08:00)
[2019-04-01] MEDS: CYANOCOBALAMIN 1,000 MCG TAB PO SCH (08:09)
[2019-04-01] MEDS: predniSONE 10 MG TAB PO SCH (08:09)
[2019-04-01] MEDS: MAGNESIUM OXIDE 400 MG TAB PO SCH (08:09)
[2019-04-01] MEDS: ISOSORBIDE MONO SR 30 MG TAB PO SCH (08:09)
[2019-04-01] MEDS: VITAMIN D 1000 UNIT TAB PO SCH (08:09)
[2019-04-01] MEDS: CLOPIDOGREL 75 MG TABLET PO SCH (08:09)
[2019-04-01] MEDS: FERROUS SULFATE 325 MG TAB PO SCH (08:09)
[2019-04-01] MEDS: CRANBERRY FRUIT EXTRACT 200 MG CAP PO SCH (08:09)
[2019-04-01] MEDS: ASPIRIN 81 MG CHEWABLE TABLET PO SCH (08:09)
[2019-04-01] MEDS: VITAMIN A PO SCH (08:10)
[2019-04-01] MEDS: FUROSEMIDE 20 MG TABLET PO SCH (08:10)
[2019-04-01] MEDS: FE SULF/FA/VIT B COMP & C TAB PO SCH (08:10)
[2019-04-01] MEDS: PROMOD 30 ML DOSE PO SCH (08:11)
[2019-04-01 08:23] LABS: Hematocrit 30.4 % (36.0-45.0)
--- NOTE | 2019-04-01 09:42 | P.RH.PN ---
Estimated Length of Stay: 12 Expected Discharge Date: 04/01/19 Discharge Disposition Plan: Home Family Support: Yes Longterm Goal: Mobility, Transfers, Self Care Vital Signs: Last Vital Signs Temp 97.4 F 04/01/19 06:52 Pulse 62 04/01/19 08:10 Resp 16 04/01/19 06:52 BP 168/72 H 04/01/19 08:10 Pulse Ox 98 04/01/19 06:52 Laboratory: Laboratory Last Values WBC 2.6 K/uL (4.3-10.9) L 03/31/19 05:33 RBC 3.00 M/uL (3.86-4.86) L 03/31/19 05:33 Hgb 10.3 g/dL (12.0-15.0) L 04/01/19 07:51 Hct 30.4 % (36.0-45.0) L 04/01/19 07:51 MCV 90.0 fL (80-100) 03/31/19 05:33 MCH 30.6 pg (27.0-35.0) 03/31/19 05:33 MCHC 34.0 g/dL (32.0-36.0) 03/31/19 05:33 RDW 17.5 % (12.1-15.2) H 03/31/19 05:33 Plt Count 65 K/uL (152-406) L 03/31/19 05:33 MPV 9.1 fL (7.6-11.3) 03/31/19 05:33 Neutrophils % 53.1 % (41.7-73.7) 03/31/19 05:33 Lymphocytes % 28.5 % (15.3-44.8) 03/31/19 05:33 Monocytes % 13.0 % (3.3-12.3) H 03/31/19 05:33 Eosinophils % 4.7 % (0-4.4) H 03/31/19 05:33 Basophils % 0.7 % (0-1.3) 03/31/19 05:33 Absolute Neutrophils 1.4 K/uL (1.8-8.0) L 03/31/19 05:33 Segmented Neutrophils 53 % (40-80) 03/31/19 05:33 Absolute Lymphocytes 0.8 K/uL (0.7-4.9) 03/31/19 05:33 Lymphocytes 32 % (15-42) 03/31/19 05:33 Monocytes 11 % (0-10) H 03/31/19 05:33 Absolute Monocytes 0.3 K/uL (0.1-1.3) 03/31/19 05:33 Eosinophils 4 % (0-3) H 03/31/19 05:33 Absolute Eosinophils 0.1 K/uL (0-0.5) 03/31/19 05:33 Absolute Basophils 0.0 K/uL (0-0.5) 03/31/19 05:33 Atypical Lymphocytes 1 03/22/19 05:59 Hypochromasia 1+ 03/22/19 05:59 Poikilocytosis 1+ 03/31/19 05:33 Anisocytosis 1+ 03/31/19 05:33 Microcytosis 1+ 03/31/19 05:33 Ovalocytes 1+ 03/22/19 05:59 Cobb Cells 1+ 03/31/19 05:33 Elliptocytes 1+ 03/31/19 05:33 Morphology Comment Noted (NOT SEEN) 03/31/19 05:33 Sodium 142 mmol/L (136-145) 03/31/19 05:33 Potassium 4.1 mmol/L (3.5-5.1) 03/31/19 05:33 Chloride 112 mmol/L (98-107) H 03/31/19 05:33 Carbon Dioxide 26 mmol/L (21-32) 03/31/19 05:33 BUN 31 mg/dL (7-18) H 03/31/19 05:33 Creatinine 1.25 mg/dL (0.55-1.3) 03/31/19 05:33 Estimated GFR 41 mL/min (=/>90) L 03/31/19 05:33 Glucose 86 mg/dL (74-106) 03/31/19 05:33 Calcium 8.0 mg/dL (8.5-10.1) L 03/31/19 05:33 Magnesium 2.4 mg/dL (1.8-2.4) 03/31/19 05:33 Albumin 2.0 g/dL (3.4-5.0) L 03/31/19 05:33 Prealbumin 9.4 mg/dL (20-40) L 03/31/19 05:33 Urine Color Dk yellow 03/22/19 18: Urine Appearance Clear 03/22/19 18:19 Urine pH 5.5 (5.0-7.0) 03/22/19 18:19 Ur Specific [place] 1.015 (1.005-1.030) 03/22/19 18:19 Urine Ketones Negative (NEG) 03/22/19 18:19 Urine Blood Trace (NEG) H 03/22/19 18:19 Urine Nitrite Negative (NEG) 03/22/19 18:19 Urine Bilirubin Negative (NEG) 03/22/19 18:19 Urine Urobilinogen 0.2 mg/dL (0.2-1.0) 03/22/19 18:19 Ur Leukocyte Esterase 1+ (NEG) H 03/22/19 18:19 Urine RBC 5-10 /HPF (NONE SEEN) H 03/22/19 18:19 Urine WBC 5-10 /HPF (<5) H 03/22/19 18:19 Ur Squamous Epith Cells 5-10 /HPF (NONE SEEN) H 03/22/19 18:19 Amorphous Sediment 3+ /HPF (NONE SEEN) H 03/22/19 18:19 Urine Bacteria >50 /HPF (<20) H 03/22/19 18:19 Hyaline Casts 5-10 /LPF (NONE SEEN) 03/22/19 18:19 Urine Mucus 3+ /HPF (NONE SEEN) H 03/22/19 18:19 Urine Culture Reflexed Reflexed 03/22/19 18:19 Urine Glucose Negative (NEG) 03/22/19 18:19 Urine Total Protein Negative (NEG) 03/22/19 18:19 ABO/Rh O NEGATIVE 03/22/19 08:19 Antibody Screen Negative 03/22/19 08:19 Crossmatch See Detail 03/22/19 08:19 Weight: 146 lb 12.8 oz Wound Present: No Closed Surgical Incision Present: No Negative Pressure Wound Therapy Present: No Physician Update: Her Hgb is stable at 10.3 after transfusion 9 days ago. He is done very well with occupational and physical therapy. She still has mild difficulty with cognitive functioning after her stroke. She has fair problem solving but needs verbal ques. She is independent with ambulation using a walker up and down stairs. She will discharge home today with home health. Medical Issues: Patient is incontinent less than daily with bladder and occasional incontinent with bowel. Functional Improvement: Patient has met all short-term goals at this time and is progressing toward long-term goals. Patient requires VC for tasks, due to patient stating "I won't be doing any of this, this way, when I get home". Functional Improvement Occupational Therapy: Pt making good physical gains with improving activity tolerance. Cooperative and motivated to participate. Pt does require encouragement and assist with problem solving and attention. Need to further assess safety with functional tasks. Pt continues to require physical assist with Bathing and footware. Speech Therapy Update: Patient cont. to present with mild cognitive-linguistic impairments characterized by reduced temporal orientation, occasional word- finding difficulties, short-term memory deficits, and reduced insight and judgment into her deficits and their impact on her safety and functional independence. Patient will require intermittent supv for medication management and IADL's. Patient is able to communicate wants/needs without difficulty. 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 Please see the Rehabilitation Signature page for all necessary signatures.
--- NOTE | 2019-04-01 13:14 | FAST ---
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 Milton Torres M.D. 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 EATING: Not assessed/no information CODE: - ORAL HYGIENE: Not assessed/no information CODE: - TOILETING HYGIENE: TOILETING HYGIENE - STEP 1: Does the patient complete the activity by him/herself with no assistance (physical, verbal/nonverbal cueing, setup/clean-up)? No. TOILETING HYGIENE - STEP 2: Does the patient need only setup/clean-up assistance from one helper? Yes. 1. [id number] ADMISSION PERFORMANCE: Setup or clean-up assistance CODE: 05 BATHING: Not assessed/no information CODE: - DRESSING - UPPER BODY: DRESSING - UPPER BODY - STEP 1: Does the patient complete the activity by him/herself with no assistance (physical, verbal/nonverbal cueing, setup/clean-up)? Yes. 1. [id number] ADMISSION PERFORMANCE: Independent CODE: 06 DRESSING - LOWER BODY: DRESSING - LOWER BODY - STEP 1: Does the patient complete the activity by him/herself with no assistance (physical, verbal/nonverbal cueing, setup/clean-up)? No. DRESSING - LOWER BODY - STEP 2: Does the patient need only setup/clean-up assistance from one helper? Yes. 1. [id number] ADMISSION PERFORMANCE: Setup or clean-up assistance CODE: 05 PUTTING ON/TAKING OFF FOOTWEAR: FOOTWEAR - STEP 1: Does the patient complete the activity by him/herself with no assistance (physical, verbal/nonverbal cueing, setup/clean-up)? No. FOOTWEAR - STEP 2: Does the patient need only setup/clean-up assistance from one helper? No. FOOTWEAR - STEP 3: Does the patient need only verbal/nonverbal cueing or touching/steadying/contact guard assistance fro m one helper? Yes. 1. [id number] ADMISSION PERFORMANCE: Supervision or touching assistance CODE: 04 DOES THE PATIENT USE A WHEELCHAIR/SCOOTER? CODE: EXPR INDICATE THE TYPE OF WHEELCHAIR/SCOOTER USED: CODE: EXPR INDICATE THE TYPE OF WHEELCHAIR/SCOOTER USED: CODE: EXPR BLADDER AND BOWEL: CODE: EXPR CODE: EXPR SIGNATURE PANEL: The following modified sections: 1. [id number] Admission Performance, 1. [id number] Admission Performance, 1. [id number] Admission Performance, 1. [id number] Admission Performance were [electronically] signed by Brianda Watts OT on ThuApr 01 2019 13:14:04 GMT-0600 (Central Standard Time)
--- NOTE | 2019-04-01 13:32 | FAST ---
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 Milton Torres M.D. 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 EATING: EATING - STEP 1: Does the patient complete the activity by him/herself with no assistance (physical, verbal/nonverbal cueing, setup/clean-up)? No. EATING - STEP 2: Does the patient need only setup/clean-up assistance from one helper? Yes. 1. [id number] ADMISSION PERFORMANCE: Setup or clean-up assistance CODE: 05 ORAL HYGIENE: ORAL HYGIENE - STEP 1: Does the patient complete the activity by him/herself with no assistance (physical, verbal/nonverbal cueing, setup/clean-up)? No. ORAL HYGIENE - STEP 2: Does the patient need only setup/clean-up assistance from one helper? Yes. 1. [id number] ADMISSION PERFORMANCE: Setup or clean-up assistance CODE: 05 TOILETING HYGIENE: TOILETING HYGIENE - STEP 1: Does the patient complete the activity by him/herself with no assistance (physical, verbal/nonverbal cueing, setup/clean-up)? No. TOILETING HYGIENE - STEP 2: Does the patient need only setup/clean-up assistance from one helper? Yes. 1. [id number] ADMISSION PERFORMANCE: Setup or clean-up assistance CODE: 05 BATHING: Not assessed/no information CODE: - DRESSING - UPPER BODY: DRESSING - UPPER BODY - STEP 1: Does the patient complete the activity by him/herself with no assistance (physical, verbal/nonverbal cueing, setup/clean-up)? No. DRESSING - UPPER BODY - STEP 2: Does the patient need only setup/clean-up assistance from one helper? Yes. 1. [id number] ADMISSION PERFORMANCE: Setup or clean-up assistance CODE: 05 DRESSING - LOWER BODY: DRESSING - LOWER BODY - STEP 1: Does the patient complete the activity by him/herself with no assistance (physical, verbal/nonverbal cueing, setup/clean-up)? No. DRESSING - LOWER BODY - STEP 2: Does the patient need only setup/clean-up assistance from one helper? Yes. 1. [id number] ADMISSION PERFORMANCE: Setup or clean-up assistance CODE: 05 PUTTING ON/TAKING OFF FOOTWEAR: FOOTWEAR - STEP 1: Does the patient complete the activity by him/herself with no assistance (physical, verbal/nonverbal cueing, setup/clean-up)? No. FOOTWEAR - STEP 2: Does the patient need only setup/clean-up assistance from one helper? No. FOOTWEAR - STEP 3: Does the patient need only verbal/nonverbal cueing or touching/steadying/contact guard assistance fro m one helper? Yes. 1. [id number] ADMISSION PERFORMANCE: Supervision or touching assistance CODE: ROLL LEFT AND RIGHT: ROLL LEFT AND RIGHT - STEP 1: Does the patient complete the activity by him/herself with no assistance (physical, verbal/nonverbal cueing, setup/clean-up)? No. ROLL LEFT AND RIGHT - STEP 2: Does the patient need only setup/clean-up assistance from one helper? No. ROLL LEFT AND RIGHT - STEP 3: Does the patient need only verbal/nonverbal cueing or touching/steadying/contact guard assistance fro m one helper? Yes. 1. [id number] ADMISSION PERFORMANCE: Supervision or touching assistance CODE: SIT TO LYING: SIT TO LYING - STEP 1: Does the patient complete the activity by him/herself with no assistance (physical, verbal/nonverbal cueing, setup/clean-up)? No. SIT TO LYING - STEP 2: Does the patient need only setup/clean-up assistance from one helper? No. SIT TO LYING - STEP 3: Does the patient need only verbal/nonverbal cueing or touching/steadying/contact guard assistance fro m one helper? Yes. 1. [id number] ADMISSION PERFORMANCE: Supervision or touching assistance CODE: 04 LYING TO SITTING: LYING TO SITTING ON SIDE OF BED - STEP 1: Does the patient complete the activity by him/herself with no assistance (physical, verbal/nonverbal cueing, setup/clean-up)? No. LYING TO SITTING ON SIDE OF BED - STEP 2: Does the patient need only setup/clean-up assistance from one helper? No. LYING TO SITTING ON SIDE OF BED - STEP 3: Does the patient need only verbal/nonverbal cueing or touching/steadying/contact guard assistance fro m one helper? Yes. 1. [id number] ADMISSION PERFORMANCE: Supervision or touching assistance CODE: SIT TO STAND: SIT TO STAND - STEP 1: Does the patient complete the activity by him/herself with no assistance (physical, verbal/nonverbal cueing, setup/clean-up)? No. SIT TO STAND - STEP 2: Does the patient need only setup/clean-up assistance from one helper? No. SIT TO STAND - STEP 3: Does the patient need only verbal/nonverbal cueing or touching/steadying/contact guard assistance fro m one helper? Yes. 1. [id number] ADMISSION PERFORMANCE: Supervision or touching assistance CODE: 04 TRANSFERS: BED, CHAIR: CHAIR/[id number] TRANSFER - STEP 1: Does the patient complete the activity by him/herself with no assistance (physical, verbal/nonverbal cueing, setup/clean-up)? No. CHAIR/[id number] TRANSFER - STEP 2: Does the patient need only setup/clean-up assistance from one helper? No. CHAIR/[id number] TRANSFER - STEP 3: Does the patient need only verbal/nonverbal cueing or touching/steadying/contact guard assistance fro m one helper? Yes. 1. [id number] ADMISSION PERFORMANCE: Supervision or touching assistance CODE: 04 TRANSFER TOILET: TOILET TRANSFER - STEP 1: Does the patient complete the activity by him/herself with no assistance (physical, verbal/nonverbal cueing, setup/clean-up)? No. TOILET TRANSFER - STEP 2: Does the patient need only setup/clean-up assistance from one helper? No. TOILET TRANSFER - STEP 3: Does the patient need only verbal/nonverbal cueing or touching/steadying/contact guard assistance fro m one helper? Yes. 1. [id number] ADMISSION PERFORMANCE: Supervision or touching assistance CODE: 04 TRANSFERS: CAR: CAR TRANSFER - STEP 1: Does the patient complete the activity by him/herself with no assistance (physical, verbal/nonverbal cueing, setup/clean-up)? No. CAR TRANSFER - STEP 2: Does the patient need only setup/clean-up assistance from one helper? No. CAR TRANSFER - STEP 3: Does the patient need only verbal/nonverbal cueing or touching/steadying/contact guard assistance fro m one helper? Yes. 1. [id number] ADMISSION PERFORMANCE: Supervision or touching assistance CODE: 04 WALK 10 FEET: WALK 10 FEET - STEP 1: Does the patient complete the activity by him/herself with no assistance (physical, verbal/nonverbal cueing, setup/clean-up)? No. WALK 10 FEET - STEP 2: Does the patient need only setup/clean-up assistance from one helper? No. WALK 10 FEET - STEP 3: Does the patient need only verbal/nonverbal cueing or touching/steadying/contact guard assistance fro m one helper? Yes. 1. [id number] ADMISSION PERFORMANCE: Supervision or touching assistance CODE: 04 WALK 50 FEET: Not assessed/no information CODE: - WALK 150 FEET: Not assessed/no information CODE: - WALK 10 FEET UNEVEN: WALKING 10 FEET ON UNEVEN SURFACES - STEP 1: Does the patient complete the activity by him/herself with no assistance (physical, verbal/nonverbal cueing, setup/clean-up)? No. WALKING 10 FEET ON UNEVEN SURFACES - STEP 2: Does the patient need only setup/clean-up assistance from one helper? No. WALKING 10 FEET ON UNEVEN SURFACES - STEP 3: Does the patient need only verbal/nonverbal cueing or touching/steadying/contact guard assistance fro m one helper? Yes. 1. [id number] ADMISSION PERFORMANCE: Supervision or touching assistance CODE: 04 1 STEP (CURB): 1 STEP CURB - STEP 1: Does the patient complete the activity by him/herself with no assistance (physical, verbal/nonverbal cueing, setup/clean-up)? No. 1 STEP CURB - STEP 2: Does the patient need only setup/clean-up assistance from one helper? No. 1 STEP CURB - STEP 3: Does the patient need only verbal/nonverbal cueing or touching/steadying/contact guard assistance fro m one helper? Yes. 1. [id number] ADMISSION PERFORMANCE: Supervision or touching assistance CODE: 04 4 STEPS: Not assessed/no information CODE: - 12 STEPS: PICKING UP OBJECT: Not assessed/no information CODE: - DOES THE PATIENT USE A WHEELCHAIR/SCOOTER? Q1. DOES THE PATIENT USE A WHEELCHAIR/SCOOTER?: Yes CODE: 1 WHEEL 50 FEET WITH TWO TURNS: WHEEL 50 FEET WITH TWO TURNS - STEP 1: Does the patient complete the activity by him/herself with no assistance (physical, verbal/nonverbal cueing, setup/clean-up)? Yes. 1. [id number] ADMISSION PERFORMANCE: Independent CODE: 06 INDICATE THE TYPE OF WHEELCHAIR/SCOOTER USED: RR1. INDICATE THE TYPE OF WHEELCHAIR/SCOOTER USED.: Manual CODE: 1 WHEEL 150 FEET: WHEEL 150 FEET - STEP 1: Does the patient complete the activity by him/herself with no assistance (physical, verbal/nonverbal cueing, setup/clean-up)? No. WHEEL 150 FEET - STEP 2: Does the patient need only setup/clean-up assistance from one helper? Yes. 1. [id number] ADMISSION PERFORMANCE: Setup or clean-up assistance CODE: 05 INDICATE THE TYPE OF WHEELCHAIR/SCOOTER USED: SS1. INDICATE THE TYPE OF WHEELCHAIR/SCOOTER USED.: Manual CODE: 1 BLADDER AND BOWEL: H350. BLADDER CONTINENCE (3-DAY ASSESSMENT PERIOD): Incontinent daily (at least once a day) CODE: 3 H400. BOWEL CONTINENCE (3-DAY ASSESSMENT PERIOD): Occasionally incontinent (one episode of bowel incontinence) CODE: 1 SIGNATURE PANEL: The following modified sections: 1. [id number] Admission Performance, 1. [id number] Admission Performance, 1. MQ2968L Admission Performance, 1. BM4136I Admission Performance, 1. [id number] Admission Performance, 1. DQ9046s Admission Performance, 1. ON1300b Admission Performance, 1. GB7156k Admission Performance , 1. CU6030g Admission Performance, 1. BU9927F Admission Performance, 1. RI5821E Admission Performanc e, 1. HG1966V Admission Performance, 1. LY9429V Admission Performance, 1. XK9252F Admission Performan ce, 1. WQ3911K Admission Performance, 1. RA6304C Admission Performance, 1. MT1469B Admission Performa nce, 1. KT5459B Admission Performance, 1. FX0170A Admission Performance, 1. OD2837B Admission Perform ance, 1. UM3087H Admission Performance, 1. ZB1437R Admission Performance, 1. XE8911M Admission Perfor mary, Q1. Does the patient use a wheelchair/scooter?, 1. SA3985S Admission Performance, RR1. Indicat e the type of wheelchair/scooter used., 1. FS8108T Admission Performance, Code, SS1. Indicate the typ e of wheelchair/scooter used., H350. Bladder Continence (3-day assessment period), H400. Bowel Contin ence (3-day assessment period) were [electronically] signed by [email or web address] on ThuApr 01 201 9 13:31:46 GMT-0600 (Central Standard Time)
--- OUTSIDE RECORDS SUMMARY | 2019-04-03 14:16 | XMS REPORT ---
:1935 [facility] Address [address] [place] [address] [address] [place] [address] Care Team Providers Name Role Phone Unavailable Unavailable Unavailable Problems This patient has no known problems. Allergies, Adverse Reactions, Alerts This patient has no known allergies or adverse reactions. Medications This patient has no known medications.
--- OUTSIDE RECORDS SUMMARY | 2019-04-03 14:16 | XMS REPORT | Summary of Care ---
:1935 Author Organization [facility] - Health Address [address] [place] [address] Care Team Providers Name Role Phone Unavailable Primary Care Provider Unavailable Encounter Details Date Type Department Care Team Description 11/12/2018 Orders Only [facility] Doctor Unassigned, No [address] [facility] [place] [address] [address] [place] [address] Allergies No Known Allergiesdocumented as of this encounter (statuses as of 12/24/2018) Medications Medication Sig Dispensed Refills Start Date End Date Status isosorbide mononitrate Take 30 mg by 0 Active 30 mg 24 hr tablet mouth daily. aspirin 81 mg chewable Take 81 mg by 0 Active tablet mouth daily. carvedilol 25 mg tablet Take 25 mg by 0 Active mouth 2 (two) times daily with meals. atorvastatin 20 mg Take 20 mg by 0 Active tablet mouth at bedtime. vitamin A 8,000 unit Take 8,000 Units 0 Active capsule by mouth daily. vitamin B-12 (VITAMIN Take 1,000 mcg 0 Active B-12) 1,000 mcg tablet by mouth daily. Hyyil-6-THC-EPA-Fish Oil Take 1,000 mg by 0 Active 1,000 mg (120 mg-180 mg) mouth daily. Cap Cholecalciferol, Vitamin Take 1,000 Units 0 Active D3, (VITAMIN D3) 1,000 by mouth daily. unit capsule documented as of this encounter (statuses as of 12/24/2018) Active Problems Problem Noted Date SHIELA (acute kidney injury) 10/02/2018 Elevated troponin I level 10/02/2018 Scalp hematoma 10/02/2018 Fall 10/02/2018 Myocardial infarction type 2 10/02/2018 Elevated brain natriuretic peptide (BNP) level 10/02/2018 Essential hypertension 10/02/2018 Cardiac murmur 10/02/2018 Anemia associated with nutritional deficiency 10/02/2018 Hyperkalemia 10/01/2018 documented as of this encounter (statuses as of 12/24/2018) Social History Tobacco Use Types Packs/Day Years Used Date Never Smoker Smokeless Tobacco: Never Used Alcohol Use Drinks/Week oz/Week Comments No Sex Assigned at Date Recorded Not on file Job Start Date Occupation Industry Not on file Not on file Not on file Travel History Travel Start Travel End No recent travel history available. documented as of this encounter Last Filed Vital Signs Not on filedocumented in this encounter Plan of Treatment Health Maintenance Due Date Last Done Comments DTaP,Tdap,and Td Vaccines (1 - Tdap) 1954 Zoster Recombinant Vaccine (SHINGRIX) (1 of 2) 1984 Medicare Wellness Visit 10/13/1999 Osteoporosis Screening 10/13/1999 PNEUMOCOCCAL VACCINES 65+ (1 of 2 - PCV13) 10/13/1999 INFLUENZA VACCINE 01/23/2019 documented as of this encounter Procedures Procedure Name Priority Date/Time Associated Diagnosis Comments INSURANCE CORRESPONDENCE Routine 11/12/2018 12:01 AM CDT documented in this encounter Results Not on filedocumented in this encounter Insurance Payer Benefit Plan Subscriber ID Effective Phone Address Type / Group Dates [employer]HC MEDICARE [id number] 2018-Pres Medicare Adv HEALTHCARE COMPLETE ent PPO MEDICARE CHOICE ADVANTAGE [place] MEDICAID OF xxxxxxxxx 2018-Pre [phone] Medicaid [place] sent [id number] [place] [address] documented as of this encounter
== END 2019-04-01 12:50 | disposition home or self-care (01) | DRG 57 ==
LOC: 5TH 17:38
PROVIDERS: ADMIT Psychiatry & Neurology Neurology with Special Qualifications in Child Neurology; ATTEND Psychiatry & Neurology Neurology with Special Qualifications in Child Neurology
DX: I69.354 Hemiplegia and hemiparesis following cerebral infarction affecting left non-dominant side (principal); I13.0 Hypertensive heart and chronic kidney disease with heart failure and stage 1 through stage 4 chronic kidney disease, or unspecified chronic kidney disease; I10 Essential (primary) hypertension; N18.3 Chronic kidney disease, stage 3 (moderate); I50.9 Heart failure, unspecified; I25.10 Atherosclerotic heart disease of native coronary artery without angina pectoris; I66.22 Occlusion and stenosis of left posterior cerebral artery; Z95.1 Presence of aortocoronary bypass graft; I25.2 Old myocardial infarction
CPT/HCPCS: 36415; 36430; 71045; 80048; 81001; 82040; 82274; 83735; 84134; 85014; 85018; 85025; 86850; 86900; 86901; 87077; 87086; 87088; 87186; 92507; 92523; 97116; 97127; 97161; 97530; J1940; J7030; J7512; P9016